=== PATIENT | female | born 1980 | race Caucasian/White ===

== ENCOUNTER 2017-05-22 16:52 | Emergency (ER) | payer MEDICARE, MEDICAID ==
[~2017-05-22] VITALS: Ht 157.5 cm; Wt 56.7 kg
[~2017-05-22 16:52] MED LIST: ATIVAN1 M1 PO; HYDROCHLOROTH12.5 M1 PO; KLONOPIN0.5 M1 PO; MOBIC7.5 MG PO; NORCO1 TAB PO; TRAZODONE50 MG PO; WELLBUTRIN100 MG PO; ZANAFLEX 2MG TAB2 MG PO; ZYRTEC10 M3 PO
--- NOTE | 2017-05-22 18:13 | Emergency Room Report ---
See Addendum History of Present Illness Time Seen by [id number] Presenting Problem in Triage Pt arrived:Walked Presenting Problem:FELL AND BACK OF HEAD HIT SINK, FRONT HIT BATHTUB. 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 N Clinical Suspician of Infection? N Mental Status: 1 - Regular (Normal Baseline) Sepsis Risk:Low Sepsis Risk Have you (or family members/close friends) recently traveled outside the [place]? N If Yes, where/when: Have you had exposure to infectious disease within the past month? TB? Other? Specify: Source patient, RN notes reviewed Exam Limitations no limitations Comment Pt fell on Thursday morning in her home and hit the back of her head on the sink and front of head on bathtub with ? LOC for about 1 hour. Did not see anybody until today and went to Dr. Weeks' office and saw CHAPTER RELATIONS ADMINISTRATOR who sent her here for evaluation. She has a history of tachycardia for which she takes atenolol and was not taking it at the time this happened and she feels she had a rapid heartbeat that caused her to black out. Cardiac Chest Pain Chest pain indicative of cardiac No ALLERGIES Coded Allergies: codeine (Mild, 05/22/17) morphine (Mild, 05/22/17) Home Medications Reported Medications Hydrochlorothiazide (Hydrochlorothiazide 12.5MG) 12.5 MG PO DAILY CETIRIZINE HCL (Zyrtec) 10 MG PO HYDROCODONE/ACETAMINOPHEN (Garita 7.5-325 Tablet) 1 TAB PO Q6HPN Meloxicam (Mobic 7.5MG) 7.5 MG PO BID Clonazepam (Klonopin) 0.5 MG PO PRN Bupropion Hcl (Wellbutrin) 100 MG PO DAILY Trazodone Hcl (Trazodone HCl) 50 MG PO DAILY Tizanidine Hydrochloride (Zanaflex 2MG Tab) 2 MG PO DAILY History Medical History General Angina: No MD: No Hypertension? Yes Hyperlipidemia? No COPD? No Asthma? No CVA? No Seizures? No Diabetes? No GB Disease: No MRSA? No TB? No Cancer? 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 Lung Sounds bilateral: normal breath sounds. 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 No Results/Orders Orders Procedure Date/time Status DIET-NOTHING BY MOUTH 05/[address] HEAD REQ 05/[address] SCAN REQ 05/22 1658 Complete XRAY/CT/US XRAY/CT/US CT head, C-spine CT interpretation by discussed w/radiologist Time results known: 1913 CT Results normal/NAD, no fracture seen Departure Departure Time of Disposition 1913 Disposition DC Home or Self Care(routine) Clinical Impression Primary Impression: Cervicalgia Secondary Impressions: Closed head injury with brief loss of consciousness Condition STABLE Referrals SACHIN BEATTY (PCP/Family): 3 Days-Call Office Patient Instructions DI for Neck Pain, Neck Pain (Alternative Therapy) Additional Instructions Alternate ice and heat and continue to use whichever helps the most. Use meds as directed and followup with PCP as needed if no improvement in 2 to 3 days Discharge Counseling Counseled pt/family regarding diagnosis, test results, medications/RX, home care, follow up needs Prescriptions Current Visit Scripts Methocarbamol (Robaxin) 500 MG PO BID #60 TAB DICLOFENAC SODIUM (Diclofenac 50MG) 50 MG PO BID #40 TAB ED Critical Care Critical Care No If Critical Care minutes are documented, the time involved in the performance of seperately reportable procedures was not counted toward critical care time documented. I directly delivered medical care to this critically ill and/or injured patient. Timely evaluation and treatment was necessary to address the significant organ system(s) dysfunction present in this patient. at 1914
--- NOTE | 2017-05-22 18:13 | Emergency Room Report ---
See Addendum History of Present Illness Time Seen by 900 Presenting Problem in Triage Pt arrived:Walked Presenting Problem:FELL AND BACK OF HEAD HIT SINK, FRONT HIT BATHTUB. 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 N Clinical Suspician of Infection? N Mental Status: 1 - Regular (Normal Baseline) Sepsis Risk:Low Sepsis Risk Have you (or family members/close friends) recently traveled outside the [place]? N If Yes, where/when: Have you had exposure to infectious disease within the past month? TB? Other? Specify: Source patient, RN notes reviewed Exam Limitations no limitations Comment Pt fell on Thursday morning in her home and hit the back of her head on the sink and front of head on bathtub with ? LOC for about 1 hour. Did not see anybody until today and went to Dr. Weeks' office and saw CONSULTING PSYCHIATRIST who sent her here for evaluation. She has a history of tachycardia for which she takes atenolol and was not taking it at the time this happened and she feels she had a rapid heartbeat that caused her to black out. Cardiac Chest Pain Chest pain indicative of cardiac No ALLERGIES Coded Allergies: codeine (Mild, 05/22/17) morphine (Mild, 05/22/17) Home Medications Reported Medications Hydrochlorothiazide (Hydrochlorothiazide 12.5MG) 12.5 MG PO DAILY CETIRIZINE HCL (Zyrtec) 10 MG PO HYDROCODONE/ACETAMINOPHEN (Porum 7.5-325 Tablet) 1 TAB PO Q6HPN Meloxicam (Mobic 7.5MG) 7.5 MG PO BID Clonazepam (Klonopin) 0.5 MG PO PRN Bupropion Hcl (Wellbutrin) 100 MG PO DAILY Trazodone Hcl (Trazodone HCl) 50 MG PO DAILY Tizanidine Hydrochloride (Zanaflex 2MG Tab) 2 MG PO DAILY History Medical History General Angina: No CT: No Hypertension? Yes Hyperlipidemia? No COPD? No Asthma? No CVA? No Seizures? No Diabetes? No GB Disease: No MRSA? No TB? No Cancer? 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 Lung Sounds bilateral: normal breath sounds. 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 No Results/Orders Orders Procedure Date/time Status DIET-NOTHING BY MOUTH 05/[address] HEAD REQ 05/[address] SCAN REQ 05/22 1658 Complete XRAY/CT/US XRAY/CT/US CT head, C-spine CT interpretation by discussed w/radiologist Time results known: 1913 CT Results normal/NAD, no fracture seen Departure Departure Time of Disposition 1913 Disposition DC Home or Self Care(routine) Clinical Impression Primary Impression: Cervicalgia Secondary Impressions: Closed head injury with brief loss of consciousness Condition STABLE Referrals SACHIN BEATTY (PCP/Family): 3 Days-Call Office Patient Instructions DI for Neck Pain, Neck Pain (Alternative Therapy) Additional Instructions Alternate ice and heat and continue to use whichever helps the most. Use meds as directed and followup with PCP as needed if no improvement in 2 to 3 days Discharge Counseling Counseled pt/family regarding diagnosis, test results, medications/RX, home care, follow up needs Prescriptions Current Visit Scripts Methocarbamol (Robaxin) 500 MG PO BID #60 TAB DICLOFENAC SODIUM (Diclofenac 50MG) 50 MG PO BID #40 TAB ED Critical Care Critical Care No If Critical Care minutes are documented, the time involved in the performance of seperately reportable procedures was not counted toward critical care time documented. I directly delivered medical care to this critically ill and/or injured patient. Timely evaluation and treatment was necessary to address the significant organ system(s) dysfunction present in this patient. at 1917
--- NOTE | 2017-05-22 18:15 | RADIOLOGY REPORT PS360 ---
CT CERVICAL SPINE W/O CONT INDICATION: Neck pain following injury FELL ORDERING PHYSICIAN: PATIENT AGE: 37 years COMPARISON: None TECHNIQUE: Axial images are obtained without contrast. Sagittal and coronal reformatted images are reviewed as well. FINDINGS: There is slight reversal the cervical lordosis which may be due to patient positioning or muscle spasm. No acute fracture or dislocation is evident. No lytic or blastic changes. Facet arthritic changes are present on the right at T2-T3 and T3-T4 with mild right-sided foraminal narrowing. Lung apices are clear. Scattered small nodes are present in the neck. Postsurgical changes are present of the mandible. There is some dystrophic calcification along the right body of the mandible and posterior to the mentum and could be related to prior trauma. Mild osteoarthritic changes involve the right TMJ IMPRESSION: 1. No acute fracture 2. Other nonacute findings as described above IMPRESSION:
--- NOTE | 2017-05-22 18:15 | RADIOLOGY REPORT PS360 ---
CT HEAD W/O CONTRAST HISTORY: Headache, contusion, swelling left side of head following injury FELL ORDERING PHYSICIAN: PATIENT AGE: 37 years COMPARISON: None TECHNIQUE: Axial images obtained without contrast. Brain and bone windows reviewed. FINDINGS: No midline shift, mass effect, intracranial hemorrhage, hydrocephalus, or extra-axial fluid collection is evident. The calvarium has an unremarkable appearance. No mastoid effusion. The visualized paranasal sinuses are unremarkable. IMPRESSION: Negative CT head without contrast. No acute finding.
[2017-05-22] MEDS ORDERED: DICLOFENAC 50MG50 MG PO (19:19)
[2017-05-22] MEDS ORDERED: ROBAXIN500 M1 PO (19:19)
--- OUTSIDE RECORDS SUMMARY | 2017-05-22 19:27 | External Medical Summary Rpt | CCD ---
Author Author , ROSE Organization ROSE Address Unknown Phone Care Team Providers Care Electrical Automation Engineer Name Role Phone ABLECARE, ABLECARE Unavailable Unavailable ADVANCED TISSUE Unavailable Unavailable MANAGEMENT, ADVANCED TISSUE MANAGEMENT AD[facility]ED TISSUE Unavailable Unavailable MANAGEMENT, ADVANCED TISSUE MANAGEMENT ALMES ALMLIZZ Unavailable Unavailable BAKAITLIN BAKAITLIN Unavailable Unavailable DENNISPABLO VALADEZARD Unavailable Unavailable DENNIS KAT, DENNIS Unavailable Unavailable JOSELIN ERVIN, Unavailable Unavailable ,PSC, SONNY ERVIN MD,PSC [facility] Unavailable Unavailable [facility], [facility] Unavailable Unavailable MEDICAL GROUP, [facility] Unavailable Unavailable WIPING RAG WASHER, [facility] WIPING RAG WASHER [facility] Unavailable Unavailable CTR, [facility] Unavailable Unavailable CTR, [facility] LAINE MIAH, LAINE Unavailable Unavailable MIAH LAINE MIAH, LAINE Unavailable Unavailable MIAH KEERTHI ANGULO Unavailable Unavailable ANNETTE [facility], Unavailable Unavailable INC, [facility], Unavailable Unavailable INC, [facility] PETTY KAMERON, PETTY KAMERON Unavailable Unavailable [facility] Unavailable Unavailable [facility] SHELLIE, Unavailable Unavailable SHELLIE ARMSTRONG, Unavailable Unavailable SEBASTIAN-LUIS ARMSTRONG [facility], Unavailable Unavailable [facility], Unavailable Unavailable [facility] Unavailable Unavailable [facility], [facility] Unavailable Unavailable [facility] Unavailable Unavailable ASSOC, [facility], Unavailable Unavailable [facility] Unavailable Unavailable [facility], [facility] Unavailable Unavailable PHYSICIAN PRA, [facility], Unavailable Unavailable [facility] TOÑO KRYS, Unavailable Unavailable TOÑO KRYS DANGARIA BLAKE, Unavailable Unavailable DANGARIA BLAKE LOOMIS, LOOMIS Unavailable Unavailable ENA BRA, ENA BRA Unavailable Unavailable DESKINS DIANA, DESKINS Unavailable Unavailable DIANA DO AN, DO AN Unavailable Unavailable [facility], [facility] Unavailable Unavailable CARTER JAM, CARTER JAM Unavailable Unavailable [facility], Unavailable Unavailable [facility], Unavailable Unavailable [facility] LÓPEZ, LÓPEZ Unavailable Unavailable [facility], Unavailable Unavailable [facility] GILBERT ANNETTE, GILBERT Unavailable Unavailable ANNETTE MARGARETTE RHO, MARGARETTE Unavailable Unavailable RHO HAGENSCHNEIDER KAMERON, Unavailable Unavailable HAGENSCHNEIDER KAMERON HAJIBRAHIM ZAFAR, Unavailable Unavailable HAJIBRAHIM ZAFAR GALVAN, GALVAN Unavailable Unavailable [facility] Unavailable Unavailable INC, [facility] LINCOLN ZEYNEP, LINCOLN Unavailable Unavailable ZEYNEP LINCOLN ZEYNEP, LINCOLN Unavailable Unavailable ZEY[facility]P YEH TRA, YEH TRA Unavailable Unavailable YEH TRA, YEH TRA Unavailable Unavailable BAUM LEL, BAUM LEL Unavailable Unavailable [facility] Unavailable Unavailable [facility], [facility] BELIA III NICHOLAS, Unavailable Unavailable BELIA III NICHOLAS [facility] Unavailable Unavailable [facility], [facility] & Unavailable Unavailable [facility] Fifi Aviles MD, Unavailable Unavailable Fifi CISNEROS, KING AMELIA Unavailable Unavailable [facility] & Unavailable Unavailable [facility], [facility] Unavailable Unavailable HOLDING, [facility] Unavailable Unavailable HOLDINGS, [facility] Unavailable Unavailable HOLDINGS, [facility] Unavailable Unavailable HOLDINGS, [facility] IRMA NAMITA, IRMA NAMITA Unavailable Unavailable CARDENAS, CARDENAS Unavailable Unavailable LAUSE FED, LAUSE FED Unavailable Unavailable LAUSE FED, [facility] FED Unavailable Unavailable GERRY FAYETTE URBAN Unavailable Unavailable COGOVT, GERRY FAYETTE URBAN COGOVT [facility] Unavailable Unavailable SERVICES, [facility] Unavailable Unavailable ASSOCIAT, [facility], LEGAL REFEREE [facility] Unavailable Unavailable CO [facility], [facility], [facility]GAL REFEREE [facility], Unavailable Unavailable LLC, [facility], [facility], Unavailable Unavailable LLC, [facility], [facility], Unavailable Unavailable [facility], Unavailable Unavailable [facility] STILES AMELIA, STILES AMELIA Unavailable Unavailable OZUMBA ANDREW, OZUMBA Unavailable Unavailable ANDREW [facility], [facility] Unavailable Unavailable [facility], LLC PICKLESIMER JR HERO, Unavailable Unavailable PICKLESIMER JR HERO HOUSTON IRWIN, HOUSTON IRWIN Unavailable Unavailable JACI HEN, JACI Unavailable Unavailable HEN CEDILLO MUH, CEDILLO Unavailable Unavailable MUH ELISABETH LUCIA, ELISABETH Unavailable Unavailable LUCIA NIETO GRE, Unavailable Unavailable NIETO GRE NIETO GRE, Unavailable Unavailable NIETO GRE BA GAV, BA GAV Unavailable Unavailable BA GAV, BA GAV Unavailable Unavailable WILKINS ANNETTE, WILKINS Unavailable Unavailable ANNETTE SARLIS DEM, SARLIS Unavailable Unavailable DEM COUNTS INCLUDE [facility] Unavailable Unavailable EMERGENCY PHYS, COUNTS INCLUDE 234 [facility] AT [facility] EMERGENCY PHYS COUNTS INCLUDE 234 [facility] Unavailable Unavailable EMERGENCY PHYSI, COUNTS INCLUDE 234 [facility] AT THE [facility] EMERGENCY PHY[facility] Unavailable Unavailable CENTER, [facility] Unavailable Unavailable CENTER, [facility] MUNCIE TANOUS, JR EDW, Unavailable Unavailable TANOUS, JR EDW TANNELLY, JR EDW, Unavailable Unavailable TANOUS, JR EDW TIKHTMAN AMY, Unavailable Unavailable TIKHTMAN AMY [facility] Unavailable Unavailable ASSOCIATES, [facility], Unavailable Unavailable [facility] WAFFORD SANTINO, WAFFORD Unavailable Unavailable SANTINO MALINDA QUINTANILLA, MALINDA QUINTANILLA Unavailable Unavailable STACIE, Unavailable Unavailable STACIE BRITNEY IRWIN, BRITNEY Unavailable Unavailable IRWIN Purpose Continuity of Care Document - 12-01-2012 through 2016 Problems Code Diagnosis DOS Provider Status K208 OTHER 03-09-2017 [facility] ESOPHAGITIS PHYS SURG CTR R1013 EPIGASTRIC 03-09-2017 [facility] [place] [facility] ANESTHESIA U3748QH SPRAIN 02-19-2017 [facility] UNSPECIFIED BRACING, SITE LT INC KNEE INITIAL ENCNTR M25.562 PAIN IN 02-11-2017 LEFT KNEE P16876 PAIN IN 02-10-2017 [facility] M2392 UNSPECIFIED 02-05-2017 [facility] INTERNAL BRAC[facility], DERANGEMENT INC OF LEFT KNEE R92.8 OTHER 01-20-2017 ABNORMAL AND INCONCLUSIV E FINDINGS ON DIAGNOSTIC IMAGING OF BREAST R928 OTH ABNORM 01-19-2017 [facility] E FIND ON DX IMAG BREAST F45.8 OTHER 01-07-2017 [facility] DISORDERS Z12.31 ENCOUNTER 01-07-2017 FOR SCREENING MAMMOGRAM FOR MALIGNANT NEOPLASM OF BREAST K219 GASTRO-ESOP 01-06-2017 [facility] [place] [facility] REFLUX RADIOLOGY DISEASE WITHOUT ESOPHAGITIS U00657 PAIN IN 01-06-2017 [facility] [place] LEFT HIP RADIOLOGY M545 LOW BACK 01-06-2017 [facility] [place] [facility] R55820 SPONDYLOSIS 2017 SONNY W/O ARCADIO, MYELOPATH/R ,PSC ADICULOPATH Y LUMB RGN Y43416 PHARMACY ANCILLARY 11-21-2016 SONNY CURRENT USE ARCADIO OF OPIATE ,PSC ANALGESIC J101 FLU D/T OTH 10-14-2016 [facility] ID FLU CLINIC VIRUS OTH RESP MANIFESTATI ONS K838 OTHER 09-29-2016 [facility] SPECIFIED HEALTH DISEASES OF [place] BILIARY TRACT R1010 UPPER 09-29-2016 [facility] UNSPECIFIED R1011 RIGHT UPPER 09-23-2016 [facility]OCIATES J020 STREPTOCOCC 09-18-2016 [facility] AL CLINIC PHARYNGITIS L089 LOCAL INF 09-18-2016 [facility] THE SKIN & CLINIC SUBCUTANEOU S TISSUE UNS I8985XL ADVERSE 09-18-2016 [facility] EFFECT UNS CLINIC SYSTEMIC ABX INITIAL ENCNTR I01696 UNSPECIFIED 08-14-2016 [facility] OVARIAN [facility] CYST LEFT FROST SIDE R109 UNSPECIFIED 08-14-2016 [facility]IN [facility] G8929 OTHER 08-08-2016 [facility] M461 SACROILIITI 01-17-[address] S NOT SURGERY ELSEWHERE CENTER CLASSIFIED H32632 UNS ACUTE 09-06-2015 [facility] NONINFECTIV CLINIC E OTITIS EXTERNA RIGHT EAR J0190 ACUTE 09-06-2015 [facility] SINUSITIS CLINIC UNSPECIFIED M5033 OTH CERV 08-06-2015 [place] DISC DEGEN PAIN CARE & CERVICOTHOR [facility] ACIC REGION M5136 OTH 08-06-2015 [place] INTERVERTEB PAIN CARE & RAL DISC [facility] DEGEN LUMBAR REGION M542 CERVICALGIA 08-06-2015 [place] [facility] V31859 PAIN IN 06-18-2015 [facility] [place] RIGHT RADIOLOGY SHOULDER O00182 PAIN IN 06-18-2015 [facility] [place] RIGHT WRIST RADIOLOGY S06723 PAIN IN 06-18-2015 [facility] [place] RIGHT KNEE RADIOLOGY A72086 PAIN IN 06-18-2015 [facility] [place] RIGHT ANKLE RADIOLOGY U33528 PAIN IN 06-18-2015 [facility] [place] RIGHT HAND RADI[facility] C87809 PAIN IN 06-18-2015 [facility] [place] RIGHT FOOT RADIOLOGY Z39451B CONTUSION 06-18-2015 [facility] RIGHT N EMERGENCY SHOULDER PHYS INITIAL ENCOUNTER G88597V CONTUSION 06-18-2015 [place] UNSPECIFIED [facility] SHOULDER HOSPITAL INITIAL ENCOUNTER S04116Q CONTUSION 06-18-2015 [place] OF [facility] UNSPECIFIED HOSPITAL WRIST INITIAL ENCOUNTER T75700F CONTUSION 06-18-2015 [facility] OF RIGHT N EMERGENCY HAND PHYS INITIAL ENCOUNTER P31100W CONTUSION 06-18-2015 [place] [facility] UNSPECIFIED HOSPITAL HAND INITIAL ENCOUNTER B6956XA CONTUSION 06-18-2015 [facility] [facility] UNSPECIFIED HOSPITAL KNEE INITIAL ENCOUNTER B9300LF CONTUSION 06-18-2015 [facility] RIGHT N EMERGENCY KNEE PHYS INITIAL ENCOUNTER Z6104NW CONTUSION 06-18-2015 [facility] [facility] UNSPECIFIED HOSPITAL ANKLE INITIAL ENCOUNTER K2096DC CONTUSION 06-18-2015 [facility] RIGHT N EMERGENCY ANKLE PHYS INITIAL ENCOUNTER M8433YQ CONTUSION 06-18-2015 [facility] [facility] UNSPECIFIED HOSPITAL FOOT INITIAL ENCOUNTER K49CBXH UNSPECIFIED 06-18-2015 [facility] [place] N EMERGENCY INITIAL PHYS ENCOUNTER G894 CHRONIC 06-11-2015 [place] PA[place] [facility]IN CARE & SYNDROME [facility] J189 PNEUMONIA 05-31-2015 [facility] EMERGENCY ORGANISM PHYS R05 COUGH 05-31-2015 [facility] N EMERGENCY PHYS Z09 ENC F/U 05-30-2015 [facility] EXAM AFTR CLINIC CMPL TX OTH THAN MALIG NEOPLSM R0602 SHORTNESS 05-28-2015 [facility] OF BREATH CLINIC R062 WHEEZING 05-28-2015 [facility] 10611 DISPLCMT 04-17-2015 [place] PA[place] LUMBAR CARE & INTERVERT [facility] DISC W/O HIG MYELOPATHY 67726 DEGEN 04-17-2015 [place] LUMBAR/LUMB CARE & OSACRAL [facility] INTERVERTEB HIG RAL DISC 7244 THORACIC/SUDHA 04-17-2015 [place] PA[place] MBOSACRAL CARE & NEURITIS/RA [facility] DICULITIS HIG UNSPEC 7248 OTHER 04-17-2015 [place] PA[place] SYMPTOMS CARE & REFERABLE [facility] TO BACK HIG 4619 ACUTE 04-13-2015 [facility] SINUSITIS, CLINIC UNSPECIFIED 57431 OTHER 04-13-2015 [facility] MALAISE AND CLINIC FATIGUE 60229 PALLOR 04-13-2015 [facility] 53492 PAINFUL 04-13-2015 [facility] RESPIRATION [facility]IN[facility] 92051 UNSPECIFIED 02-26-2015 [place] PA[place] CARE & ARTHROPATHY [facility] PELVIC HIG REGION AND THIGH 7202 SACROILIITI 02-26-2015 [place] PA[place] S NOT CARE & ELSEWHERE [facility] CLASSIFIED HIG 7242 LUMBAGO 02-26-2015 [place] [facility] [facility] & [facility] HIG 44667 OTHER 01-23-2015 [facility] PAIN V7109 OBSERVATION 01-23-2015 [facility] OTHER Claritics SUSPECTED MENTAL CONDITION V5869 LONG-TERM 11-28-2014 [facility] Kate (CURRENT) TORI USE OF HOLDINGS OTHER MEDICATIONS 6202 OTHER AND 11-24-2014 [facility] UNSPECIFIED CLINIC OVARIAN PLLC CYST 27523 DEGEN 11-24-2014 [facility] THORACIC/TH [facility] ORACOLUMBAR INC INTERVERTEB RAL DISC 7241 PAIN IN 11-24-2014 [facility]ORAC[facility] SPINE INC 52554 SPASM OF 11-24-2014 [facility]CLE [facility] INC 36368 ABDOMINAL 11-24-2014 [facility] PAIN, LEFT CLINIC LOWER PLLC QUADRANT V571 OTHER 11-24-2014 [facility] PHYSICAL [facility] THERAPY INC 6259 UNSPEC 11-22-2014 [facility] SYMPTOM CLINIC ASSOC PLLC W/FEMALE GENITAL ORGANS V7231 ROUTINE 11-21-2014 [facility], GYNECOLOGIC [facility] AL EXAMINATION 7213 LUMBOSACRAL 11-20-2014 [place] PA[place] [facility]ARE & SPONDYLOSIS [facility] WITHOUT HIG MYELOPATHY 3558 UNSPECIFIED 09-25-2014 [facility] FED MONONEURITI S OF LOWER LIMB 03650 ULCER OF 09-25-2014 [facility] HEEL AND MIDFOOT 7092 SCAR 09-25-2014 [facility] CONDITION AND FIBROSIS OF SKIN 51057 REFLEX 09-08-2014 [facility] DYSTROPHY OF THE LOWER LIMB 88943 UNSPEC 09-08-2014 [facility] INTRAPELV SERV PROTRUSION FOUNDATION ACETAB PELV RGN&THI 15816 EFFUSION OF 09-08-2014 [facility] JOINT 49056 PAIN IN 09-08-2014 [facility] LOWER LEG 7226 DEGENERATIO 09-08-2014 [facility] INTERVERTEB RAL DISC SITE UNSPEC 7291 UNSPECIFIED 09-08-2014 [facility] MYOSITIS 7295 PAIN IN 09-08-2014 [facility] TISSUES OF LIMB 89486 PRESSURE 09-04-2014 [facility] HEEL TISSUE MANAGEMENT 9172 FOOT&TOE 08-28-2014 [facility] BLISTER WITHOUT MENTION OF INFECTION 2768 HYPOPOTASSE 08-24-2014 [facility] MISSAEL N EMERGENCY PHYS 4580 ORTHOSTATIC 08-24-2014 [facility] N EMERGENCY HYPOTENSION PHYS 00514 UNSPECIFIED 08-24-2014 [facility] N EMERGENCY CONSTIPATIO PHYS N 7802 SYNCOPE AND 08-24-2014 [facility] [place] COLLAPSE RADIOLOGY 58465 NAUSEA WITH 08-24-2014 [facility] VOMITING CLINIC 7881 DYSURIA 08-24-2014 [facility] 7098 OTHER 08-02-2014 [facility] SPECIFIED CLINIC DISORDER OF SKIN V679 UNSPECIFIED 07-24-2014 [facility] FOLLOW-UP CLINIC EXAMINATION 57140 UNSPECIFIED 07-21-2014 [facility] REFLEX N EMERGENCY SYMPATHETIC PHYS DYSTROPHY 6827 CELLULITIS 07-21-2014 [facility] AND ABSCESS N EMERGENCY OF FOOT PHYS EXCEPT TOES 20476 ULCER OF 07-13-2014 [facility] OTHER PART N EMERGENCY OF FOOT PHYS 36578 OSTEOARTHRO 07-13-2014 [facility] UNSPEC RADIOLOGY GEN/LOC ASSOCIAT PELV REGION&THIG H 7243 SCIATICA 07-13-2014 [facility] 7245 UNSPECIFIED 07-13-2014 [facility] 7820 DISTURBANCE 05-02-2014 RELIG[facility] OF SKIN NEUROLOGY SENSATION WIPING RAG WASHER 27307 ESOPHAGEAL 03-07-2014 [facility]ETO REFLUX GRE 36449 REFLUX 02-09-2014 JR NEO ESOPHAGITIS EDW 21416 NAUSEA 02-09-2014 [facility] ALONE GRE 14709 VOMITING 02-09-2014 [facility] ALONE GRE 11586 ABDOMINAL 02-09-2014 BA GAV PAIN, UNSPECIFIED SITE 57159 DEHYDRATION 02-03-2014 [facility] N EMERGENCY PHYSI 49951 VOLUME 01-29-2014 [facility] DEPLETION RELIGION UNSPECIFIED HOSP 7804 DIZZINESS 01-29-2014 [facility] AND RELIGION GIDDINESS HOSP 65845 ABDOMINAL 01-29-2014 [facility] PAIN, RELIGION EPIGASTRIC HOSP 7934 NONSPECIFIC 01-10-2014 LAINE MIAH ABN FINDING RAD & OTH EXAM GI TRACT 65798 ABDOMINAL 01-02-2014 [facility] PAIN RIGHT REGIONAL UPPER MEDICAL QUADRANT CENTE 7933 NONSPECIFIC 01-02-2014 [facility] ABN FINDNG REGIONAL RAD&OTH MEDICAL EXAM BILARY ZAK TRCT 25051 FEVER 12-13-2013 [facility] UNSPECIFIED REGIONAL PHYSICIAN PRA 5758 OTHER 11-30-2013 [facility] SPECIFIED DISORDER OF GALLBLADDER 07299 SPONDYLOSIS 11-02-2013 [place] WITH PAIN CARE & MYELOPATHY [facility] LUMBAR REGION 3559 MONONEURITI 10-03-2013 [facility] [place] S OF ORTHOPAEDIC UNSPECIFIED S PLC SITE 56298 PAIN IN 10-03-2013 [facility] [place] JOINT, ORTHOPAEDIC ANKLE AND S PLC FOOT 7224 DEGENERATIO 09-05-2013 [place] N OF PAIN CARE & CERVICAL [facility] INTERVERTEB RAL DISC 6869 UNSPEC 08-15-2013 [facility] TRA LOCAL INFECTION SKIN&SUBCUT ANEOUS TISSUE 59263 SCOLIOSIS , 07-07-2013 [facility], IDIOPATHIC LEGAL REFEREE [facility] 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 56527 UNSPECIFIED 05-20-2013 [facility]KLE [facility] SPRAIN AND STRAIN E8889 UNSPECIFIED 05-20-2013 [place] [facility] E927.0 E927.0 05-20-2013 Jose OVEREXERTIO [facility] N FROM Hospital SUDDEN STRENUOUS MOVEMENT V14.8 V14.8 05-20-2013 Jose HX-DRUG [facility] ALLERGY [facility] V58.69 V58.69 OTH 05-20-2013 Jose GANDHI,LT,ESTEBAN [facility] ENT USE Hospital 3441 PARAPLEGIA 04-19-2013 [facility] 66927 OTH 01-04-2013 [facility] NEUROLOGY ETAL SX REFERABLE LIMBS OTH 76406 SWELLING OF 01-03-2013 [facility], LIMB LEGAL REFEREE [facility] 7292 UNSPECIFIED 12-16-2012 [facility] NEURITIS AND RADICULITIS 5959 UNSPECIFIED 12-10-2012 [facility] OF [facility]STIT[facility] Allergies, Adverse Reactions, Alerts Type Drug Allergy Adverse Reaction to Substance Substance Reaction Severity Morphine I-HIVES Severe Medications Na ND Rx Da Fi Fi Am Da Di Ph RX Ph St me C No te ll ll ou ys ag ar # ys at rm s nt no ma ic us Or Da si cy ia de te s n re d CE 45 09 10 60 30 00 SO Ac TI 80 -1 -2 .0 00 PE ti RI 20 9- 0- 00 00 RS ve ZI 72 20 20 57 NE 16 17 17 29 FA -P [address] LY ER UG 5- 12 0 MG TA B Vital Signs 05-20-2013 16:52 Name Value Interpretat Reference Comment ion Range Body 97.9 [degF] Temperature BP 70 mm[Hg] Diastolic BP Systolic 102 mm[Hg] Heart 64 /min Rate/Pulse O2% 98 % Respiratory 18 /min Rate Results Labs Lab Lab Date Result Refere Interp Status Commen Order Detail nces retati t Range on LPL SerPl-cCnc (09-29-2016 09:55) Lipase 21 U/L 6-51 complet SerPl-c 017 ed Cnc 09:55 GGT SerPl-cCnc (09-29-2016 09:55) GGT 47 U/L 0-37 complet SerPl-c 017 ed Cnc 09:55 Comp Metab 1998 Pnl SerPl (09-29-2016 09:55) Comment: National [employer] Guidelines Comment: Comment: Stage Description GFR Comment: 1 Normal or High 90+ Comment: 2 Mild decrease 60-89 Comment: 3 Moderate decrease 30-59 Comment: 4 Severe decrease 15-29 Comment: 5 Kidney failure <15 Anion 5.0 3.0-11. complet Gap3 017 mmol/L 0 ed SerPl-s 09:55 Cnc BUN/Cre 20.0 7.0-25. complet at 017 0 ed SerPl 09:55 Albumin 1.6 1.5-2.5 complet /Glob 017 g/dL ed SerPl 09:55 Globuli 2.5 complet n Ur 017 gm/dL ed Elph-mC 09:55 nc GFR/BSA 94 >60 complet .pred 017 mL/min/ ed SerPl 09:55 1.73 MDRD-Ar VRat Bilirub 09-29-2 0.2 0.3-1.2 complet 017 mg/dL ed SerPl-m 09:55 Cnc ALP 06-2 55 U/L 25-100 complet SerPl-c 017 ed Cnc 09:55 AST 06-2 32 U/L 0-33 complet SerPl-c 017 ed Cnc 09:55 ALT 06-2 26 U/L 7-40 complet SerPl w 017 ed 09:55 P-5'-P- cCnc Albumin 06-2 3.90 3.20-4. complet 017 g/dL 80 ed SerPl-m 09:55 Cnc Prot 06-2 6.4 5.7-8.2 complet SerPl-m 017 g/dL ed Cnc 09:55 Calcium 09-29-2 9.3 8.7-10. complet 017 mg/dL 4 ed XXX-sCn 09:55 c CO2 09-29-2 26.0 20.0-31 complet SerPl-s 017 mmol/L .0 ed Cnc 09:55 Chlorid 09-29-2 105 99-109 complet e 017 mmol/L ed SerPl-s 09:55 Cnc Potassi 09-29-2 3.2 3.5-5.5 complet um 017 mmol/L ed Bld-sCn 09:55 c Sodium 09-29-2 136 132-146 complet Bld-sCn 017 mmol/L ed c 09:55 Creat 09-29-2 0.70 0.60-1. complet Bld-mCn 017 mg/dL 30 ed c 09:55 BUN 06-2 14 9-23 complet Bld-mCn 017 mg/dL ed c 09:55 Glucose 06-2 80 70-100 complet 017 mg/dL ed Bld-mCn 09:55 c CBC W Diff pnl,unspecified Bld (09-29-2016 09:55) WBC -06-2 4.06 3.50-10 complet nRBC 017 10*3/mm .80 ed cor # 09:55 3 Bld Imm 0306-2 0.00 0.00-0. complet Granulo 017 10*3/mm 03 ed cytes # 09:55 3 Bld Basophi 03-06-2 0.02 0.00-0. complet ls # 017 10*3/mm 20 ed Bld 09:55 3 Auto Eosinop 03-06-2 0.06 0.10-0. complet hil # 017 10*3/mm 30 ed Bld 09:55 3 Auto Monocyt 03-06-2 0.26 0.00-1. complet es # 017 10*3/mm 00 ed Bld 09:55 3 Auto Lymphoc -06-2 1.76 0.60-4. complet ytes # 017 10*3/mm 80 ed Bld 09:55 3 Auto Neutrop 03-06-2 1.96 1.50-8. complet hils # 017 10*3/mm 30 ed Bld 09:55 3 Auto Imm 06-2 0.0 % 0.0-0.6 complet Granulo 017 ed cytes 09:55 NFr Bld Basophi 06-2 0.5 % 0.0-1.0 complet ls NFr 017 ed Bld 09:55 Auto Eosinop -06-2 1.5 % 0.0-3.0 complet hil NFr 017 ed Bld 09:55 Auto Monocyt 06-2 6.4 % 0.0-12. complet es NFr 017 0 ed Bld 09:55 Auto Lymphoc 06-2 43.3 % 24.0-44 complet ytes 017 .0 ed NFr Bld 09:55 Auto Neutrop 06-2 48.3 % 41.0-71 complet hils 017 .0 ed NFr Bld 09:55 Auto Platele 06-2 230 150-450 complet t # Bld 017 10*3/mm ed Auto 09:55 3 PMV Bld 06-2 9.7 fL 6.0-12. complet Auto 017 0 ed 09:55 RDW RBC -06-2 47.3 fl 37.0-54 complet Auto 017 .0 ed 09:55 RDW RBC -06-2 12.5 % 11.3-14 complet 017 .5 ed Auto-Rt 09:55 o MCHC 09-29-2 32.8 32.0-36 complet RBC 017 g/dL .0 ed Auto-mC 09:55 nc MCH RBC 03-06-2 34.4 pg 27.0-31 complet Qn 017 .0 ed Auto 09:55 MCV RBC 09-29-2 104.9 80.0-99 complet Auto 017 fL .0 ed 09:55 Hct VFr 09-29-2 40.3 % 34.5-44 complet Bld 017 .0 ed Auto 09:55 Hgb 09-29-2 13.2 11.5-15 complet Bld-mCn 017 g/dL .5 ed c 09:55 RBC # 06-2 3.84 3.89-5. complet Bld 017 10*6/mm 14 ed Auto 09:55 3 Procedures Procedure DOS Code Location Performer Comment EGD 27426 RELIGION RELIGION TRANSORAL 7 PHYS SURG PHYS SURG BIOPSY CTR CTR SINGLE/MU LTIPLE ANE 57107 [facility] UPPER GI 7 [place] ENDOSCOPY ANESTHESI PROXIMAL A TO DUODENUM KNEE L1812 [facility] 7 BRACING, BRACING, [employer]LAST[employer] INC WITH JOINTS PREFAB ADD LOW L2795 [facility] EXTREM 7 BRACING, BRACING, ORTHOTIC INC INC KNEE [facility] [place] [address] [facility] J[facility] LOWER [address] [facility] W/O CONTRAST MATRL KO ELAST L1820 [facility] W/CONDYLR 7 BRACING, BRACING, PADS&JNT INC INC PRFAB INCL FIT&ADJ DIAGNOSTI G0206 [address] HY INCL CAD WHEN PERF; UNI RADEX 87674 [facility] [place] [facility] ESOPHAGUS 7 RADIOLOGY RADEX 66462 [facility] [place] [facility] SPINE 7 RADIOLOGY LUMBOSACR AL MINIMUM 4 VIEWS RADIOLOGI 65423 [facility] [place] [facility] C 7 RADIOLOGY EXAMINATI ON KNEE 3 VIEWS RADEX HIP 24716 [facility] [place] [facility] 7 RADIOLOGY UNILATERA L WITH PELVIS 2-3 VIEWS COLLECTIO 49716 SONNY Cowan VENOUS 7 ARCADIO ERVIN BLOOD MD,PSC ,[place] [address] DENNIS DENNIS GLUTAMYLT 7 HECTOR ERVIN MD,PSC GAMMA DRUG TEST 94514 DENNIS DENNIS PRSMV 7 ROSA ISELA ERVIN MD,PSC CHEMISTRY ANALYZERS COMPREHEN 17366 DENNIS DENNIS SIVE 7 MELY ERVIN MD,PSC PANEL BLOOD 59749 DENNIS DENNIS COUNT 7 BRETT ERVIN MD,PSC AUTO&AUTO DIFRNTL WBC MOD SED 12095 DENNIS DENNIS SAME 7 ARCADIO ERVIN PHYS/QMURIEL SANTIAGO,PSC MD,PSC INITIAL 15 MINS 5/> YRS DSTR [address] [place] [facility] [address] [facility] SURGERY SURGERY [facility] CENTER FCT SNGL LMBR/SACR AL COMPREHEN 76921 RELIGION RELIGION SIVE 7 [facility] METABOLIC [facility] PANEL COLLECTIO 43221 RELIGION RELIGION N VENOUS 7 [facility] BLOOD [facility] [place] [address] RELIGION RELIGION ABDOMINAL 7 [facility] REAL [facility] TIME W/[place] [address] RELIGION RELIGION GLUTAMYLT 7 [facility] RASE [facility] GAMMA BLOOD 88452 RELIGION RELIGION COUNT 7 [facility] COMPLETE [facility] AUTO&[place] [address] RELIGION RELIGION LIPASE 7 [facility] [place]M Q9967 RELIGION RELIGION 300-399 7 [facility] MG/ML [facility] [place] [address] [facility] ABDOMEN & 7 RADIOLOGY PELVIS ASSOC W/CONTRAS T MATERIAL COLLECTIO 56114 DENNIS DENNIS N VENOUS 6 HOLLAND ERVIN MD,PSC VENIPUNCT URE COMPREHEN 98356 DENNIS DENNIS SIVE 6 MELY [place] [address] DENNIS DENNIS GLUTAMYLT 6 HECTOR ERVIN MD,PSC GAMMA BILIRUBIN 62725 DENNIS DENNIS DIRECT 6 MD ARCAIDO,PSC BLOOD 12576 DENNIS DENNIS COUNT 6 BRETT ERVIN MD,PSC AUTO&[place] [address] DENNIS DENNIS PHOSPHORU 6 Modesta ERVIN MD,[facility] INORGANIC DRUG TEST G0479 DENNIS DENNIS 6 ARCADIO, PRESUMP;Azael SANTIAGO,[facility] [place]STRUMENT [place] NJX 66312 STONE STONE DX/THER [address] AGT PVRT SURGERY SURGERY FACET JT CENTER CENTER LMBR/SAC 1 LEVEL COLLECTIO 19962 DENNIS DENNIS N VENOUS 6 JOSELIN ERVIN BLOOD ,[facility] VENIPUNCT URE COMPREHEN 93174 DENNIS DENNIS SIVE 6 JOSELIN ERVIN MD,[facility] [place] [address] DENNIS DENNIS GLUTAMYLT 6 JOSELIN REVIN MD,[facility] GAMMA BLOOD 78505 DENNIS DENNIS COUNT 6 JOSELIN ERVIN MD,[facility] AUTO&AUTO DIFRNTL WBC DRUG TEST G0479 DENNIS DENNIS 6 JOSELIN ERVIN PRESUMP;I ,[facility] NSTRUMENT ED CHEMISTRY ANLYZER BILIRUBIN 10382 DENNIS DENNIS DIRECT 6 [place]SEL[place] ERVIN MD,[place] [address] DENNIS DENNIS PHOSPHORU 6 JOSELIN ERVIN MD,[facility] INORGANIC MODERATE 49640 DENNIS [place] SEDATJ 6 RODY ERVIN SAME, MD,[facility] PHYS/QHP 5/>YRS INIT 30 MIN NJX 55977 STONE STONE DX/THER [address] AGT PVRT SURGERY SURGERY FACET JT CENTER CENTER LMBR/SAC 1 LEVEL NJX 97237 DENNIS [place]THR[place] DX/THER 6 RODY ERVIN PVRT ,PSC FACET JT LMBR/[place] 2ND [place] [address] DENNIS PAULRIP JOINT 6 RODY ERVIN MD,PSC Y&/ANES/S TEROID W/PEARL INJ PROC G0260 STONE STONE SI [address] JNT;ANES SURGERY SURGERY STEROID&/ CENTER CENTER TX AGT&ARTHR OGRPH NONCOVERE A9270 ELENA PARKER D ITEM OR 5 [facility] RADEX 94793 [facility] [place] WRIST 5 RADIOLOGY RHO COMPLETE MINIMUM 3 VIEWS THERAPEUT 30842 ELENA LUXON IC 5 [facility] TIC/DX INJECTION SUBQ/IM RADEX 60650 [facility] [place] SHOULDER 5 RADIOLOGY RHO COMPLETE MINIMUM 2 VIEWS RADIOLOGI 43379 [facility] [place] C 5 RADIOLOGY RHO EXAMINATI ON KNEE 3 VIEWS RADEX 74333 [facility] [place] HAND 5 RADIOLOGY RHO MINIMUM 3 VIEWS RADEX 14142 [facility] [place] ANKLE 5 RADIOLOGY RHO COMPLETE MINIMUM 3 VIEWS RADEX 79007 [facility] [place] SPINE 5 RADIOLOGY RHO LUMBOSACR AL 2/3 VIEWS RADEX 38206 [facility] [place] FOOT 5 RADIOLOGY RHO COMPLETE MINIMUM 3 VIEWS COLLECTIO 78996 ELENA PARKER N VENOUS 5 [facility] VENIPUNCT URE COMPREHEN 27205 ELENA PARKER SIVE 5 [facility] PANEL RADIOLOGI 60516 ELENA PARKER C EXAM [address] HOSPITAL VIEWS FRONTAL&L ATERAL BLOOD 37218 ELENA PARKER COUNT 5 [facility] AUTO&[place] G6031 [place] [facility] BENZODIAZ 5 PAIN CARE ANDREW EPINES & [facility] OPIATE G6056 [place] [facility] DRUG AND 5 PAIN CARE ANDREW METABOLIT & ES EACH [place] PROCEDURE ASSAY OF G6044 [facility] COCAINE 5 PAIN CARE PAIN CARE OR & & METABOLIT BLUE[place]RA BLUEGRA E INJECTION J0696 [facility] CORTES- [facility] CEFTRIAXO NE SODIUM PER 250 MG THERAPEUT 12633 [facility] CORTES- IC 5 [facility] PROPHYLAC TIC/DX INJECTION SUBQ/IM INJECTION J1100 [place] PAIN [place] PAIN 5 CARE & CARE & DEXAMETHO [facility] SONE HIG HIG SODIUM PHOSPHATE 1 MG DRUG 02728 ANGELA MADERAIU SCREEN 5 [facility], QUANTITAT LLC LLC K[place] PHENOBARB [place] MRI 41756 [place] PAIN [place] SPINAL 5 CARE & III NICHOLAS CANAL [facility] LUMBAR HIG W/O CONTRAST MATERIAL [place]AY OF G6044 [place] PAIN [place] PA[place] COCAINE 5 CARE & CARE & OR [facility] METABOLIT HIG HIG E ASSAY OF G6036 ANGELA MADERAIU IMIPRAMIN 5 [facility], E LLC LLC ALKALOIDS G6041 ANGELA MADERAIU URINE 5 [facility], [facility] KELSEY IMMUNOASS 37088 ANGELA MADERAIU AY 5 [facility], ANALYTE [facility] LLC QUAL/SEMI QUAL MULTIPLE STEP ASSAY OF G6030 ANGELA GARZAU AMITRIPTY 5 [facility], LINE LLC LLC ASSAY OF G6032 ANGELA GARZAU DESIPRAMI 5 [facility], NE LLC LLC ASSAY OF G6037 ANGELA MADERAIU NORTRIPTY 5 [facility] LINE LLC LLC THERAPEUT 35930 JOSE GARCIA IC PX 1/> 5 [facility] AREAS INC INC EACH 15 MIN EXERCISES APPL 83503 JOSE GARCIA MODALITY 5 [facility]OS[facility] 1/> AREAS INC INC ULTRASOUN D EA 15 MIN CREATININ 78711 [facility] E OTHER 5 [facility] SOURCE HOLDINGS HOLDINGS APPL 11094 JOSE GARCIA MODALITY 5 [facility]OS[facility] 1/> AREAS INC INC IONTOPHOR ESIS EA 15 MIN DRUG SCR G0434 [facility] NOT 5 TORI [facility] CHROMATOG HOLDINGS HOLDINGS RAPHIC; ANY NUMBER PT ENC OPIATE G6056 [facility] DRUG AND 5 [facility]ORI [facility]OR[facility] METABOLIT HOLDINGS HOLDINGS ES EACH PROCEDURE ASSAY OF G6053 LAB [facility] METHADONE 5 TORI TORI HOLDINGS [place] OF G6031 LAB [facility] JU[facility] BENZODIAZ 5 TORI TORI EPINES HOLDINGS HOLDINGS [place]AY OF G6040 [facility] ALCOHOL; 5 TORI TORI ANY HOLDINGS HOLDINGS SPECIMEN EXCEPT BREATH [place]AY OF G6042 [facility] AMPHETAMI 5 TORI TORI NE OR HOLDINGS HOLDINGS [place]ETHAMPHE [place]AY OF G6044 [facility] COCAINE 5 TORI TORI OR HOLDINGS HOLDINGS METABOLIT E THERAPEUT 07041 JOSE GARCIA IC PX 1/> 5 MEM H[facility]OSP AREAS INC INC EACH 15 MIN EXERCISES 53447 CHAMBERLA CHAMBERLA TRANSVAGI 5 [facility] NAL PLLC DUP-SCAN 44178 CHAMBERLA CHAMBERLA ARTL CARLI 5 IN [facility] ABDL/PEL/ PLLC SCROT&/RP R ORGN LMT CYTP C/V 95715 P&C LABS, PICKLESIM AUTO THIN 5 LLC ER JR HERO LYR PREPJ SCR MNL RESCR PHYS THERAPEUT 01599 JOSE GARCIA IC PX 1/> 5 [facility]OSP AREAS INC INC EACH 15 MIN EXERCISES APPL 17029 JOSE GARCIA MODALITY 5 [facility]OS[facility] 1/> AREAS INC INC ELEC STIMJ UNATTENDE D MANUAL 22376 JOSE GARCIA THERAPY 5 [facility]OSP TQS 1/> INC INC REGIONS EACH 15 MINUTES APPL 78723 JOSE GARCIA MODALITY 5 MEM H[facility] MEM HOSP 1/> AREAS INC INC ULTRASOUN D EA 15 MIN THERAPEUT 39029 JOSE GARCIA IC PX 1/> 5 MEM [facility]OS[facility] AREAS INC INC EACH 15 MIN EXERCISES PHYSICAL 96625 JOSE GARCIA THERAPY 5 [facility] HOSP EVALUATIO INC INC N ACUTE 04617 [facility] UNIVERS HEPATITIS 5 Y Y PANEL [facility] SEDIMENTA 00599 [facility] TION RATE 5 Y Y RBC [facility] AUTOMATED RHEUMATOI 68578 [facility] D FACTOR 5 Y Y QUANTITAT [facility] KELSEY RADEX 40960 [place] YOLA AMELIA HIPS 5 MEDICAL BILATERAL SERV 2 VIEWS FOUNDATIO ANTEROPOS N T PELVIS RADIOLOGI 67756 [place] KING AMELIA Rocha EXAM 5 MEDICAL [place] SERV C JOINTS FOUNDATIO 3/MORE N VIEWS C-REACTIV 10639 [facility] UNIVERS E PROTEIN 5 Y Y HOSPITAL HOSPITAL COLLECTIO 21087 UNIVERS UNIVERS N VENOUS 5 Y Y BLOOD [facility] VENIPUNCT URE GAUZE A6266 ADVANCED ADVANCED IMPREG 5 TISSUE TISSUE NOT H2O MANAGEMEN MANAGEMEN SALINE/ZI T T NC PASTE LINR YD HYDROGEL A6248 ADVANCED ADVANCED DRESSING 5 TISSUE TISSUE WOUND MANAGEMEN MANAGEMEN FILLER T T GEL PER FL OZ GAUZE A6402 ADVANCED ADVANCED NON-IMPRE 5 TISSUE TISSUE G STERL MANAGEMEN MANAGEMEN 16 SQ/< T T W/O ADHES BORDR TAPE A4450 ADVANCED ADVANCED NON-WATER 5 TISSUE TISSUE PROOF PER MANAGEMEN MANAGEMEN 18 T T SQUARE INCHES RADEX ABD 69272 [facility] [place] COMPL 5 RADIOLOGY RHO AQT ABD W/S/E/D [address] [place] [address] [facility] [place] HEAD/BRAI 5 RADIOLOGY RHO N W/O CONTRAST MATERIAL TAPE A4450 ADVANCED ADVANCED NON-WATER 5 TISSUE TISSUE PROOF PER MANAGEMEN MANAGEMEN 18 T T SQUARE INCHES GAUZE A6402 ADVANCED ADVANCED NON-IMPRE 5 TISSUE TISSUE G STERL MANAGEMEN MANAGEMEN 16 SQ/< T T W/O ADHES BORDR HYDROGEL A6248 ADVANCED ADVANCED DRESSING 5 TISSUE TISSUE WOUND MANAGEMEN MANAGEMEN FILLER T T GEL PER FL OZ GAUZE A6266 ADVANCED ADVANCED IMPREG 5 TISSUE TISSUE NOT H2O MANAGEMEN MANAGEMEN SALINE/ZI T T NC PASTE LINR YD THERAPEUT 50195 ELENA PARKER IC 4 [facility] TIC/DX INJECTION SUBQ/IM PUNCTURE 11732 [facility] ASPIRATIO ZOILA ANNETTE N ABSCESS EMERGENCY HEMATOMA PHYS BULLA/CYS T CUL BACT 14022 ELENA PARKER XCPT 4 [facility] BLOOD/STO OL AEROBIC ISOL INJECTION J1885 ELENA CATALAN [address] [place] [address] EQUIPMEN TROMETHAM INE PER 15 MG RADEX 21828 [facility] FOOT 4 [facility] MINIMUM 3 VIEWS DRUG 86513 ANGELA MILLER SCREEN 4 [facility], QUANTITAT [employer] KELSEY NORTRIPTY LINE RADIOLOGI 13511 [facility] C 4 EIDER KAMERON EXAMINATI RADIOLOGY ON PELVIS ASSOCIAT 1/2 VIEWS RHEUMATOI 50247 ARREDONDO ARREDONDO D FACTOR 4 CO [facility] KELSEY DRUG 79932 ANGELA MILLER SCREEN 4 [facility], [facility]ANT[facility]AT [employer] [facility] KELSEY IMIPRAMIN E SEDIMENTA 02136 MARIA ELENA ARREDONDO TION RATE 4 CO [facility] NON-AUTOM ATED BLOOD 73792 MARIA ELENA ARREDONDO COUNT 4 CO [facility] AUTO&AUTO DIFRNTL WBC IMMUNOASS 55099 [facility] AY 4 [facility], A[facility]LYTE [facility] LLC QUAL/SEMI QUAL MULTIPLE STEP TENS E0720 [place] PAIN [place] PAIN DEVICE 4 CARE & CARE & TWO LEAD BLUEJ[facility] [place] LOCALIZED HIG HIG STIMULATI ON MOLECULAR 93807 ANGELA MILLER 4 [facility], PATHOLOGY [facility] PROCEDURE LEVEL 2 NEEDLE 96153 SONYA DOVER EMG EA 4 PAIN CARE ANNETTE EXTREMTY & W/PARASPI BLUE[facility]RA NL AREA COMPLETE NERVE 14488 SONYA DOVER CONDUCTIO 4 PAIN CARE ANNETTE N STUDIES & 13/> [facility]UE[facility] STUDIES LUMB L0627 [place] PAIN ORTHOSIS 4 CARE & CARE & SAGIT [facility]ASS BLUEJAMES CNTRL HIG HIG RIGID A&P PANEL PREFAB THERAPEUT 26763 JENNY ALVARADO IC 4 [facility] PROPHYLAC MEDICAL MEDICAL TIC/DX CENTE CENTE INJECTION SUBQ/IM CORTISOL 94180 JENNY ALVARADO TOTAL 4 [facility] [place] [address] JENNY ALVARADO THYROID 4 [facility] STIMULATI MEDICAL MEDICAL NG CENTE CENTE HORMONE TSH SPECIAL 48609 TANOUS, TANOUS, STAIN 4 JR EDW JR EDW GROUP 1 MICROORGA NISMS I&R SPCL STN 43163 TANOUS, TANOUS, 2 I&R 4 JR EDW JR EDW EXCPT MICROORG/ ENZYME/IM CYT ANES 84860 BA GAV BA GAV UPPER GI 4 ENDOSCOPY PROXIMAL TO DUODENUM COLONOSCO 65591 EMILIA NIETO PY FLX DX 4 GRE GRE W/[place] [address] TANOUS, TANOUS, SURG 4 JR EDW JR EDW PATHOLOGY GROSS&DARRELL ROSCOPIC EXAM EGD 02260 EMILIA NIETO TRANSORAL 4 GRE GRE BIOPSY SINGLE/MU LTIPLE ECG 11072 BAUM LEL BAUM LEL ROUTINE 4 ECG W/LEAST 12 LDS I&R ONLY AMB A0427 GERRY GERRY SERVICE 4 FAYETTE FAYETTE ALS [facility] U[facility]AN EMERGENCY COGOVT COGOVT TRANSPORT LEVEL 1 ECG 39427 CENTRAL CENTRAL ROUTINE 4 RELIGION RELIGION ECG HOSP HOSP W/LEAST 12 LDS TRCG ONLY W/O I&R GROUND A0425 GERRY GERRY MILEAGE 4 FAYETTE FAYETTE PER URBAN URBAN STATUTE COGOVT COGOVT MILE TECHNETIU A9537 JENNY Dawkins TC-99M 4 [facility] MEDICAL N DX UP CENTE CENTE TO 15 MCI BLOOD 99699 JENNY ALVARADO COUNT 4 [facility] COMPLETE MEDICAL MEDICAL AUTO&AUTO [facility] DIFRNTL WBC HPYLORI 33440 JENNY ALVARADO BREATH 4 [facility] ANAL MEDICAL MEDICAL UREASE [facility] [place] [address] JENNY ALVARADO LIPASE 4 [facility] MEDICAL [facility] HEPATOBIL 51813 HAJIBRAHI HAJIBRAHI SYST 4 M ZAFAR M ZAFAR IMAG INC GB W/PHARMA INTERVENJ INJECTION J2805 JENNY ALVARADO 4 [facility] SINCALIDE MEDICAL MEDICAL 5 CENTE CENTE MICROGRAM S COMPREHEN 32679 JENNY ALVARADO SIVE 4 [facility] METABOLIC MEDICAL MEDICAL PANEL ZAK CRESPO COLLECTIO 12018 JENNY ALVARADO N VENOUS 4 REGIONAL REGIONAL BLOOD MEDICAL MEDICAL VENIPUNCT ZAK CRESPO URE FLUOR 29418 [facility] NEEDLE/CA 4 PAIN CARE PAIN CARE TH & & SPINE/PAR BLUE[facility]RA BL[facility]GRA ASPINAL DX/[place] 58845 [place] BR[place] DX/THER 4 PAIN CARE IRWIN SBST & EPIDURAL/ BLUEGRA SUBARACH LUMBAR/SA CRAL INJECTION J1100 [place] BRITNEY 4 PAIN CARE IRWIN DEXAMETHO & SONE [facility] SODIUM PHOSPHATE 1 MG RADEX 80451 JENNY ALVARADO UPPER GI 4 REGIONAL REGIONAL W/WO MEDICAL MEDICAL GLUCAGON/ ZAK CRESPO [place] [address] [facility] LINCOLN ABDOMINAL 4 ZEYNEP ZEYNEP REAL TIME W/IMAGE LIMITED PH BODY 08509 [place] FLUID NOT 4 PAIN CARE ANNETTE & ELSEWHERE [facility] SPECIFIED NDL EMG 2 37116 [facility] XTR W/WO 4 PAIN CARE PAIN CARE RELATED & & PARASPINA BLUEGRA BLUEGRA L AREAS PH BODY 53491 [place] FLUID NOT 4 PAIN CARE ANNETTE & ELSEWHERE [facility] SPECIFIED SPECTROPH 32093 [place] ENA BRA OTOMETRY 4 PAIN CARE ANALYT & NOT BLUEGRA ELSEWHERE SPECIFIED MRI LOWER 51952 [facility] YE[facility] TRA EXTREM 4 [place] OTH/THN ORTHOPAED JT W/O ICS PLC CONTR MATRL RADEX 33083 [facility] YE[facility] TRA FOOT 3 [place] COMPLETE ORTHOPAED MINIMUM 3 ICS PLC VIEWS SHORT-LAT 21414 [facility] ENCY 3 PAIN CARE PAIN CARE SOMATOSEN & & S EP STD BLUEGRA BLUEGRA LWR LIMBS RADEX 84960 [facility] SPINE 3 EIDER KAMERON THORACOLU RADIOLOGY MBAR ASSOCIAT JUNCTION MIN 2 VIEWS RADEX 35817 MHC INC, MHC INC, SPINE 3 LEGAL REFEREE LEGAL REFEREE CERVICAL JESUS JESUS 2 OR 3 CO HOS CO HOS VIEWS MRI 15558 SONYA DOVER SPINAL 3 PAIN CARE ANNETTE CANAL & LUMBAR BLUEGRA W/O CONTRAST MATERIAL PH BODY 42657 SONYA GILBERT FLUID NOT 3 PAIN CARE ANNETTE & ELSEWHERE BLUE[facility]RA SPECIFIED CREATININ 37103 SONYA GILBERT E OTHER 3 PAIN CARE ANNETTE SOURCE & BLUEGRA URNLS DIP 75233 SONYA GILBERT 3 PAIN CARE ANNETTE STICK/TAB & LET RGNT BLUEGRA AUTO W/O MICROSCOP Y SPECTROPH 46564 SONYA GILBERT OTOMETRY 3 PAIN CARE ANNETTE ANALYT & NOT BLUEGRA ELSEWHERE SPECIFIED CRTCHS E0114 [facility] UNDARM 3 OTH THAN WOOD PAIR PAD TIP&HNDGR IP RADEX 05493 SONYA TOÑO FOOT 3 MEDICAL KRYS COMPLETE IMAGING MINIMUM 3 ASS VIEWS URNLS DIP 94160 SONYA HATCHBERT 3 PAIN CARE ANNETTE STICK/TAB & LET RGNT BLUEGRA AUTO W/O MICROSCOP Y CREATININ 15654 SONYA GILBERT E OTHER 3 PAIN CARE ANNETTE SOURCE & BLUEGRA PH BODY 14449 SONYA GILBERT FLUID NOT 3 PAIN CARE ANNETTE & ELSEWHERE BLUEGRA SPECIFIED SPECTROPH 98394 SONYA DOVER OTOMETRY 3 PAIN CARE ANNETTE ANALYT & NOT BLUEGRA ELSEWHERE SPECIFIED CANE INCL E0100 [facility] CANES 3 ALL MATERIAL ADJUSTBLE /FIX W/TIP NEEDLE 67901 ARACELI STILES AMELIA EMG EA 3 N EXTREMTY NEUROLOGY W/PARASPI NL AREA COMPLETE THERAPEUT 00929 [email or web address], [email or web address], IC PX 1/> 3 LEGAL REFEREE LEGAL REFEREE AREAS JESUS JESUS EACH 15 CO HOS CO HOS MIN EXERCISES THERAPEUT 89665 [email or web address], [email or web address], IC PX 1/> 3 LEGAL REFEREE LEGAL REFEREE AREAS JESUS JESUS EACH 15 CO HOS CO HOS MIN EXERCISES WALKER E0143 [facility] FOLDING 3 WHEELED ADJUSTABL [place] [address] [email or web address], [email or web address], 1/> AREAS 3 LEGAL REFEREE LEGAL REFEREE EA 15 JESUS JESUS MIN GAIT CO HOS CO HOS TRAINJ W/STAIR MRI 64822 [facility] [place] [facility] SPINAL 3 NOSTICS CANAL INC THORACIC W/[place] [address] [facility], [employer], 1/> AREAS 3 LEGAL REFEREE LEGAL REFEREE EA 15 JESUS CORDOVAS MIN GAIT CO HOS CO HOS TRAINJ W/STAIR THERAPEUT 77630 [employer], [employer], IC PX 1/> 3 LEGAL REFEREE LEGAL REFEREE AREAS JESUS LEE EACH 15 CO HOS CO HOS MIN EXERCISES THERAPEUT 28218 [employer], [employer], IC PX 1/> 3 LEGAL REFEREE LEGAL REFEREE AREAS JESUS CORDOVAS EACH 15 CO HOS CO HOS MIN EXERCISES CUL BACT 34930 [facility] AEROBIC 3 OF AMERIC ADDL TORI HOLDING METHS HOLDINGS DEFINITIV E EA ISOL CULTURE 94825 [facility] BACTERIAL 3 OF AMERIC TORI HOLDING QUANTTATI HOLDINGS VE COLONY COUNT URINE CULTURE 29223 [facility] BCT 3 OF AMERIC ISOL&PRSM TORI HOLDING PTV ID HOLDINGS ISOLATE EA URINE SUSCEPTIB 70529 [facility] LTY STDY 3 OF AMERIC ANTIMICRB TORI HOLDING IAL HOLDINGS MICRO/AGA R DILUTJ THERAPEUT 30025 [employer], [employer], IC PX 1/> 3 LEGAL REFEREE LEGAL REFEREE AREAS JESUS LEE EACH 15 CO HOS CO HOS MIN EXERCISES THERAPEUT 09927 [employer], [employer], IC PX 1/> 3 LEGAL REFEREE LEGAL REFEREE AREAS JESUS LEE EACH 15 CO HOS CO HOS MIN EXERCISES PHYSICAL 15434 [employer], THERAPY 3 LEGAL REFEREE LEGAL REFEREE EVALUATIO JESUS LEE N CO HOS CO HOS APPLICATI 93.54 Fifi ON OF Malinda SANTIAGO SPLINT Encounters Encounter Start End Date Code Location Performer Type Date [facility] [address] [facility] - 7 7 [facility] [place] [facility] 10814 [facility]STA ERVIN T VISIT ,PSC 25 MINUTES OFFICE 28983 DENNIS DENNIS OUTPATIEN 7 7 Brianna ERVIN VISIT ,PSC 25 MINUTES OFFICE 15549 [facility] OUTPATIEN 7 7 CLINIC T VISIT 15 MINUTES HOSPITAL RELIGION - 7 7 HEALTH OUTPATIEN FROST T OFFICE 23721 [facility] RIANALER OUTPATIEN 7 7 SURGICAL T NEW 45 ASSOCIATE MINUTES S OFFICE 57675 [facility] CORTES- OUTPATIEN 7 7 CLINIC SE T VISIT 15 MINUTES OFFICE 57348 [facility] CORTES- OUTPATIEN 7 7 CLINIC SE T VISIT 15 MINUTES OFFICE 61752 SONNY CARDENAS OUTPATIEN 7 7 Brianna ERVIN VISIT ,PSC 25 MINUTES HOSPITAL RELIGION - 7 7 HEALTH OUTPATIEN [facility] OFFICE 29774 RELIGION LOOMIS OUTPATIEN 7 7 HEALTH T VISIT MEDICAL 40 GROUP MINUTES OFFICE 51296 DENNIS DENNIS OUTPATIEN 6 6 Brianna ERVIN MD,PSC 25 MINUTES OFFICE 14183 DENNIS DENNIS OUTPATIEN 6 6 JOSELIN ERVIN VISIT ,PSC 25 MINUTES OFFICE 65685 [facility] CORTES- OUTPATIEN 6 6 CLINIC SE NATHANIEL T VISIT 15 MINUTES OFFICE 96863 [place] FITZGERAL OUTPATIEN 6 6 PAIN CARE D DARRELL T VISIT & 15 BLUE[facility]RA MINUTES EMERGENCY 78748 ELENA 5 5 [facility] T VISIT MODERATE SEVERITY [facility] 43847 [facility] 5 5 ZOILA DIANA [facility] EMERGENCY T VISIT PHYS HIGH/URGE NT SEVERITY OFFICE 34745 [place] DO AN OUTPATIEN 5 5 PAIN CARE T VISIT & 15 BLUE[facility]RA MINUTES EMERGENCY 14733 [facility] 5 5 ZOILA MUH [facility] EMERGENCY T VISIT PHYS HIGH/URGE NT SEVERITY OFFICE 98629 [facility] MELO OUTPATIEN 5 5 CLINIC T VISIT 10 MINUTES [facility] T OFF[facility] 33288 [facility] MELO OUTPATIEN 5 5 CLINIC T VISIT 15 MINUTES OFFICE 64653 [place] PAIN OZUMBA OUTPATIEN 5 5 CARE & ANDREW T VISIT [facility] 15 HIG MINUTES OFFICE 75932 HASMUKH CORTES- OUTPATIEN 5 5 CLINIC SE NATHANIEL T VISIT 15 MINUTES OFFICE 86824 [place] PAIN OZUMBA OUTPATIEN 5 5 CARE & ANDREW T VISIT [facility] 15 HIG MINUTES OFFICE 73661 SONYA FIELDLIS OUTPATIEN 5 5 PAIN CARE DEM T VISIT & 15 BLUEGRA MINUTES OFFICE 16714 [place] PAIN DANGARIA OUTPATIEN 5 5 CARE & BLAKE T VISIT [facility] 15 HIG MINUTES OFFICE 83390 CHAMBERLA CHAMBERLA OUTPATIEN 5 5 IN [facility] T VISIT 5 PLLC MINUTES HOSPITAL JOSE - 5 5 MEM HOSP OUTPATIEN INC T PERIODIC 91090 CHAMBERLA CHAMBERLA PREVENTIV 5 5 IN [facility] E MED EST [facility] PATIENT 18-39 YRS OFFICE 88862 [place] PAIN DANGARIA OUTPATIEN 5 5 CARE & BLAKE T VISIT [facility] 15 HIG MINUTES HOSPITAL JOSE - 5 5 MEM [facility] OUTPATIEN INC T OFFICE 70122 [place] PAIN DANGARIA OUTPATIEN 5 5 CARE & BLAKE T VISIT [facility] 15 HIG MINUTES OFFICE 88982 [facility] OUTPATIEN 5 5 T VISIT 15 MINUTES HOSPITAL UNIVERSIT - 5 5 Y [facility] T OFFICE 24143 [facility] JAZZ CONSULTAT 5 5 NURSE SANTINO NAM NEW/ESTAB NER GR PATIENT 80 MIN OFFICE 47070 [facility] OUTPATIEN 5 5 T VISIT 15 MINUTES EMERGENCY 48040 [facility] DEPT 5 5 [facility]IL[facility] MUH VISIT EMERGENCY HIGH PHYS SEVERITY& THREAT FUNCJ OFFICE 67151 [facility] PETTY KAMERON OUTPATIEN 5 5 CLINIC T VISIT 15 MINUTES OFFICE 39630 [facility] OUTPATIEN 5 5 T VISIT 15 MINUTES OFFICE 17122 [facility] OUTPATIEN 5 5 T NEW 30 MINUTES OFFICE 14832 [facility] PETTY KAMERON OUTPATIEN 5 5 CLINIC T VISIT 15 MINUTES OFFICE 84553 [facility] PETTY KAMERON OUTPATIEN 4 4 CLINIC T VISIT 15 MINUTES EMERGENCY 85096 [facility] T VISIT HIGH/URGE NT SEVERITY HOSPITAL BOIGGYON - 4 4 [facility] [place] [facility] 03249 [facility] CARTER JAM 4 4 [facility] EM[facility]GENC[facility] T VISIT PHYS HIGH/URGE NT SEVERITY [facility]OSPITAL [facility] - OTHER [facility] 4 [facility] 84697 [facility] 4 4 [facility] T VISIT MODERATE SEVERITY OFFICE 68607 [place] EL[place] OUTPATIEN 4 4 CARE & LUCIA T VISIT [facility] 15 HIG MINUTES OFFICE 70685 RELIGION TIKHT[facility] OUTPATIEN 4 4 NEUROLOGY AMY T VISIT 25 CONSULTAN MINUTES T OFFICE 63997 [place] OUTPATIEN 4 4 CARE & [facility]IA T [facility]ISIT [facility] 15 HIG MINUTES OFFICE 26889 JC GREENE CONSULTAT 4 4 AMY AMY ION NEW/ESTAB PATIENT 80 MIN OFFICE 97195 SONYA LOPEZR OUTPATIEN 4 4 PAIN CARE IRWIN T VISIT & 25 [facility] MIN[facility] HOSPITAL JENNY - 4 4 REGIONAL OUTPATIEN MEDICAL T CENTE OFFICE 79991 EMILIA NIETO OUTPATIEN 4 4 GRE GRE T VISIT 25 MINUTES OFFICE 57895 SONYA DOVER OUTPATIEN 4 4 PAIN CARE ANNETTE T VISIT & 15 [facility] MINUTES EMERGENCY 77374 [facility] 4 4 [facility] DEPARTMEN EMERGENCY T VISIT PHYSI HIGH/URGE NT SEVERITY EMERGENCY 17393 [facility] 4 4 RELIGION DEPARTMEN HOSP T VISIT HIGH/URGE NT SEVERITY HOSPITAL [facility] - 4 4 RELIGION OUTPATIEN HOSP T OFFICE 68213 SONYA GIFFORDLIFF OUTPATIEN 4 4 PAIN CARE LUCIA T VISIT & 15 [facility] MINUTES OFFICE 66982 LAINE JANG OUTPATIEN 4 4 MIAH MIAH T VISIT 25 MINUTES HOSPITAL JENNY - 4 4 REGIONAL OUTPATIEN MEDICAL T CENTE OFFICE 05470 SONYA GIFFORDLIFF OUTPATIEN 4 4 PAIN CARE LUCIA T VISIT & 25 [facility] MINUTES HOSPITAL JENNY - 4 4 REGIONAL OUTPATIEN MEDICAL T CENTE OFFICE 17206 JENNY JANG CONSULTAT 4 4 REGIONAL MIAH ION PHYSICIAN NEW/ESTAB PRA PATIENT 60 MIN HOSPITAL [facility], - 4 4 LEGAL REFEREE OUTPATIEN [facility] OFFICE 98013 SONYA DOVER OUTPATIEN 4 4 PAIN CARE ANNETTE T VISIT & 25 [facility] MINUTES OFFICE 01866 SONYA BREAUX OUTPATIEN 4 4 PAIN CARE T VISIT & 25 [facility] MINUTES OFFICE 58038 SONYA DOVER OUTPATIEN 4 4 PAIN CARE ANNETTE T VISIT & 25 [facility] MINUTES OFFICE 78879 [facility] OUTPATIEN 4 4 [place] T VISIT ORTHOPAED 15 I[facility] PLC MINUTES OFFICE 16625 SONYA DOVER OUTPATIEN 4 4 PAIN CARE ANNETTE T VISIT & 25 [facility] MINUTES OFFICE 53156 [facility] OUTPATIEN 4 4 [place] T VISIT ORTHOPAED 15 [facility] MINUTES OFFICE 84419 YEH TRA YEH TRA OUTPATIEN 4 4 T VISIT 15 MINUTES OFFICE 47777 SOYNA DOVER OUTPATIEN 4 4 PAIN CARE ANNETTE T VISIT & 15 [facility] MINUTES OFFICE 36517 [facility] TRA CONSULTAT 3 3 [place] ION ORTHOPAED NEW/ESTAB ICS PLC PATIENT 60 MIN [facility], - 3 3 LEGAL REFEREE OUTPATIEN [facility] OFFICE 30747 SONYA DOVER OUTPATIEN 3 3 PAIN CARE ANNETTE T VISIT & 15 [facility] MINUTES Emergency EVA Aviles MD (ER) 3 15:53 3 16:53 [facility] EMERGENCY 07737 BRUNO QUINTANILLA 3 3 EMERGENCY DEPARTMEN SERVICES T VISIT HIGH/URGE NT SEVERITY OFFICE 84137 SONYA DOVER OUTPATIEN 3 3 PAIN CARE ANNETTE T NEW 30 & MINUTES [facility] OFFICE 65052 [facility] BEATTY OUTPATIMINA 3 3 CLINIC HEN T VISIT 15 MINUTES HOSPITAL [facility] - 3 3 LEGAL REFEREE OUTPATIEN [facility] - 3 3 LEGAL REFEREE OUTPATIEN [facility] - 3 3 LEGAL REFEREE OUTPATIEN [facility] OFFICE 87256 ARACELI CISNEROS OUTPATIEN 3 3 N T VISIT NEUROLOGY 25 MINUTES [facility] - 3 3 LEGAL REFEREE OUTPATIEN [facility] - 3 3 LEGAL REFEREE [facility]PATIEN [facility], - 3 3 LEGAL REFEREE OUTPATIEN [facility] OFFICE 26822 ARACELI CISNEROS OUTPATIEN 3 3 N T NEW 45 NEUROLOGY MINUTES [facility]OSPITAL [facility] - 3 3 LEGAL REFEREE OUTPATIEN [facility] - 3 3 LEGAL REFEREE OUTPATIEN [facility]
--- OUTSIDE RECORDS SUMMARY | 2017-05-22 19:27 | External Medical Summary Rpt | CCD ---
Author Author , ROSE Organization ROSE Address Unknown Phone Care Team Providers Care Health Administrator Name Role Phone [facility], [facility] Unavailable Unavailable [facility] Unavailable Unavailable MANAGEMENT, [facility] MANAG[facility] Unavailable Unavailable MANAGEMENT, [facility] MANAGEMENT ALMES ALMLIZZ Unavailable Unavailable BAKAITLIN BAKAITLIN Unavailable Unavailable DENNISPABLO VALADEZARD Unavailable Unavailable DENNIS KAT, DENNIS Unavailable Unavailable JOSELIN ERVIN, Unavailable Unavailable ,PSC, SONNY ERVIN MD,PSC [facility] Unavailable Unavailable [facility], [facility] Unavailable Unavailable MEDICAL GROUP, [facility] Unavailable Unavailable INTERNATIONAL MARKETING EXECUTIVE, [facility] INTERNATIONAL MARKETING EXECUTIVE [facility] Unavailable Unavailable CTR, [facility] Unavailable Unavailable CTR, [facility] LAINE MIAH, LAINE Unavailable Unavailable MIAH LAINE MIAH, LAINE Unavailable Unavailable MIAH KEERTHI ANGULO Unavailable Unavailable ANNETTE [facility], Unavailable Unavailable INC, [facility], Unavailable Unavailable INC, [facility] PETTY KAMERON, PETTY KAMERON Unavailable Unavailable [facility] Unavailable Unavailable [facility] SHELLIE, Unavailable Unavailable SHELLIE ARMSTRONG, Unavailable Unavailable [facility], Unavailable Unavailable [facility], Unavailable Unavailable [facility] Unavailable Unavailable [facility], [facility] Unavailable Unavailable [facility] Unavailable Unavailable ASSOC, [facility], Unavailable Unavailable [facility] Un[facility], [facility] Unavailable Unavailable [facility], JENNY [facility] Unavailable Unavailable PHYSICIAN PRA, JENNY [facility] PHYSICIAN PRA [facility], Unavailable Unavailable [facility] TOÑO KRYS, Unavailable Unavailable TOÑO KRYS DANGARIA BLAKE, Unavailable Unavailable DANGARIA BLAKE LOOMIS, LOOMIS Unavailable Unavailable ENA BRA, ENA BRA Unavailable Unavailable DESKINS DIANA, DESKINS Unavailable Unavailable DIANA DO AN, DO AN Unavailable Unavailable [facility], [facility] Unavailable Unavailable CARTER JAM, CARTER JAM Unavailable Unavailable [facility], Unavailable Unavailable [facility], Unavailable Unavailable [facility] LÓPEZ, LÓPEZ Unavailable Unavailable [facility], Unavailable Unavailable [facility] GILBERT ANNETTE, GILBERT Unavailable Unavailable ANNETTE [...] MEDICAL [facility]QUIPMEN BELIA III NICHOLAS, Unavailable Unavailable BLEIA III NICHOLAS [facility] Un[facility] Unavailable [facility], [facility] & Unavailable Unavailable [facility], [facility] Fifi Aviles MD, Unavailable Unavailable Fifi CISNEROS, KING AMELIA Unavailable Unavailable [facility] Un[facility] Unavailable Unavailable [facility], [facility] Unavailable Unavailable [...] Unavailable Unavailable COGOVT, GERRY FAYETTE URBAN COGOVT [facility] Unavailable Unavailable SERVICES, [facility] Unavailable Unavailable ASSOCIAT, [facility], SCREENING TECHNICIAN [facility] Unavailable Unavailable [facility], [facility], SCREENING TECHNICIAN [facility], Unavailable Unavailable LLC, [employer], [facility], Unavailable Unavailable LLC, [employer], [facility], Unavailable Unavailable [facility] [place] [...] ANNETTE SARLIS DEM, SARLIS Unavailable Unavailable DEM [facility] Unavailable Unavailable EMERGENCY PHYS, [facility] Unavailable Unavailable EMERGENCY PHYSI, [facility]available Unavailable CENTER, [facility] Unavailable Unavailable CENTER, [facility] AUGUSTA TANOUS, JR EDW, Unavailable Unavailable TANOUS, JR EDW TANNELLY, JR EDW, Unavailable Unavailable TANOUS, JR EDW TIKHTMAN AMY, Unavailable Unavailable TIKHTMAN AMY [facility] Unavailable Unavailable ASSOCIATES, [facility], Unavailable Unavailable [facility] WAFFORD SANTINO, WAFFORD Unavailable Unavailable SANTINO MALINDA QUINTANILLA, MALINDA QUINTANILLA Unavailable Unavailable STACIE, Unavailable Unavailable STACIE BRITNEY IRWIN, BRITNEY Unavailable Unavailable IRWIN Purpose Continuity of Care Document - 12-01-2012 through 2016 Problems Code Diagnosis DOS Provider Status K208 OTHER 03-09-2017 [facility] ESOPH[facility] PHYS SURG CTR R1013 EPIGASTRIC 03-09-2017 [facility] [place] PAIN ANESTHESIA U0783HV SPRAIN 02-19-2017 [facility] UNSPECIFIED [facility]ACING, SITE LT INC KNEE INITIAL ENCNTR M25.562 PAIN IN 02-11-2017 LEFT KNEE H93173 PAIN IN 02-10-2017 [facility] M2392 UNSPECIFIED 02-05-2017 [facility] INTERNAL BRACING, DERANGEMENT INC OF LEFT KNEE R92.8 OTHER 01-20-2017 ABNORMAL AND INCONCLUSIV E FINDINGS ON DIAGNOSTIC IMAGING OF BREAST R928 OTH ABNORM 01-19-2017 [facility] E FIND ON DX IMAG BREAST F45.8 OTHER 01-07-2017 [facility] DISORDERS Z12.31 ENCOUNTER 01-07-2017 FOR SCREENING MAMMOGRAM FOR MALIGNANT NEOPLASM OF BREAST K219 GASTRO-ESOP 01-06-2017 [facility] [place] [facility] RE[facility]UX RADIOLOGY DISEASE WITHOUT ESOPHAGITIS B75182 PAIN IN 01-06-2017 [facility] [place] LEFT HIP RADIOLOGY M545 LOW BACK 01-06-2017 [facility] [place] PAIN RADIOLOG[facility] U41054 SPONDYLOSIS 2017 SONNY W/O ARCADIO, MYELOPATH/R ,PSC ADICULOPATH Y LUMB RGN 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 USE ARCADIO OF OPIATE ,PSC ANALGESIC J101 FLU D/T OTH 10-14-2016 [facility] ID FLU CLINIC VIRUS OTH RESP MANIFESTATI ONS K838 OTHER 09-29-2016 [facility] SPECIFIED HEALTH DISEASES OF [place] BILIARY TRACT R1010 UPPER 09-29-2016 [facility] PAIN ASSOC UNSPECIFIED R1011 RIGHT UPPER 09-23-2016 [facility] J020 STREPTOCOCC 09-18-2016 [facility] AL CLINIC PHARYNGITIS L089 LOCAL INF 09-18-2016 [facility] THE SKIN & CLINIC SUBCUTANEOU S TISSUE UNS X5567SJ ADVERSE 09-18-2016 [facility] EFFECT UNS CLINIC SYSTEMIC ABX INITIAL ENCNTR I23373 UNSPECIFIED 08-14-2016 [facility] OVARIAN HEALTH CYST LEFT MANNING SIDE R109 UNSPECIFIED 08-14-2016 [facility] PAIN ASSOC G8929 OTHER 08-08-2016 [facility] M461 SACROILIITI 01-17-[address] S NOT SURGERY ELSEWHERE CENTER CLASSIFIED M29052 UNS ACUTE 09-06-2015 [facility] NONINFECTIV CLINIC E OTITIS EXTERNA RIGHT EAR J0190 ACUTE 09-06-2015 [facility] SINUSITIS CLINIC UNSPECIFIED M5033 OTH CERV 08-06-2015 [place] DISC DEGEN PAIN CARE & CERVICOTHOR [facility] ACIC REGION M5136 OTH 08-06-2015 [place] INTERVERTEB PAIN CARE & RAL DISC [facility] DEGEN LUMBAR REGION M542 CERVICALGIA 08-06-2015 [place] [facility] & [facility] N96846 PAIN IN 06-18-2015 [facility] [place] RIGHT RADIOLOGY SHOULDER S66066 PAIN IN 06-18-2015 [facility] [place] RIGHT WRIST RADIOLOGY O25447 PAIN IN 06-18-2015 [facility] [place] RIGHT KNEE RADIOLOGY R74348 PAIN IN 06-18-2015 [facility] [place] RIGHT ANKLE RADIOLOGY N86494 PAIN IN 06-18-2015 [facility] [place] RIGHT HAND RAD[facility] C75194 PAIN IN 06-18-2015 [facility] [place] RIGHT FOOT RADIOLOGY V00313J CONTUSION 06-18-2015 [facility] RIGHT N EMERGENCY SHOULDER PHYS INITIAL ENCOUNTER J69870C CONTUSION 06-18-2015 [place] UNSPECIFIED [facility] SHOULDER HOSPITAL INITIAL ENCOUNTER A95249A CONTUSION 06-18-2015 [place] [facility] UNSPECIFIED HOSPITAL WRIST INITIAL ENCOUNTER W09977A CONTUSION 06-18-2015 [facility] RIGHT N EMERGENCY HAND PHYS INITIAL ENCOUNTER G63410K CONTUSION 06-18-2015 [place] [facility] UNSPECIFIED HOSPITAL HAND INITIAL ENCOUNTER R8807NZ CONTUSION 06-18-2015 [facility] [facility] UNSPECIFIED HOSPITAL KNEE INITIAL ENCOUNTER O8465DI CONTUSION 06-18-2015 [facility] RIGHT N EMERGENCY KNEE PHYS INITIAL ENCOUNTER O0232TL CONTUSION 06-18-2015 [facility] [facility] UNSPECIFIED HOSPITAL ANKLE INITIAL ENCOUNTER T5469NC CONTUSION 06-18-2015 [facility] OF RIGHT N EMERGENCY ANKLE PHYS INITIAL ENCOUNTER Q1680WP CONTUSION 06-18-2015 [facility] [facility] UNSPECIFIED HOSPITAL FOOT INITIAL ENCOUNTER U71VVIT UNSPECIFIED 06-18-2015 [facility] [place] N EMERGENCY INITIAL PHYS ENCOUNTER G894 CHRONIC 06-11-2015 [place] PAIN PAIN CARE & SYNDROME [facility] J189 PNEUMONIA 05-31-2015 [facility] UNSPECIFIED N EMERGENCY ORGANISM PHYS R05 COUGH 05-31-2015 [facility] N EMERGENCY PHYS Z09 ENC F/U 05-30-2015 [facility] EXAM AFTR CLINIC CMPL TX OTH THAN MALIG NEOPLSM R0602 SHORTNESS 05-28-2015 [facility] OF BREATH CLINIC R062 WHEEZING 05-28-2015 [facility] 90997 DISPLCMT 04-17-2015 [place] PA[place] LUMBAR CARE & INTERVERT [facility] DISC W/O HIG MYELOPATHY 25421 DEGEN 04-17-2015 [place] PA[place] LUMBAR/LUMB CARE & OSACRAL [facility] INTERVERTEB HIG RAL DISC 7244 THORACIC/SUDHA 04-17-2015 [place] PAIN MBOSACRAL CARE & NEURITIS/RA [facility] DICULITIS HIG UNSPEC 7248 OTHER 04-17-2015 [place] PAIN SYMPTOMS CARE & REFERABLE [facility] TO BACK HIG 4619 ACUTE 04-13-2015 [facility] SINUSITIS, CLINIC UNSPECIFIED 53268 OTHER 04-13-2015 [facility] MALAISE AND CLINIC FATIGUE 17600 PALLOR 04-13-2015 [facility] 69002 PAINFUL 04-13-2015 [facility] RESPIRATION [facility]IN[facility] 34011 UNSPECIFIED 02-26-2015 [place] PAIN CARE & ARTHROPATHY [facility] PELVIC HIG REGION AND THIGH 7202 SACROILIITI 02-26-2015 [place] PAIN S NOT CARE & ELSEWHERE [facility] CLASSIFIED HIG 7242 LUMBAGO 02-26-2015 [place] PAIN [facility]ARE & [facility] HIG 11378 OTHER 01-23-2015 [facility] PAIN V7109 OBSERVATION 01-23-2015 [facility] OTHER Health Integrated SUSPECTED MENTAL CONDITION V5869 LONG-TERM 11-28-2014 [facility] (CURRENT) TORI USE OF HOLDINGS OTHER MEDICATIONS 6202 OTHER AND 11-24-2014 [facility] UNSPECIFIED CLINIC OVARIAN PLLC CYST 48231 DEGEN 11-24-2014 [facility] THORACIC/TH [facility] ORACOLUMBAR INC INTERVERTEB RAL DISC 7241 PAIN IN 11-24-2014 [facility]ORAC[facility] SPINE INC 27571 SPASM OF 11-24-2014 [facility]CLE [facility] INC 48153 ABDOMINAL 11-24-2014 [facility] PAIN, LEFT CLINIC LOWER PLLC QUADRANT V571 OTHER 11-24-2014 [facility] PHYSICAL [facility] THERAPY INC 6259 UNSPEC 11-22-2014 [facility] SYMPTOM CLINIC ASSOC PLLC W/FEMALE GENITAL ORGANS V7231 ROUTINE 11-21-2014 [facility], GYNECOLOGIC [facility] AL EXAMINATION 7213 LUMBOSACRAL 11-20-2014 [place] PAIN CARE & SPONDYLOSIS [facility] WITHOUT HIG MYELOPATHY 3558 UNSPECIFIED 09-25-2014 [facility] MONONEURITI S OF LOWER LIMB 89522 ULCER OF 09-25-2014 [facility] HEEL AND MIDFOOT 7092 SCAR 09-25-2014 [facility] CONDITION AND FIBROSIS OF SKIN 22756 REFLEX 09-08-[address] [facility] DYSTROPHY OF THE LOWER LIMB 27641 UNSPEC 09-08-2014 [facility]TR[facility] SERV PROTRUSION [facility]ATION ACETAB PELV RGN&THI 53398 EFFUSION OF 09-08-2014 [facility] JOINT 55989 PAIN IN 09-08-2014 [facility] LOWER LEG 7226 DEGENERATIO 09-08-2014 [facility] INTERVERTEB RAL DISC SITE UNSPEC 7291 UNSPECIFIED 09-08-2014 [facility] AND MYOSITIS 7295 PAIN IN 09-08-2014 [facility] TISSUES OF LIMB 89232 PRESSURE 09-04-2014 [facility] HEEL TISSUE MANAGEMENT 9172 FOOT&TOE 08-28-2014 [facility] BLISTER WITHOUT MENTION OF INFECTION 2768 HYPOPOTASSE 08-24-2014 [facility] MISSAEL N EMERGENCY PHYS 4580 ORTHOSTATIC 08-24-2014 [facility] N EMERGENCY HYPOTENSION PHYS 19085 UNSPECIFIED 08-24-2014 [facility] N EMERGENCY CONSTIPATIO PHYS N 7802 SYNCOPE AND 08-24-2014 [facility] [place] COLLAPSE RADIOLOGY 17588 NAUSEA WITH 08-24-2014 [facility] VOMITING [facility]INIC 7881 DYSURIA 08-24-2014 [facility] 7098 OTHER 08-02-2014 [facility] SPECIFIED CLINIC DISORDER OF SKIN V679 UNSPECIFIED 07-24-2014 [facility] FOLLOW-UP CLINIC EXAMINATION 41191 UNSPECIFIED 07-21-2014 [facility] REFLEX N EMERGENCY SYMPATHETIC PHYS DYSTROPHY 6827 CELLULITIS 07-21-2014 [facility] AND ABSCESS N EMERGENCY OF FOOT PHYS EXCEPT TOES 09555 ULCER OF 07-13-2014 [facility] OTHER PART N EMERGENCY OF FOOT PHYS 54088 OSTEOARTHRO 07-13-2014 [facility] UNSPEC RADIOLOGY GEN/LOC ASSOCIAT PELV REGION&THIG H 7243 SCIATICA 07-13-2014 [facility] 7245 UNSPECIFIED 07-13-2014 [facility] 7820 DISTURBANCE 05-02-2014 [facility] OF SKIN NEUROLOGY SENSATION INTERNATIONAL MARKETING EXECUTIVE 14883 ESOPHAGEAL 03-07-2014 [facility] REFLUX GRE 51458 REFLUX 02-09-2014 JR NEO ESOPHAGITIS EDW 34119 NAUSEA 02-09-2014 [facility] ALONE GRE 33311 VOMITING 02-09-2014 [facility] ALONE GRE 24949 ABDOMINAL 02-09-2014 [facility] GAV PAIN, UNSPECIFIED SITE 83202 DEHYDRATION 02-03-2014 [facility] N EMERGENCY PHYSI 36023 VOLUME 01-29-2014 [facility] DEPLETION [facility] UNSPECIFIED HOSP 7804 DIZZINESS 01-29-2014 [facility] GIDDINESS HOSP 11218 ABDOMINAL 01-29-2014 [facility] PAIN, [facility] EPIGASTRIC HOSP 7934 NONSPECIFIC 01-10-2014 [facility] MIAH ABN FINDING RAD & OTH EXAM GI TRACT 58688 ABDOMINAL 01-02-2014 JENNY PAIN RIGHT REGIONAL UPPER MEDICAL QUADRANT CENTE 7933 NONSPECIFIC 01-02-2014 [facility] ABN FINDNG REGIONAL RAD&OTH MEDICAL EXAM BILARY ZAK TRCT 68114 FEVER 12-13-2013 [facility] UNSPECIFIED REGIONAL PHYSICIAN PRA 5758 OTHER 11-30-2013 [facility] SPECIFIED DISORDER OF GALLBLADDER 75409 SPONDYLOSIS 11-02-2013 [place] WITH PAIN CARE & MYELOPATHY [facility] LUMBAR REGION 3559 MONONEURITI 10-03-2013 [facility] [place] S OF ORTHOPAEDIC UNSPECIFIED S PLC SITE 35619 PAIN IN 10-03-2013 [facility] [place] JOINT, ORTHOPAEDIC ANKLE AND S PLC FOOT 7224 DEGENERATIO 09-05-2013 [place] N OF PAIN CARE & CERVICAL [facility] INTERVERTEB RAL DISC 6869 UNSPEC 08-15-2013 [facility] TRA LOCAL INFECTION SKIN&SUBCUT ANEOUS TISSUE 92817 SCOLIOSIS , 07-07-2013 [facility], IDIOPATHIC SCREENING TECHNIC[place] [facility] [place] [facility] 03518 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 [facility] INC, FUSION OF SCREENING TECHNICIAN SPINE [facility] [place] [facility] 79803 SPINAL STEN 06-13-2013 [place] LUMB REG PAIN CARE & W/O [facility] NEUROGENIC CLAUDICATIO N 401.9 401.9 05-20-2013 [place] HYPERTENSIO [facility] N NOS Hospital 845.00 845.00 05-20-2013 Jose SPRAIN OF [facility] ANKLE [facility] 97572 UNSPECIFIED 05-20-2013 [place] [facility] EMERGENCY ANKLE SERVICES SPRAIN AND STRAIN E8889 UNSPECIFIED 05-20-2013 [place] [facility] E927.0 E927.0 05-20-2013 Jose OVEREXERTIO [facility] N FROM Hospital SUDDEN STRENUOUS MOVEMENT V14.8 V14.8 05-20-2013 Jose HX-DRUG [facility] ALLERGY [facility] V58.69 V58.69 OTH 05-20-2013 Jose GANDHI,LT,ESTEBAN [facility] ENT USE Hospital 3441 PARAPLEGIA 04-19-2013 [facility] 56053 OTH 01-04-2013 [facility] ETAL SX REFERABLE LIMBS OTH 11112 SWELLING OF 01-03-2013 [facility], LIMB SCREENING TECHNICIAN [facility] 7292 UNSPECIFIED 12-16-2012 NEURODIAGNO [...] 17 17 29 FA -P 2 98 VA SE LY ER UG 5- 12 0 [...] Procedure DOS Code Location Performer Comment EGD 41870 [facility] TRANSORAL 7 PHYS SURG PHYS SURG BIOPSY CTR CTR SINGLE/MU LTIPLE ANE 73391 [facility] UPPER GI 7 [place] ENDOSCOPY ANESTHESI PROXIMAL A TO DUODENUM KNEE L1812 [facility] ORTHOSIS 7 BRACING, BRACING, ELASTIC INC INC WITH JOINTS PREFAB ADD LOW L2795 [facility] EXTREM 7 BRACING, BRACING, ORTHOTIC INC INC KNEE [facility] FULL KNEECAP MRI ANY 09527 [facility] JT LOWER 7 [facility] W/O CONTRAST MATRL KO ELAST L1820 [facility] W/CONDYLR 7 BRACING, BRACING, PADS&JNT INC INC PRFAB INCL FIT&ADJ DIAGNOSTI G0206 [address] HY INCL CAD WHEN PERF; UNI RADEX 24195 [facility] [place] [facility] ESOPHAGUS 7 RADIOLOGY RADEX 53774 [facility] [place] [facility] SPINE 7 RADIOLOGY LUMBOSACR AL MINIMUM 4 VIEWS RADIOLOGI 53276 [facility] [place] [facility] C 7 RADIOLOGY EXAMINATI ON KNEE 3 VIEWS RADEX HIP 80365 [facility] [place] GALVAN 7 RADIOLOGY UNILATERA L WITH PELVIS 2-3 VIEWS COLLECTIO 30178 SONNY Cowan VENOUS 7 ARCAIDO ERVIN BLOOD MD,PSC ,[place] [address] DENNIS DENNIS GLUTAMYLT 7 HECTOR ERVIN MD,PSC GAMMA DRUG TEST 91479 DENNIS DENNIS PRSMV 7 ROSA ISELA ERVIN MD,PSC CHEMISTRY ANALYZERS COMPREHEN 42537 DENNIS DENNIS SIVE 7 MELY ERVIN MD,PSC PANEL BLOOD 33375 DENNIS DENNIS COUNT 7 BRETT ERVIN MD,PSC AUTO&AUTO DIFRNTL WBC MOD SED 60556 DENNIS DENNIS SAME 7 ARCADIO ERVIN PHYS/QMURIEL SANTIAGO,PSC MD,PSC INITIAL 15 MINS 5/> YRS DSTR [address] NROLYTC [address] [facility] CENTER FCT SNGL LMBR/SACR AL COMPREHEN 68877 [facility] SIVE 7 [facility] METABOLIC [facility] PANEL COLLECTIO 15535 [facility] N VENOUS 7 [facility] BLOOD [facility] [place] [address] [facility] ABDOMINAL [facility] REAL [facility] TIME W/[place] [address] [facility] GLUTAMYLT 7 [facility] RASE [facility] GAMMA BLOOD 44948 [facility] COUNT 7 [facility] COMPLETE [facility] AUTO&[place] [address] [facility] LIPASE 7 [facility] LOCM Q9967 [facility] [phone] [facility] MG/ML [facility] [place] [address] [facility] ABDOMEN & 7 RADIOLOGY PELVIS ASSOC W/CONTRAS T MATERIAL COLLECTIO 69902 DENNIS DENNIS N VENOUS 6 HOLLAND ERVIN MD,PSC VENIPUNCT URE COMPREHEN 15476 DENNIS DENNIS SIVE 6 MELY [place] [address] DENNIS DENNIS GLUTAMYLT 6 HECTOR ERVIN MD,PSC GAMMA BILIRUBIN 41234 DENNIS DENNIS DIRECT 6 MD ARCADIO,PSC BLOOD 65066 DENNIS DENNIS COUNT 6 BRETT ERVIN MD,PSC AUTO&[place] [address] DENNIS DENNIS PHOSPHORU 6 Modesta ERVIN MD,[facility] INORGANIC DRUG TEST G0479 DENNIS DENNIS 6 ARCADIO, PRESUMP;Azael SANTIAGO,[facility] NSTRUMENT [place]X [address] [facility] [place] DX/THER [address] AGT PVRT SURGERY SURGERY FACET JT CENTER CENTER LMBR/SAC 1 LEVEL COLLECTIO 43976 DENNIS DENNIS N VENOUS 6 JOSELIN ERVIN BLOOD ,[facility] VENIPUNCT URE COMPREHEN 73659 DENNIS DENNIS SIVE 6 JOSELIN ERVIN MD,[place] [address] DENNIS DENNIS GLUTAMYLT 6 JOSELIN ERVIN MD,[facility] GAMMA BLOOD 62022 DENNIS DENNIS COUNT 6 JOSELIN ERVIN MD,[facility] AUTO&AUTO DIFRNTL WBC DRUG TEST G0479 DENNIS DENNIS 6 JOSELIN ERVIN PRESUMP;I ,[facility] NSTRUMENT ED CHEMISTRY ANLYZER BILIRUBIN 64042 DENNIS DENNIS DIRECT 6 JOSELIN [place] MD,[place] [address] DENNIS DENNIS PHOSPHORU 6 JOSELIN ERVIN MD,[facility] INORGANIC MODERATE 48204 DENNIS [place] SEDATJ 6 RODY ERVIN SAME, MD,[facility] PHYS/QHP 5/>YRS INIT 30 MIN NJX 39393 [facility]ONE DX/THER [address] AGT PVRT SURGERY SURGERY FACET JT CENTER CENTER LMBR/SAC 1 LEVEL NJX 43422 DENNIS [place] DX/THER 6 RODY ERVIN PVRT ,PSC FACET JT LMBR/[place] 2[place] [address] DENNIS [place] JOINT 6 RODY ERVIN MD,PSC Y&/ANES/S TEROID W/PEARL INJ PROC G0260 [facility] SI [address] JNT;ANES SURGERY SURGERY STEROID&/ CENTER CENTER TX AGT&ARTHR OGRPH NONCOVERE A9270 ELENA PARKER D ITEM OR 5 [facility] RADEX 72681 [facility] [place] MARGAR[place] WRIST 5 RADIOLOGY RHO COMPLETE MINIMUM 3 VIEWS THERAPEUT 81819 ELENA LUXON IC 5 [facility] TIC/DX INJECTION SUBQ/IM RADEX 04042 [facility] [place] SHOULDER 5 RADIOLOGY RHO COMPLETE MINIMUM 2 VIEWS RADIOLOGI 11952 [facility] [place] MARG[place] C 5 RADIOLOGY RHO EXAMINATI ON KNEE 3 VIEWS RADEX 34101 [facility] [place] HAND 5 RADIOLOGY RHO MINIMUM 3 VIEWS RADEX 07732 [facility] [place] ANKLE 5 RADIOLOGY RHO COMPLETE MINIMUM 3 VIEWS RADEX 95760 [facility] [place] SPINE 5 RADIOLOGY RHO LUMBOSACR AL 2/3 VIEWS RADEX 60524 [facility] [place] FOOT 5 RADIOLOGY RHO COMPLETE MINIMUM 3 VIEWS COLLECTIO 72236 ELENA PARKER N VENOUS [address] [facility] VENIPUNCT URE COMPREHEN 88974 ELENA PARKER SIVE 5 [facility] PANEL RADIOLOGI 63188 ELENA PARKER C EXAM [address] HOSPITAL VIEWS FRONTAL&L ATERAL BLOOD 12954 ELENA PARKER COUNT 5 [facility] AUTO&AUT[place]RNTL [place] G6031 [facility] BENZODIAZ 5 [facility]IN [facility]ARE ANDREW EPINES & BLUE[facility]RA OPIATE G6056 [place] [facility] DRUG AND 5 PAIN CARE ANDREW METABOLIT & ES EACH [place]UE[place]RA PROCEDURE ASSAY OF G6044 [facility] COCAINE 5 PAIN CARE PAIN CARE OR & & METABOLIT BLUEGRA BLUEGRA E INJECTION J0696 [facility]ORT[facility]- [facility] CEFTRIAXO NE SODIUM PER 250 MG THERAPEUT 72254 [facility] CORTES- IC 5 [facility] PROPHYLAC TIC/DX INJECTION SUBQ/IM INJECTION J1100 [place] 5 CARE & CARE & DEXAMETHO [facility] SONE HIG HIG SODIUM PHOSPHATE 1 MG DRUG 63787 ANGELA MADERAIU SCREEN 5 [facility] KELSEY PHENOBARB ITAL MRI 71580 [place] SPINAL 5 CARE & III NICHOLAS CANAL [facility] LUMBAR HIG W/O CONTRAST MATERIAL ASSAY OF G6044 [place] COCAINE 5 CARE & CARE & OR [facility] BL[facility] METABOLIT HIG HIG E ASSAY OF G6036 ANGELA MADERAIU IMIPRAMIN 5 [facility] ALKALOIDS G6041 ANGELA MADERAIU URINE 5 [facility] KELSEY IMMUNOASS 14613 ANGELA MADERAIU AY 5 [facility], ANALYTE [facility] LLC QUAL/SEMI QUAL MULTIPLE STEP ASSAY OF G6030 ANGELA GARZAU AMITRIPTY 5 [facility] ASSAY OF G6032 ANGELA GARZAU DESIPRAMI 5 [facility] NE [facility] ASSAY OF G6037 ANGELA MADERAIU NORTRIPTY 5 [facility] LLC THERAPEUT 93020 JOSE GARCIA IC PX 1/> 5 [facility] EACH 15 MIN EXERCISES APPL 69204 JOSE GARCIA MODALITY 5 [facility] 1/> AREAS INC INC ULTRASOUN D EA 15 MIN CREATININ 62503 LAB JUAN LAB JUAN E OTHER 5 [facility] [employer] APPL 91894 JOSE GARCIA MODALITY 5 [facility] MEM [...] [facility] [employer] METABOLIT E THERAPEUT 50022 JOSE GARCIA IC PX 1/> 5 [facility] INC INC EACH 15 MIN EXERCISES 90557 CHAMBERLA CHAMBERLA TRANSVAGI 5 IN [facility] IN [facility] NAL PLLC DUP-SCAN 30495 CHAMBERLA CHAMBERLA ARTL CARLI 5 IN [facility] IN [facility] ABDL/PEL/ PLLC SCROT&/RP R ORGN LMT CYTP C/V 17443 P&[facility]S, PICKLESIM AUTO THIN 5 LLC ER JR HERO LYR PREPJ SCR MNL RESCR PHYS THERAPEUT 75727 JOSE GARCIA IC PX 1/> 5 [facility] ARE[facility] INC INC EACH 15 MIN EXERCISES APPL 40047 JOSE GARCIA MODALITY 5 [facility] 1/> AREAS INC INC ELEC STIMJ UNATTENDE D MANUAL 24498 JOSE GARCIA THERAPY 5 [facility] TQS 1/> INC INC REGIONS EACH 15 MINUTES APPL 28662 JOSE GARCIA MODALITY 5 [facility] 1/> AREAS INC INC ULTRASOUN D EA 15 MIN THERAPEUT 94648 JOSE GARCIA IC PX 1/> 5 [facility] AREAS INC INC EACH 15 MIN EXERCISES PHYSICAL 17865 JOSE GARCIA THERAPY 5 [facility] EVALUATIO INC INC N ACUTE 25448 [facility] UNIVERS HEPATITIS 5 Y Y PANEL [facility] SEDIMENTA 74946 [facility] TION RATE 5 Y Y RBC [facility] AUTOMATED RHEUMATOI 14992 [facility] D FACTOR 5 Y Y QUANTITAT [facility] KELSEY RADEX [address]229 [place] Y[place] AMELIA HIPS 5 MEDICAL BILATERAL SERV 2 VIEWS FOUNDATIO ANTEROPOS N T PELVIS RADIOLOGI [address]55 [place] AMELIA Rocha EXAM 5 MEDICAL SACRO[place] SERV C JOINTS FOUNDATIO 3/MORE N VIEWS C-REACTIV 81517 [facility] UNIVERS E PROTEIN 5 Y Y HOSPITAL HOSPITAL COLLECTIO 98740 UNIVERS UNIVERS N VENOUS 5 Y Y BLOOD [facility] VENIPUNCT URE GAUZE A6266 ADVANCED ADVANCED IMPREG [...] 18 T T SQUARE INCHES RADEX ABD 27182 [facility] [place] MARGARETTE COMPL 5 RADIOLOGY RHO AQT ABD W/S/E/D V[address] [place] [address] [facility] [place] HEAD/BRAI 5 RADIOLOGY RHO [...] T T NC PASTE LINR YD THERAPEUT 40782 ELENA PARKER IC 4 [facility] TIC/DX INJECTION SUBQ/IM PUNCTURE 05208 [facility] ASPIRATIO ZOILA ANNETTE N ABSCESS EMERGENCY HEMATOMA PHYS BULLA/CYS T CUL BACT 94857 ELENA PARKER XCPT 4 [facility] BLOOD/STO OL AEROBIC ISOL INJECTION J1885 ELENA CATALAN [address] [place] [address] EQUIPMEN TROMETHAM INE PER 15 MG RADEX 07413 [facility] FOOT 4 [facility] MINIMUM 3 VIEWS DRUG 42822 ANGELA MILLER SCREEN 4 [facility], QUANTITAT [employer] KELSEY NORTRIPTY LINE RADIOLOGI 32742 [facility] 4 EIDER KAMERON EXAMINATI RADIOLOGY ON PELVIS ASSOCIAT 1/2 VIEWS RHEUMATOI 77496 ARREDONDO ARREDONDO D FACTOR 4 CO [facility] KELSEY DRUG 31988 ANGELA MILLER SCREEN 4 [facility], QUANTITAT [employer] K[place]Y IMIPRAMIN E SEDIMENTA 97248 MARIA ELENA ARREDONDO TION RATE 4 CO [facility] NON-AUTOM ATED BLOOD 85988 MARIA ELENA ARREDONDO COUNT 4 CO [facility] AUTO&AUTO DIFRNTL WBC IMMUNOASS 47323 [facility] AY 4 [facility], ANALYTE LLC LLC QUAL/SEMI QUAL MULTIPLE STEP TENS E0720 [place] PAIN [place] PA[place] DEVICE 4 CARE & CARE & TWO LEAD BLUEJAMES [place] LOCALIZED HIG HIG STIMULATI ON MOLECULAR 65948 ANGELA MILLER 4 [facility], PATHOLOGY LLC LLC PROCEDURE LEVEL 2 NEEDLE 45281 SONYA DOVER EMG EA 4 PAIN CARE ANNETTE EXTREMTY & W/PARASPI BLUE[facility]RA NL AREA COMPLETE NERVE 68184 SONYA DOVER CONDUCTIO 4 PAIN CARE ANNETTE N STUDIES & 13/> [facility]UE[facility] STUDIES LUMB L0627 [place] PAIN [place] PAIN ORTHOSIS 4 CARE & CARE & SAGIT [facility] BLUEJAMES [facility] HIG HIG RIGID A&P PANEL PREFAB THERAPEUT 31272 JENNY ALVARADO IC 4 REGIONAL REGIONAL PROPHYLAC MEDICAL MEDICAL TIC/DX CENTE CENTE INJECTION SUBQ/IM CORTISOL 96683 JENNY ALVARADO TOTAL 4 [facility] [place] [address] JENNY ALVARADO THYROID 4 REGIONAL REGIONAL STIMULATI MEDICAL MEDICAL NG CENTE CENTE HORMONE TSH SPECIAL 38482 TANOUS, TANOUS, STAIN 4 JR EDW JR EDW GROUP 1 MICROORGA NISMS I&R SPCL STN 12304 TANOUS, TANOUS, 2 I&R 4 JR EDW JR EDW EXCPT MICROORG/ ENZYME/IM CYT ANES 67616 BA GAV BA GAV UPPER GI 4 ENDOSCOPY PROXIMAL TO DUODENUM COLONOSCO 21365 EMILIA NIETO PY FLX DX 4 GRE GRE W/[place] [address] TANOUS, TANOUS, SURG 4 JR EDW JR EDW PATHOLOGY GROSS&DARRELL ROSCOPIC EXAM EGD 01923 EMILIA NIETO TRANSORAL 4 GRE GRE BIOPSY SINGLE/MU LTIPLE ECG 29135 BAUM LEL BAUM LEL ROUTINE 4 ECG W/LEAST 12 LDS I&R ONLY AMB A0427 GERRY GERRY SERVICE 4 FAYETTE FAYETTE ALS [facility]AN EMERGENCY COGOVT COGOVT TRANSPORT LEVEL 1 ECG 86877 CENTRAL CENTRAL ROUTINE 4 [facility] ECG HOSP HOSP W/LEAST 12 LDS TRCG ONLY W/O I&R GROUND A0425 GERRY GERRY MILEAGE 4 FAYETTE FAYETTE PER URBAN URBAN STATUTE COGOVT COGOVT MILE TECHNETIU A9537 JENNY Dawkins TC-99M 4 [facility] N DX UP CENTE CENTE TO 15 MCI BLOOD 62355 JENNY ALVARADO COUNT [facility] COMPLETE MEDICAL MEDICAL AUTO&AUTO [facility] DIFRNTL WBC HPYLORI 08737 JENNY ALVARADO BREATH [facility] ANAL [facility]ICAL MEDICAL UREASE [facility] [place] [address] JEN[address] ALVARAD[address] LIP[address] [facility] HEPATOBIL 00654 HAJIBRAHI HAJIBRAHI SYST 4 M ZAFAR M ZAFAR IMAG INC GB W/PHARMA INTERVENJ INJECTION J2805 JENNY ALVARADO [facility] SINC[facility]ICAL 5 CENTE CENTE MICROGRAM S COMPREHEN 51982 JENNY ALVARADO SIVE 4 REGIONAL REGIONAL METABOLIC MEDICAL MEDICAL PANEL ZAK CRESPO COLLECTIO 20043 JENNY ALVARADO N VENOUS 4 REGIONAL REGIONAL BLOOD MEDICAL MEDICAL VENIPUNCT ZAK CRESPO URE FLUOR 77705 [facility] NEEDLE/CA 4 PAIN CARE PAIN CARE TH & & SPINE/PAR [facility]UE[facility] BLUEGRA ASPINAL DX/[place] NJX 63746 [place] BRITNEY DX/THER 4 PAIN CARE IRWIN SBST & EPIDURAL/ [facility] SUBARACH LUMBAR/SA CRAL INJECTION J1100 [place] BRITNEY 4 PAIN CARE IRWIN DEXAMETHO & SONE [facility] SODIUM PHOSPHATE 1 MG RADEX 08868 JENNY ALVARADO UPPER GI 4 REGIONAL REGIONAL W/WO MEDICAL MEDICAL GLUCAGON/ ZAK [place]ES[place] [address] LINCOLN LINCOLN ABDOMINAL 4 ZEYNEP ZEYNEP REAL TIME W/IMAGE LIMITED PH BODY 94840 [place] GILBERT FLUID NOT 4 PAIN CARE ANNETTE & ELSEWHERE [facility] SPECIFIED NDL EMG 2 05026 [facility] XTR W/WO 4 PAIN CARE PAIN CARE RELATED & & PARASPINA BLUEGRA BLUEGRA L AREAS PH BODY 07276 [place] GILBERT FLUID NOT 4 PAIN CARE ANNETTE & ELSEWHERE [facility] SPECIFIED SPECTROPH 01334 [place] ENA BRA OTOMETRY 4 PAIN CARE ANALYT & NOT [facility]RA ELSEWHERE SPECIFIED MRI LOWER 72808 [facility] YEH TRA EXTREM 4 [place] OTH/THN ORTHOPAED JT W/O ICS PLC CONTR MATRL RADEX 49970 [facility] YEH TRA FOOT 3 [place] COMPLETE ORTHOPAED MINIMUM 3 ICS PLC VIEWS SHORT-LAT 04979 [facility] ENCY 3 PAIN CARE PAIN CARE SOMATOSEN & & S EP STD BLUE[facility]RA BLUEGRA LWR LIMBS RADEX 20492 [facility] SPINE 3 EIDER KAMERON THORACOLU RADIOLOGY MBAR ASSOCIAT JUNCTION MIN 2 VIEWS RADEX 19090 [facility], [facility], SPINE 3 SCREENING TECHNICIAN SCREENING TECHNICIAN CERVICAL JESUS JESUS 2 OR 3 [place] [address]04 SONYA DOVER SPINAL 3 PAIN CARE ANNETTE CANAL & LUMBAR BLUE[facility]RA W/O CONTRAST MATERIAL PH BODY 49061 SONYA GILBERT FLUID NOT 3 PAIN CARE ANNETTE & ELSEWHERE [facility] SPECIFIED CREATININ 46388 SONYA GILBERT E OTHER 3 PAIN CARE ANNETTE SOURCE & BLUEGRA URNLS DIP 48756 SONYA GILBERT 3 PAIN CARE ANNETTE STICK/TAB & LET RGNT BLUEGRA AUTO W/O MICROSCOP Y SPECTROPH 17335 SONYA GILBERT OTOMETRY 3 PAIN CARE ANNETTE ANALYT & NOT BLUEGRA ELSEWHERE SPECIFIED CRTCHS E0114 [employer] [employer] [facility] UNDARM 3 OTH THAN WOOD PAIR PAD TIP&HNDGR IP RADEX 43827 SONYA TOÑO FOOT 3 MEDICAL KRYS COMPLETE IMAGING MINIMUM 3 ASS VIEWS URNLS DIP 02352 SONYA HATCHBERT 3 PAIN CARE ANNETTE STICK/TAB & LET RGNT BLUEGRA AUTO W/O MICROSCOP Y CREATININ 73918 SONYA GILBERT E OTHER 3 PAIN CARE ANNETTE SOURCE & BLUEGRA PH BODY 46541 SONYA GILBERT FLUID NOT 3 PAIN CARE ANNETTE & ELSEWHERE BLUEGRA SPECIFIED SPECTROPH 65061 SONYA DOVER OTOMETRY 3 PAIN CARE ANNETTE ANALYT & NOT BLUEGRA ELSEWHERE SPECIFIED CANE INCL E0100 [facility] CANES 3 ALL MATERIAL ADJUSTBLE /FIX W/TIP NEEDLE 58906 ARACELI STILES AMELIA EMG EA 3 N EXTREMTY NEUROLOGY W/PARASPI NL AREA COMPLETE THERAPEUT 04264 [employer], IC PX 1/> 3 SCREENING TECHNICIAN SCREENING TECHNICIAN AREAS JESUS JESUS EACH 15 CO HOS CO HOS MIN EXERCISES THERAPEUT 25439 [employer], IC PX 1/> 3 SCREENING TECHNICIAN SCREENING TECHNICIAN AREAS JESUS JESUS EACH 15 CO HOS CO HOS MIN EXERCISES WALKER E0143 [facility] FOLDING 3 WHEELED ADJUSTABL [place] [address] [employer], 1/> AREAS 3 SCREENING TECHNICIAN SCREENING TECHNICIAN EA 15 JESUS JESUS MIN GAIT CO HOS CO HOS TRAINJ W/STAIR MRI 70955 [facility]IAG [place] [facility] SPINAL 3 NOSTICS CANAL INC THORACIC W/[place] [address] [facility], [facility] INC, 1/> AREAS 3 SCREENING TECHNICIAN SCREENING TECHNICIAN EA 15 JESUS CORDOVAS MIN GAIT CO HOS CO HOS TRAINJ W/STAIR THERAPEUT 16739 [facility] INC, [facility] INC, IC PX 1/> 3 SCREENING TECHNICIAN SCREENING TECHNICIAN AREAS JESUS LEE EACH 15 CO HOS CO HOS MIN EXERCISES THERAPEUT 12690 [facility] INC, [facility] INC, IC PX 1/> 3 SCREENING TECHNICIAN SCREENING TECHNICIAN AREAS JESUS CORDOVAS EACH 15 CO HOS CO HOS MIN EXERCISES CUL BACT 77329 [facility] AEROBIC 3 OF AMERIC ADDL TORI HOLDING METHS HOLDINGS DEFINITIV E EA ISOL CULTURE 08964 [facility] BACTERIAL 3 OF AMERIC TORI HOLDING QUANTTATI HOLDINGS VE COLONY COUNT URINE CULTURE 51209 [facility] BCT 3 OF AMERIC ISOL&PRSM TORI HOLDING PTV ID HOLDINGS ISOLATE EA URINE SUSCEPTIB 70889 [facility] LTY STDY 3 OF AMERIC ANTIMICRB TORI HOLDING IAL HOLDINGS MICRO/AGA R DILUTJ THERAPEUT 85147 [facility] [employer], [facility] INC, IC PX 1/> 3 SCREENING TECHNICIAN SCREENING TECHNICIAN AREAS JESUS LEE EACH 15 CO HOS CO HOS MIN EXERCISES THERAPEUT 05188 [facility] [employer], [facility] INC, IC PX 1/> 3 SCREENING TECHNICIAN SCREENING TECHNICIAN AREAS JESUS LEE EACH 15 CO HOS CO HOS MIN EXERCISES PHYSICAL 12203 [facility] [employer], [facility] INC, THERAPY 3 SCREENING TECHNICIAN SCREENING TECHNICIAN EVALUATIO JESUS LEE N CO HOS CO HOS APPLICATI 93.54 Fifi ON OF Malinda SANTIAGO SPLINT Encounters Encounter Start End Date Code Location Performer Type Date [facility] [place] [facility] 7 [facility] [place] [facility] 7 7 [facility] T OFFICE 34547 [facility] [place] [facility] 7 VESTA ERVIN T VISIT ,PSC 25 MINUTES OFFICE 73220 DENNIS DENNIS OUTPATIEN 7 7 Brianna ERVIN VISIT ,PSC 25 MINUTES OFFICE 64383 [facility] OUTPATIEN 7 7 CLINIC T VISIT 15 MINUTES [facility] - 7 7 HEALTH OUTPATIEN MANNING T OFFICE 69668 [facility] RIANALER OUTPATIEN 7 7 SURGICAL T NEW 45 ASSOCIATE MINUTES S OFFICE 90097 [facility] CORTES- OUTPATIEN 7 7 CLINIC SE T VISIT 15 MINUTES OFFICE 78029 [facility] CORTES- OUTPATIEN 7 7 CLINIC SE T VISIT 15 MINUTES OFFICE 53136 SONNY CARDENAS OUTPATIEN 7 7 Brianna ERVIN VISIT ,PSC 25 MINUTES HOSP[facility] 7 7 [facility] OFFICE 89537 [facility] LOOMIS OUTPATIEN 7 7 HEALTH T VISIT MEDICAL 40 GROUP MINUTES OFFICE 28791 DENNIS DENNIS OUTPATIEN 6 6 Brianna ERVIN MD,PSC 25 MINUTES OFFICE 68339 DENNIS DENNIS OUTPATIEN 6 6 JOSELIN ERVIN VISIT ,PSC 25 MINUTES OFFICE 54464 HASMU[facility] CORTES- OUTPATIEN 6 6 CLINIC SE NATHANIEL T VISIT 15 MINUTES OFFICE 10196 [place] FITZGERAL OUTPATIEN 6 6 PAIN CARE D DARRELL T VISIT & 15 BLUEGRA MINUTES EMERGENCY 15250 ELENA 5 5 [facility] H[facility]PITAL T VISIT MODERATE SEVERITY [facility] 00633 [facility] 5 5 ZOILA DIANA [facility] EMERGENCY T VISIT PHYS HIGH/URGE NT SEVERITY OFFICE 92601 [place] DO AN OUTPATIEN 5 5 PAIN CARE T VISIT & 15 BLUEGRA MINUTES EMERGENCY 24520 [facility] 5 5 ZOILA MUH [facility] EMERGENCY T VISIT PHYS HIGH/URGE NT SEVERITY OFFICE 38367 [facility] MELO OUTPATIEN 5 5 CLINIC T VISIT 10 MINUTES [facility] [place] - 5 5 [facility] T OFFICE 24649 HAS[facility] MELO OUTPATIEN 5 5 CLINIC T VISIT 15 MINUTES OFFICE 86781 [place] PAIN OZUMBA OUTPATIEN 5 5 CARE & ANDREW T VISIT [facility] 15 HIG MINUTES OFFICE 55449 HASMUKH CORTES- OUTPATIEN 5 5 CLINIC SE NATHANIEL T VISIT 15 MINUTES OFFICE 72878 [place] PAIN OZUMBA OUTPATIEN 5 5 CARE & ANDREW T VISIT [facility] 15 HIG MINUTES OFFICE 66825 SONYA FIELDLIS OUTPATIEN 5 5 PAIN CARE DEM T VISIT & 15 BLUEGRA MINUTES OFFICE 24012 [place] PAIN DANGARIA OUTPATIEN 5 5 CARE & BLAKE T VISIT [facility] 15 HIG MINUTES OFFICE 92634 CHAMBERLA CHAMBERLA OUTPATIEN 5 5 IN CLINIC IN [facility] T VISIT 5 PLLC MINUTES HOSPITAL JOSE - 5 5 MEM HOSP OUTPATIEN INC T PERIODIC 87635 CHAMBERLA CHAMBERLA PREVENTIV 5 5 IN CLINIC IN [facility] E MED EST [facility] PATIENT 18-39 YRS OFFICE 43061 [place] PAIN DANGARIA OUTPATIEN 5 5 CARE & BLAKE T VISIT [facility] 15 HIG MINUTES HOSPITAL JOSE - 5 5 MEM [facility]P OUTPATIEN INC T OFFICE 77414 [place] PAIN DANGARIA OUTPATIEN 5 5 CARE & BLAKE T VISIT [facility] 15 HIG MINUTES OFFICE 51586 [facility] LAUSE FED OUTPATIEN 5 5 T VISIT 15 MINUTES HOSPITAL UNIVERSIT - 5 5 Y [facility] T OFFICE 07664 [facility] JAZZ CONSULTAT 5 5 NURSE SANTINO NAM NEW/ESTAB NER GR PATIENT 80 MIN OFFICE 49336 [facility] FED LAUSE FED OUTPATIEN 5 5 T VISIT 15 MINUTES EMERGENCY 35218 [facility] DEPT 5 5 ZOILA MUH VISIT EMERGENCY HIGH PHYS SEVERITY& THREAT FUNCJ OFFICE 12964 [facility] PETTY KAMERON OUTPATIEN 5 5 CLINIC T VISIT 15 MINUTES OFFICE 70994 [facility] LAUSE FED OUTPATIEN 5 5 T VISIT 15 MINUTES OFFICE 25616 LAUSE FED LAUSE FED OUTPATIEN 5 5 T NEW 30 MINUTES OFFICE 58915 [facility] PETTY KAMERON OUTPATIEN 5 5 CLINIC T VISIT 15 MINUTES OFFICE 33434 [facility] PETTY KAMERON OUTPATIEN 4 4 CLINIC T VISIT 15 MINUTES EMERGENCY 76977 [place] 4 4 [facility] T VISIT HIGH/URGE NT SEVERITY HOSPITAL BOIGGYON - 4 4 [facility] T EMERGENCY 52932 [facility] 4 4 ZOILA [facility] EMERGENCY T VISIT PHYS HIGH/URGE NT SEVERITY HOSPITAL ARREDONDO - OTHER 4 4 NM HOSPITAL EMERGENCY 92197 ARREDONDO 4 4 [facility] T VISIT MODERATE SEVERITY OFFICE 03334 [place] PAIN ELISABETH OUTPATIEN 4 4 CARE & LUCIA T VISIT [facility] 15 HIG MINUTES OFFICE 82876 [facility] TIKHTMAN OUTPATIEN 4 4 NEUROLOGY AMY T VISIT 25 CONSULTAN MINUTES T OFFICE 11646 [place] PAIN ELISABETH OUTPATIEN 4 4 CARE & LUCIA T [facility]IT [facility] 15 HIG MINUTES OFFICE 87640 JC GREENE CONSULTAT 4 4 AMY AMY ION NEW/ESTAB PATIENT 80 MIN OFFICE 82361 SONYA LOPEZR OUTPATIEN 4 4 PAIN CARE IRWIN T VISIT & 25 BLUEGRA MINUTES HOSPITAL JENNY - 4 4 REGIONAL OUTPATIEN MEDICAL T CENTE OFFICE 52001 EMILIA NIETO OUTPATIEN 4 4 GRE GRE T VISIT 25 MINUTES OFFICE 20932 SONYA DOVER OUTPATIEN 4 4 PAIN CARE ANNETTE T VISIT & 15 BLUEGRA MINUTES EMERGENCY 98009 [facility] [address] [facility] DEPARTMEN EMERGENCY T VISIT PHYSI HIGH/URGE NT SEVERITY EMERGENCY 35054 [facility] 4 4 [facility] DEPARTMEN HOSP T VISIT HIGH/URGE NT SEVERITY HOSPITAL [facility] - 4 4 [facility] OUTPATIEN HOSP T OFFICE 69016 SONYA GIFFORDLIFF OUTPATIEN 4 4 PAIN CARE LUCIA T VISIT & 15 BLUEGRA MINUTES OFFICE 45934 LAINE JANG OUTPATIEN 4 4 MIAH MIAH T VISIT 25 MINUTES HOSPITAL JENNY - 4 4 REGIONAL OUTPATIEN MEDICAL T CENTE OFFICE 23844 SONYA GIFFORDLIFF OUTPATIEN 4 4 PAIN CARE LUCIA T VISIT & 25 BLUEGRA MINUTES HOSPITAL JENNY - 4 4 REGIONAL OUTPATIEN MEDICAL T CENTE OFFICE 44523 JENNY JANG CONSULTAT 4 4 REGIONAL MIAH ION PHYSICIAN NEW/ESTAB PRA PATIENT 60 MIN HOSPITAL [facility], - 4 4 SCREENING TECHNICIAN OUTPATIEN JESUS T CO HOS OFFICE 07333 SONYA DOVER OUTPATIEN 4 4 PAIN CARE ANNETTE T VISIT & 25 BLUEGRA MINUTES OFFICE 58357 SONYA BREAUX OUTPATIEN 4 4 PAIN CARE T VISIT & 25 BLUEGRA MINUTES OFFICE 71009 SONYA DOVER OUTPATIEN 4 4 PAIN CARE ANNETTE T VISIT & 25 BLUEGRA MINUTES OFFICE 98565 [facility] YEH TRA OUTPATIEN 4 4 [place] T VISIT ORTHOPAED 15 ICS PLC MINUTES OFFICE 41534 SONYA DOVER OUTPATIEN 4 4 PAIN CARE ANNETTE T VISIT & 25 BLUEGRA MINUTES OFFICE 23108 [facility] YEH TRA OUTPATIEN 4 4 [place] T VISIT ORTHOPAED 15 ICS PLC MINUTES OFFICE 53174 YEH TRA YEH TRA OUTPATIEN 4 4 T VISIT 15 MINUTES OFFICE 99224 SONYA DOVER OUTPATIEN 4 4 PAIN CARE ANNETTE T VISIT & 15 BLUEGRA MINUTES OFFICE 14209 [facility] YEH TRA CONSULTAT 3 3 [place] ION ORTHOPAED NEW/ESTAB ICS PLC PATIENT 60 MIN HOSPITAL [facility], - 3 3 SCREENING TECHNICIAN OUTPATIEN JESUS T CO HOS OFFICE 41653 SONYA DOVER OUTPATIEN 3 3 PAIN CARE ANNETTE T VISIT & 15 BLUEGRA MINUTES Emergency EVA Aviles MD (ER) 3 15:53 3 16:53 [facility] EMERGENCY 98688 BRUNO QUINTANILLA 3 3 EMERGENCY DEPARTMEN SERVICES T VISIT HIGH/URGE NT SEVERITY OFFICE 83912 SONYA DOVER OUTPATIEN 3 3 PAIN CARE ANNETTE T NEW 30 & MINUTES [facility] OFFICE 79402 [facility] BEATTY OUTPATIMINA 3 3 CLINIC HEN T VISIT 15 MINUTES HOSPITAL [facility], - 3 3 SCREENING TECHNICIAN OUTPATIEN JESUS T CO HOS [facility] - 3 3 SCREENING TECHNICIAN OUTPATIEN JES[facility], - 3 3 SCREENING TECHNICIAN OUTPATIEN JESUS T CO HOS OFFICE 43836 ARACELI CISNEROS OUTPATIEN 3 3 N T VISIT NEUROLOGY 25 MINUTES HOSPITAL [facility] - 3 3 SCREENING TECHNICIAN OUTPATIEN JESUS T [facility], - 3 3 SCREENING TECHNICIAN OUTPATIEN JESUS [facility], - 3 3 SCREENING TECHNICIAN OUTPATIEN JESUS T CO HOS OFFICE 97657 ARACELI CISNEROS OUTPATIEN 3 3 N T NEW 45 NEUROLOGY MINUTES HOSPITAL [facility] - 3 3 SCREENING TECHNICIAN OUTPATIEN JESUS T CO [facility], - 3 3 SCREENING TECHNICIAN OUTPATIEN JESUS T CO HOS
--- OUTSIDE RECORDS SUMMARY | 2017-05-22 19:31 | External Medical Summary Rpt | CCD ---
Author Author , ROSE Organization [facility] Address Unknown Phone [email or web address] Care Team Providers Care Reporter Name Role Phone ABLECARE, ABLECARE Unavailable Unavailable [facility] Unavailable Unavailable MANAGEMENT, AD[facility]ED TISSUE MANAGEMENT [facility] Unavailable Unavailable MANAGEMENT, ADVANCED TISSUE MANAGEMENT ALMES, ALMES Unavailable Unavailable BAEHLER, BAEHLER Unavailable Unavailable DENNIS, DENNIS Unavailable Unavailable DENNIS JOSELIN, DENNIS Unavailable Unavailable JOSELIN ERVIN, Unavailable Unavailable ,PSC, SONNY ERVIN MD,PSC [facility] Unavailable Unavailable [place], [place] Unavailable Unavailable MEDICAL GROUP, [facility] Unavailable Unavailable 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 REPAIR SUPERVISOR, [facility] 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 REPAIR SUPERVISOR [facility] Unavailable Unavailable CTR, [facility] Unavailable Unavailable CTR, [facility] LAINE MIAH, LAINE Unavailable Unavailable MIAH LAINE MIAH, LAINE Unavailable Unavailable MIAH PENDLETON ANNETTE, PENDLETON Unavailable Unavailable ANNETTE [facility], Unavailable Unavailable INC, [facility], Unavailable Unavailable INC, [facility] PETTY KAMERON, PETTY KAMERON Unavailable Unavailable [facility] Unavailable Unavailable [facility] CORDOVA JAM, CORDOVA JAM Unavailable Unavailable [facility], Unavailable Unavailable [facility] SEBASTIAN-LUIS ARMSTRONG, Unavailable Unavailable CORTES-VISSuni ARMSTRONG [facility], Unavailable Unavailable [facility], Unavailable Unavailable [facility] [place] Unavailable Unavailable [facility], [facility] [place] [facility] [place] Unavailable Unavailable [facility] Unavailable Unavailable ASSOC, [facility], Unavailable Unavailable [facility] Un[facility] Unavailable [facility], [facility] Unavailable Unavailable MEDICAL ZAK, JENNY [facility] ALVARADO [facility] Unavailable Unavailable PHYSICIAN PRA, [facility], Unavailable Unavailable [facility] TOÑO KRYS, Unavailable Unavailable TOÑO KRYS CINDA LOZANO, Unavailable Unavailable EBONIE RICE Unavailable Unavailable NEA BRA, ENA BRA Unavailable Unavailable DESKINS DIANA, DESKINS Unavailable Unavailable DIANA DO AN, DO AN Unavailable Unavailable [facility], [facility] Unavailable Unavailable CARTER JAM, CARTER JAM Unavailable Unavailable [facility], Unavailable Unavailable [facility], Unavailable Unavailable [facility] LÓPEZ, LÓPEZ Unavailable Unavailable [facility], Unavailable Unavailable [facility] GILBERT ANNETTE, GILBERT Unavailable Unavailable ANNETTE MARGARETTE RHO, MARGARETTE Unavailable Unavailable RHO HAGENSCHNEIDER KAMERON, Unavailable Unavailable HAGENSCHNEIDER KAMERON GALVAN, GALVAN Unavailable Unavailable [facility] Unavailable Unavailable INC, [facility]N ZEYNEP, LINCOLN Unavailable Unavailable ZEYNEP YEH TRA, YEH TRA Unavailable Unavailable YEH TRA, YEH TRA Unavailable Unavailable BAUM LEL, BAUM LEL Unavailable Unavailable [facility] Unavailable Unavailable [facility], [facility] BRITTNY MART Unavailable Unavailable BELIA III NICHOLAS, Unavailable Unavailable BELIA III NICHOLAS [facility] Unavailable Unavailable IMAGING ASS, [facility] Unavailable Unavailable [facility] Unavailable Un[facility], [facility] Unavailable Unavailable [facility] Unavailable Unavailable HOLDING, [...] Unavailable Unavailable COGOVT, GERRY FAYETTE URBAN COGOVT [facility] Unavailable Unavailable SERVICES, [facility] Unavailable Unavailable ASSOCIAT, [facility], [employer] MEMBER [facility] Unavailable Unavailable [facility], [facility], [employer] MEM[facility], Unavailable Unavailable LLC, [facility], [facility], Unavailable Unavailable LLC, [facility] LLC [facility], Unavailable Unavailable [facility], [facility] Unavailable Unavailable [facility], Unavailable Unavailable [facility] STILES [...] ANNETTE SARLIS DEM, SARLIS Unavailable Unavailable DEM [facility] Unavailable Unavailable EMERGENCY PHYS, [facility] Unavailable Unavailable EMERGENCY PHYSI, [facility]available Unavailable CENTER, [facility] Unavailable Unavailable [facility]ENTER, [facility], Unavailable Unavailable [facility], Unavailable Unavailable [facility] TIKHTMAN AMY, Unavailable Unavailable TIKHTMPOORNIMA AMY [facility] Unavailable Unavailable ASSOCIATES, [facility], Unavailable Unavailable [facility] WAFFDAIN SANTINO, WAFFDAIN Unavailable Unavailable SANTINO MALINDA QUINTANILLA, MALINDA QUINTANILLA Unavailable Unavailable STACIE, Unavailable Unavailable STACIE BRITNEY IRWIN, BRITNEY Unavailable Unavailable IRWIN Purpose Continuity of Care Document - 12-01-2012 through 2016 Problems Code Diagnosis DOS Provider Status K208 OTHER 03-09-2017 [facility] ESOPHAGITIS PHYS SURG CTR R1013 EPIGASTRIC 03-09-2017 [facility] [place] PAIN ANESTHESIA [id number] SPRAIN 02-19-2017 [facility] UNSPECIFIED BRACING, SITE LT INC KNEE INITIAL ENCNTR O18840 PAIN IN 02-10-2017 [facility] KNEE [facility] M2392 UNSPECIFIED 02-05-2017 [facility], DERANGEMENT INC OF LEFT KNEE R928 OTH ABNORM 01-19-2017 [facility] E FIND ON DX IMAG BREAST K219 GASTRO-ESOP 01-06-2017 [facility] [place] H REFLUX RADIOLOGY DISEASE WITHOUT ESOPHAGITIS D29550 PAIN IN 01-06-2017 [facility] [place] LEFT HIP RADIOLOGY M545 LOW BACK 01-06-2017 [facility] [place] [facility] [facility] P64693 SPONDYLOSIS 2017 SONNY W/O ARCADIO, MYELOPATH/R ,PSC ADICULOPATH Y LUMB RGN A86485 EXPRESSIVE THERAPIST 11-21-2016 SONNY CURRENT USE ARCADIO OF OPIATE ,PSC ANALGESIC J101 FLU D/T OTH 10-14-2016 [facility] ID FLU CLINIC VIRUS OTH RESP MANIFESTATI ONS K838 OTHER 09-29-2016 [facility] SPECIFIED HEALTH DISEASES OF [place] BILIARY TRACT R1010 UPPER 09-29-2016 [facility] PAIN ASSOC UNSPECIFIED R1011 RIGHT UPPER 09-23-2016 [facility] J020 STREPTOCOCC 09-18-2016 [facility] AL CLINIC PHARYNGITIS L089 LOCAL INF 09-18-2016 [facility] THE SKIN & CLINIC SUBCUTANEOU S TISSUE UNS P4778OT ADVERSE 09-18-2016 [facility] EFFECT UNS CLINIC SYSTEMIC ABX INITIAL ENCNTR T79273 UNSPECIFIED 08-14-2016 [facility] CYST LEFT [place] SIDE R109 UNSPECIFIED 08-14-2016 [facility]OM[facility] PAIN ASSOC G8929 OTHER 08-08-2016 [facility] MEDICAL GROUP M461 SACROILIITI 01-17-[address] S NOT SURGERY ELSEWHERE CENTER CLASSIFIED R39510 UNS ACUTE 09-06-2015 [facility] NONINFECTIV CLINIC E OTITIS EXTERNA RIGHT EAR J0190 ACUTE 09-06-2015 [facility] SINUSITIS CLINIC UNSPECIFIED M5033 OTH CERV 08-06-2015 [place] DIS[facility] DEGEN PAIN CARE & CERVICOTHOR [facility] ACIC REGION M5136 OTH 08-06-2015 [place] INTERVERTEB PAIN CARE & RAL DISC [facility] DEGEN LUMBAR REGION M542 CERVICALGIA 08-06-2015 [place] [facility] Z49251 PAIN IN 06-18-2015 [facility] [place] RIGHT RADIOLOG[facility] SHOULDER V04993 PAIN IN 06-18-2015 [facility] [place] RIGHT WRIST RADIOLOGY J69636 PAIN IN 06-18-2015 [facility] [place] RIGHT KNEE RADIOLOGY L18632 PAIN IN 06-18-2015 [facility] [place] RIGHT ANKLE RADIOLOGY Y72693 PAIN IN 06-18-2015 [facility] [place] RIGHT HAND RADI[facility] Z61975 PAIN IN 06-18-2015 [facility] [place] RIGHT FOOT RADIOLOGY N88585F CONTUSION 06-18-2015 [facility] RIGHT N EMERGENCY SHOULDER PHYS INITIAL ENCOUNTER T94720U CONTUSION 06-18-2015 [place] UNSPECIFIED [facility] INITIAL ENCOUNTER P96779C CONTUSION 06-18-2015 [place] [facility] UNSPECIFIED HOSPITAL WRIST INITIAL ENCOUNTER U28761R CONTUSION 06-18-2015 [facility] HAND PHYS INITIAL ENCOUNTER F59465K CONTUSION 06-18-2015 [facility] UNSPECIFIED HOSPITAL HAND INITIAL ENCOUNTER L2384UK CONTUSION 06-18-2015 [facility] UNSPECIFIED HOSPITAL KNEE INITIAL ENCOUNTER R1629VO CONTUSION 06-18-2015 [facility] EMERGENCY KNEE PHYS INITIAL ENCOUNTER Y3626GO CONTUSION 06-18-2015 [facility] UNSPECIFIED HOSPITAL ANKLE INITIAL ENCOUNTER T5573NR CONTUSION 06-18-2015 [facility] EMERGENCY ANKLE PHYS INITIAL ENCOUNTER A8273KK CONTUSION 06-18-2015 [facility] UNSPECIFIED HOSPITAL FOOT INITIAL ENCOUNTER H65HAXY UNSPECIFIED 06-18-2015 [facility] N EMER[facility]ENCY INITIAL PHYS ENCOUNTER G894 CHRONIC 06-11-2015 [place] [facility] [facility]ARE & SYNDROME [facility] J189 PNEUMONIA 05-31-2015 [facility] UNSPECIFIED N EMERGENCY ORGANISM PHYS R05 COUGH 05-31-2015 [facility] N EMERGENCY PHYS Z09 ENC F/U 05-30-2015 [facility] EXAM AFTR CLINIC CMPL TX OTH THAN MALIG NEOPLSM R0602 SHORTNESS 05-28-2015 [facility] OF BREATH CLINIC R062 WHEEZING 05-28-2015 [facility] 17290 DISPLCMT 04-17-2015 [place] [facility] LUMBAR CARE & INTERVERT [facility] DISC W/O HIG MYELOPATHY 85894 DEGEN 04-17-2015 [place] LUMBAR/LUMB CARE & OSACRAL [facility] INTERVERTEB HIG RAL DISC 7244 THORACIC/SUDHA 04-17-2015 [place] PA[place] MBOSACRAL CARE & NEURITIS/RA [facility] DICULITIS HIG UNSPEC 7248 OTHER 04-17-2015 [place] PA[place] SYMPTOMS CARE & REFERABLE [facility] TO BACK HIG 4619 ACUTE 04-13-2015 [facility] SINUSITIS, CLINIC UNSPECIFIED 80361 OTHER 04-13-2015 [facility]IN[facility] FATIGUE 90193 PALLOR 04-13-2015 [facility] 64274 PAINFUL 04-13-2015 [facility] 55634 UNSPECIFIED 02-26-2015 [place] [facility] [facility] & ARTHROPATHY [facility] PELVIC HIG REGION AND THIGH 7202 SACROILIITI 02-26-2015 [place] PA[place] S NOT CARE & ELSEWHERE [facility] CLASSIFIED HIG 7242 LUMBAGO 02-26-2015 [place] [facility] & [facility] 20047 OTHER 01-23-2015 [facility] CHRONIC HEALTH, [facility] PAIN V7109 OBSERVATION 01-23-2015 [facility] OF OTHER HEALTH, [facility] SUSPECTED MENTAL CONDITION V5869 LONG-TERM 11-28-2014 80/20 Solutions (CURRENT) TORI USE OF HOLDINGS OTHER MEDICATIONS 6202 OTHER AND 11-24-2014 [facility] UNSPECIFIED CLINIC OVARIAN PLLC CYST 98450 DEGEN 11-24-2014 [facility] ORACOLUMBAR INC INTERVERTEB RAL DISC 7241 PAIN IN 11-24-2014 [facility] SPINE INC 65091 SPASM OF 11-24-2014 [facility] INC 24431 ABDOMINAL 11-24-2014 [facility] PAIN, LEFT CLINIC LOWER PLLC QUADRANT V571 OTHER 11-24-2014 [facility] THERAPY INC 6259 UNSPEC 11-22-2014 [facility] SYMPTOM CLINIC ASSOC PLLC W/FEMALE GENITAL ORGANS V7231 ROUTINE 11-21-2014 [facility], GYNECOLOGIC [facility] AL EXAMINATION 7213 LUMBOSACRAL 11-20-2014 [place] [facility] & SPONDYLOSIS [facility] WITHOUT HIG MYELOPATHY 3558 UNSPECIFIED 09-25-2014 [facility] MONONEURITI S OF LOWER LIMB 04557 ULCER OF 09-25-2014 [facility] HEEL AND MIDFOOT 7092 SCAR 09-25-2014 [facility] CONDITION AND FIBROSIS OF SKIN 26456 REFLEX 09-08-2014 [facility] DYSTROPHY OF THE LOWER LIMB 57275 UNSPEC 09-08-2014 [facility] PROTRUSION FOUNDATION ACETAB PELV RGN&THI 90656 EFFUSION OF 09-08-2014 [facility] LEG [facility] JOINT 47487 PAIN IN 09-08-2014 [place] [facility]INT, [facility] LOWER LEG 7226 DEGENERATIO 09-08-2014 [facility] INTERVERTEB RAL DISC SITE UNSPEC 7291 UNSPECIFIED 09-08-2014 [facility] MYOSITIS 7295 PAIN IN 09-08-2014 [facility] TISSUES OF LIMB 32634 PRESSURE 09-04-2014 [facility] HEEL TISSUE MANAGEMENT 9172 FOOT&TOE 08-28-2014 [facility] BLISTER WITHOUT MENTION OF INFECTION 2768 HYPOPOTASSE 08-24-2014 [facility] MISSAEL N EMERGENCY PHYS 4580 ORTHOSTATIC 08-24-2014 [facility] EMERGENCY HYPOTENSION PHYS 79245 UNSPECIFIED 08-24-2014 [facility] N EMERGENCY CONSTIPATIO PHYS N 7802 SYNCOPE AND 08-24-2014 [facility] [place] COLLAPSE RADIOLOGY 37425 NAUSEA WITH 08-24-2014 [facility] VOMITING [facility]INIC 7881 DYSURIA 08-24-2014 [facility] 7098 OTHER 08-02-2014 [facility] SPECIFIED CLINIC DISORDER OF SKIN V679 UNSPECIFIED 07-24-2014 [facility] FOLLOW-UP CLINIC EXAMINATION 73823 UNSPECIFIED 07-21-2014 [facility] REFLEX N EMERGENCY SYMPATHETIC PHYS DYSTROPHY 6827 CELLULITIS 07-21-2014 [facility] N EMERGENCY OF FOOT PHYS EXCEPT TOES 76021 ULCER OF 07-13-2014 [facility] OTHER PART N EMERGENCY OF FOOT PHYS 86820 OSTEOARTHRO 07-13-2014 [facility] S UNSPEC RADIOLOGY GEN/LOC ASSOCIAT PELV REGION&THIG H 7243 SCIATICA 07-13-2014 [facility] 7245 UNSPECIFIED 07-13-2014 [facility] 7820 DISTURBANCE 05-02-2014 [facility] OF SKIN NEUROLOGY SENSATION 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 REPAIR SUPERVISOR 07675 ESOPHAGEAL 03-07-2014 [facility] REFLUX GRE 76108 REFLUX 02-09-2014 JR NEO ESOPHAGITIS EDW 70839 NAUSEA 02-09-2014 [facility] ALONE GRE 27999 VOMITING 02-09-2014 [facility] ALONE GRE 11808 ABDOMINAL 02-09-2014 [facility] G[facility] PAIN, UNSPECIFIED SITE 42319 DEHYDRATION 02-03-2014 [facility] N EMERGENCY PHYSI 72500 VOLUME 01-29-2014 [facility] DEPLETION [facility] UNSPECIFIED HOSP 7804 DIZZINESS 01-29-2014 [facility] AND [facility] GIDDINESS HOSP 03915 ABDOMINAL 01-29-2014 [facility] PAIN, [facility] EPIGASTRIC HOSP 7934 NONSPECIFIC 01-10-2014 [facility] MIAH ABN FINDING RAD & OTH EXAM GI TRACT 15918 ABDOMINAL 01-02-2014 [facility] PAIN RIGHT REGIONAL UPPER MEDICAL QU[facility]ANT CENTE 7933 NONSPECIFIC 01-02-2014 [facility] ABN FINDNG REGIONAL RAD&OTH MEDICAL EXAM BILARY CENTE TRCT 80853 FEVER 12-13-2013 [facility] UNSPECIFIED REGIONAL PHYSICIAN PRA 5758 OTHER 11-30-2013 SALAZAR ADHIKARI SPECIFIED DISORDER OF GALLBLADDER 77281 SPONDYLOSIS 11-02-2013 [place] WITH PAIN CARE & MYELOPATHY [facility] LUMBAR REGION 3559 MONONEURITI 10-03-2013 [facility] [place] S OF ORTHOPAEDIC UNSPECIFIED S PLC SITE 17200 PAIN IN 10-03-2013 [facility] [place] JOINT, ORTHOPAEDIC ANKLE AND S PLC FOOT 7224 DEGENERATIO 09-05-2013 [place] N OF PAIN CARE & CERVICAL [facility] INTERVERTEB RAL DISC 6869 UNSPEC 08-15-2013 [facility] TRA LOCAL INFECTION SKIN&SUBCUT ANEOUS TISSUE 29430 SCOLIOSIS , 07-07-2013 [facility], IDIOPATHIC EZPAWN SALES AND LENDING TEAM [place] 20156 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 [facility], FUSION OF EZPAWN SALES AND LENDING TEAM MEMBER SPINE [facility] HOS 83874 SPINAL STEN 06-13-2013 [place] LUMB REG PAIN CARE & W/O [facility] NEUROGENIC CLAUDICATIO N 73385 UNSPECIFIED 05-20-2013 [place] [facility]ITE OF EMERGENCY ANKLE SERVICES SPRAIN AND STRAIN E8889 UNSPECIFIED 05-20-2013 [place] [facility] 3441 PARAPLEGIA 04-19-2013 [facility] 70986 OTH 01-04-2013 [facility] NE[facility] ETAL SX REFERABLE LIMBS OTH 90299 SWELLING OF 01-03-2013 [facility], LIMB EZPAWN SALES AND LENDING TEAM MEMBER [facility]OS 7292 UNSPECIFIED 12-16-2012 [facility] INC NEURITIS AND RADICULITIS 5959 UNSPECIFIED 12-10-2012 [facility] OF CYSTITIS [facility] Medications Na ND Rx Da Fi Fi [...] 17 17 29 FA -P 2 98 ND SE LY ER UG 5- 12 0 MG TA B Procedures Procedure DOS Code Location Performer Comment ANES 16143 [facility] UPPER GI 7 [place] ENDOSCOPY ANESTHESI [place]OX[place] DUODENUM EGD 67003 [facility] YARSANI TRANSORAL 7 PHYS SURG PHYS SURG BIOPSY CTR CTR SINGLE/MU LTIPLE KNEE L1812 [facility]THOSIS 7 BRACING, BRACING, ELASTIC INC INC WITH JOINTS PREFAB ADD LOW L2795 [facility] EXTREM 7 BRACING, BRACING, ORTHOTIC INC INC KNEE [facility] FULL KNEECAP MRI ANY 88879 ELENA YoungT LOWER 7 [facility] W/O CONTRAST MATRL KO ELAST L1820 [facility] W/CONDYLR 7 BRACING, BRACING, PADS&JNT INC INC PRFAB INCL FIT&ADJ DIAGNOSTI G0206 [address] HY INCL CAD WHEN PERF; UNI RADEX 17349 [facility] [place] SPINE 7 RADIOLOGY LUMBOSACR AL MINIMUM 4 VIEWS RADEX 26999 [facility] [place] [facility] ESOPHAGUS 7 RADIOLOGY RADEX HIP 39532 [facility] [place] GALVAN 7 RADIOLOGY UNILATERA L WITH PELVIS 2-3 VIEWS RADIOLOGI 11891 [facility] [place] C 7 RADIOLOGY EXAMINATI ON KNEE 3 VIEWS BLOOD 46252 SONNY DENNIS COUNT 7 BRETT ERVIN MD,PSC AUTO&[place] [address] SONNY DENNIS GLUTAMYLT 7 HECTOR ERVIN MD,PSC GAMMA COLLECTIO 26059 SONNY DENNIS N VENOUS 7 ARCADIO ERVIN BLOOD ,PSC ,PSC VENIPUNCT URE COMPREHEN 72726 SONNY DENNIS SIVE 7 MELY ERVIN MD,PSC PANEL DRUG TEST 93938 SONNY DENNIS PRSMV 7 ROSA ISELA ERVIN MD,PSC CHEMISTRY [place] 34366 SONNY DENNIS SAME 7 ARCADIO ERVIN, PHYS/QHP ,PSC ,PSC INITIAL 15 MINS 5/> YRS DSTR 37735 SONNY ROSS NROLYTC 7 MARANDA ERVIN MD,PSC PARVERTEB FCT SNGL LMBR/SACR AL COLLECTIO 82277 [facility] YARSANI N VENOUS 7 [facility] BLOOD [facility] VENIPUNCT URE COMPREHEN 94127 YARSANI YARSANI SIVE 7 [facility] METABOLIC [facility] [place] [address] YARSANI YARSANI GLUTAMYLT 7 [facility] RASE [facility] [place] [address] [facility] ABDOMINAL 7 RADIOLOGY REAL ASSOC TIME W/IMAGE LIMITED BLOOD 12234 [facility] YARSANI COUNT 7 [facility] COMPLETE [facility] AUTO&[place] [address] Y[facility]ANI YARSANI LIPASE 7 [facility] [place] [address] [facility] LÓPEZ ABDOMEN & 7 RADIOLOGY PELVIS ASSOC W/CONTRAS T MATERIAL LOCM Q9967 Y[facility]ANI YARSANI [phone] [facility] MG/ML [facility] IODINE CONCENTRA TION PER ML COLLECTIO 50977 DENNIS DENNIS N VENOUS 6 HOLLAND ERVIN MD,PSC VENIPUNCT URE COMPREHEN 52060 DENNIS DENNIS SIVE 6 MELY ERVIN MD,PSC PANEL DRUG TEST G0479 DENNIS DENNIS 6 ARCADIO, PRESUMP;Azael SANTIAGO,[facility] [place] [address] DENNIS DENNIS GLUTAMYLT 6 HECTOR ERVIN MD,[place] [address] DENNIS DENNIS PHOSPHORU Modesta HERNANDEZ MD,PSC INORGANIC BILIRUBIN 71256 DENNIS DENNIS DIRECT Donita ERVIN MD,PSC BLOOD 48777 DENNIS DENNIS COUNT 6 BRETT ERVIN MD,PSC AUTO[place] [address] [place] DX/THER [address] AGT PVRT SURGERY SURGERY FACET JT CENTER CENTER LMBR/SAC 1 LEVEL DRUG TEST G0479 DENNIS DENNIS 6 JOSELIN ERVIN PRESUMP;Azael SANTIAGO,PSC [place] [address] DENNIS DENNIS GLUTAMYLT 6 JOSELIN ERVIN MD,PSC GAMMA COMPREHEN 24019 DENNIS DENNIS SIVE 6 JOSELIN ERVIN MD,PSC PANEL COLLECTIO 65004 DENNIS DENNIS N VENOUS 6 JOSELIN ERVIN MD,PSC VENIPUNCT URE BLOOD 16409 DENNIS DENNIS COUNT 6 JOSELIN ERVIN MD,PSC AUTO&AUTO DIFRNTL WBC BILIRUBIN 67571 DENNIS DENNIS DIRECT 6 JOSELIN ERVIN MD,[place] [address] DENNIS DENNIS PHOSPHORU 6 JOSELIN ERVIN MD,PSC INORGANIC MODERATE 40856 SONNY ROSS SEDATJ 6 RODY ERVIN SAME, MD,PSC PHYS/QHP 5/>YRS INIT 30 MIN NJX 30195 SONNY ROSS DX/THER 6 RODY ERVIN PVRT ,PSC FACET JT LMBR/SAC 2ND LEVEL NJX 17991 STONE STONE DX/THER [address] AGT PVRT SURGERY SURGERY FACET JT CENTER CENTER LMBR/SAC 1 LEVEL INJ PROC G0260 STONE STONE SI [address] JNT;ANES SURGERY SURGERY STEROID&/ CENTER CENTER [place] A[place] [address] SONNY ROSS JOINT 6 RODY ERVIN MD,PSC Y&/ANES/S TEROID W/PEARL RADEX 50685 [facility] [place] [facility] SPINE 5 RADIOLOGY RHO LUMBOSACR AL 2/3 VIEWS NONCOVERE A9270 VILAS MACI D ITEM OR 5 [facility] RADEX 14762 [facility] [place] HAND 5 RADIOLOGY RHO MINIMUM 3 VIEWS RADEX 55556 [facility] [place] ANKLE 5 RADIOLOGY RHO COMPLETE MINIMUM 3 VIEWS RADEX 87491 [facility] [place] SHOULDER 5 RADIOLOGY RHO COMPLETE MINIMUM 2 VIEWS RADEX 95447 [facility] [place] FOOT 5 RADIOLOGY RHO COMPLETE MINIMUM 3 VIEWS RADEX 94604 [facility] [place] WRIST 5 RADIOLOGY RHO COMPLETE MINIMUM 3 VIEWS THERAPEUT 69748 [facility] IC 5 [facility] TIC/DX INJECTION SUBQ/IM RADIOLOGI 50178 [facility] [place] MARG[place] C 5 RADIOLOGY RHO EXAMINATI ON KNEE 3 VIEWS BLOOD 34541 VILAS MACI COUNT [address] [place] [address] AUTO&AUTO DIFRNTL WBC RADIOLOGI 52253 [facility] ODELLROBERT WOOD [facility] C EXAM [address] VIEWS FRONTAL&L ATERAL COLLECTIO 18257 VILAS ODELLROBERT WOOD [facility] N VENOUS 5 [facility] VENIPUNCT URE COMPREHEN 86554 [facility] SIVE 5 [facility] [place] G[address]44 [place] [facility]IN CARE PAIN CARE OR & & METABOLIT [place] OF G6031 [place] [facility] BENZODIAZ 5 PAIN CARE ANDREW EPINES & BLUEGRA OPIATE G6056 [place] [facility] DRUG AND 5 PAIN CARE ANDREW METABOLIT & ES EACH BLUEGRA PROCEDURE INJECTION J0696 [facility]ORT[facility]- [facility] CEFTRIAXO NE SODIUM PER 250 MG THERAPEUT 68009 [facility] CORTES- IC [facility] PROPHYLAC TIC/DX INJECTION SUBQ/IM INJECTION J1100 [place] PAIN 5 CARE & CARE & DEXAMETHO [facility] SONE HIG HIG SODIUM PHOSPHATE 1 MG IMMUNOASS 03941 MILLENNIU MILLENNIU AY 5 [facility] QUAL/SEMI QUAL MULTIPLE STEP MRI 94115 [place] PAIN [place] SPINAL 5 CARE & III NICHOLAS CANAL [facility] LUMBAR HIG W/O CONTRAST MATERIAL ASSAY OF G6032 MILLENNIU MILLENNIU DESIPRAMI 5 [facility] LLC ASSAY OF G6037 MILLENNIU MILLENNIU NORTRIPTY 5 [facility] ASSAY OF G6044 [place] COCAINE 5 CARE & CARE & OR [facility] BL[facility] METABOLIT HIG HIG E ASSAY OF G6036 MILLENNIU MILLENNIU IMIPRAMIN 5 [facility] DRUG 48597 MILLENNIU MILLENNIU SCREEN 5 [facility] KELSEY PHENOBARB ITAL ALKALOIDS G6041 MILLENNIU MILLENNIU URINE 5 [facility] KELSEY ASSAY OF G6030 MILLENNIU MILLENNIU AMITRIPTY 5 [facility] APPL 69890 JOSE GARCIA MODALITY 5 [facility]/> [facility] INC INC ULTRASOUN D EA 15 MIN THERAPEUT 77597 JOSE GARCIA IC PX 1/> 5 [facility] EACH 15 MIN EXERCISES APPL 11726 JOSE GARCIA MODALITY 5 [facility]/> [facility] IONTOPHOR ESIS EA 15 MIN OPIATE G6056 [facility] DRUG AND 5 TORI TORI METABOLIT HOLDINGS HOLDINGS ES EACH PROCEDURE DRUG SCR G0434 [facility] NOT 5 TORI TORI CHROMATOG HOLDINGS HOLDINGS RAPHIC; ANY NUMBER PT ENC ASSAY OF G6040 [facility] ALCOHOL; 5 TORI TORI ANY HOLDINGS HOLDINGS SPECIMEN EXCEPT BREATH ASSAY OF G6042 [facility] AMPHETAMI 5 TORI TORI NE OR HOLDINGS HOLDINGS [place] OF G6044 [facility] COCAINE 5 TORI TORI OR HOLDINGS HOLDINGS METABOLIT E ASSAY OF G6053 [facility] METHADONE 5 [facility] G6031 [facility] BENZODIAZ 5 TORI TORI EPINES HOLDINGS HOLDINGS CREATININ 72219 [facility] E OTHER 5 TORI TORI SOURCE HOLDINGS HOLDINGS 77216 CHAMBERLA CHAMBERLA TRANSVAGI 5 IN [facility] IN [facility] N[facility] THERAPEUT 53912 JOSE GARCIA IC PX 1/> 5 [facility] AREAS INC INC EACH 15 MIN EXERCISES DUP-SCAN 70795 CHAMBERLA CHAMBERLA ARTL CARLI 5 IN [facility]IN[facility] IN [facility] ABDL/PEL/ PLLC SCROT&/RP R ORGN LMT CYTP C/V 89352 P&C LABS, PICKLESIM AUTO THIN 5 LLC ER JR HERO LYR PREPJ SCR MNL RESCR PHYS THERAPEUT 91469 JOSE GARCIA IC PX 1/> 5 [facility] AREAS INC INC EACH 15 MIN EXERCISES APPL 85514 JOSE GARCIA MODALITY 5 [facility] 1/> AREAS INC INC ELEC STIMJ UNATTENDE D APPL 37830 JOSE GARCIA MODALITY 5 [facility] 1/> AREAS INC INC ULTRASOUN D EA 15 MIN MANUAL 46203 JOSE GARCIA THERAPY 5 [facility] TQS 1/> INC INC REGIONS EACH 15 MINUTES THERAPEUT 01812 JOSE GARCIA IC PX 1/> 5 [facility] AREAS INC INC EACH 15 MIN EXERCISES PHYSICAL 81003 JOSE GARCIA THERAPY 5 [facility] EVALUATIO INC INC N ACUTE 91582 [facility] HEPATITIS 5 Y Y PANEL [facility] SEDIMENTA 73464 [facility] TION RATE 5 Y Y RBC [facility] AUTOMATED C-REACTIV 25102 [facility] E PROTEIN 5 Y Y [facility] COLLECTIO 98215 [facility] N VENOUS 5 Y Y BLOOD [facility] VENIPUNCT URE RADIOLOGI 24926 [facility] C EXAM 5 Y Y SACRLIA [facility] C JOINTS 3/MORE VIEWS RHEUMATOI 99110 [facility] D FACTOR 5 Y Y QUANTITAT [facility] KELSEY RADEX 49678 [facility] HIPS 5 Y Y BILATERAL [facility] 2 VIEWS ANTEROPOS T PELVIS GAUZE A6402 [facility]ED ADVANCED NON-IMPRE 5 TISSUE TISSUE G STERL MANAGEMEN MANAGEMEN 16 SQ/< T T W/O ADHES BORDR TAPE A4450 ADVANCED ADVANCED NON-WATER 5 TISSUE TISSUE PROOF PER MANAGEMEN MANAGEMEN 18 T T SQUARE INCHES HYDROGEL A6248 ADVANCED ADVANCED DRESSING 5 TISSUE TISSUE WOUND MANAGEMEN MANAGEMEN FILLER T T GEL PER FL OZ GAUZE A6266 ADVANCED ADVANCED IMPREG 5 TISSUE TISSUE NOT H2O MANAGEMEN MANAGEMEN SALINE/[place] [address] [facility] [place] MARG[place] HEAD/BRAI 5 RADIOLOGY RHO N W/O CONTRAST MATERIAL RADEX ABD 35109 [facility] [place] COMPL 5 RADIOLOGY RHO AQT ABD W/S/E/D VIEWS 1 VIEW CH GAUZE A6402 ADVANCED ADVANCED NON-IMPRE 5 TISSUE TISSUE G STERL MANAGEMEN MANAGEMEN 16 SQ/< T T W/O ADHES BORDR GAUZE A6266 ADVANCED ADVANCED IMPREG 5 TISSUE TISSUE NOT H2O MANAGEMEN MANAGEMEN SALINE/ZI T T NC PASTE LINR YD HYDROGEL A6248 ADVANCED ADVANCED DRESSING 5 TISSUE TISSUE WOUND MANAGEMEN MANAGEMEN FILLER T T GEL PER FL OZ TAPE A4450 ADVANCED ADVANCED NON-WATER 5 TISSUE TISSUE PROOF PER MANAGEMEN MANAGEMEN 18 T T SQUARE INCHES CUL BACT 33543 ELENA PARKER XCPT 4 [facility] URINE [facility] BLOOD/STO OL AEROBIC ISOL THERAPEUT 81077 [facility] IC 4 [facility] TIC/DX INJECTION SUBQ/IM RADEX 66113 [facility] [place] CORDOVA JAM FOOT 4 RADIOLOGY COMPLETE MINIMUM 3 VIEWS INJECTION J1885 [facility] [address] [place] [address] [facility] EQUIPMEN TROMETHAM INE PER 15 MG PUNCTURE 02086 [facility] ASPIRATIO 4 ZOILA ANNETTE N ABSCESS EMERGENCY HEMATOMA PHYS BULLA/CYS T IMMUNOASS 39478 i3 membraneIU AY 4 [facility] ANALYTE Erecruit QUAL/SEMI QUAL MULTIPLE STEP BLOOD 52200 ARREDONDO ARREDONDO COUNT 4 CO [facility] AUTO&AUTO DIFRNTL WBC RHEUMATOI 36539 MARIA ELENA ARREDONDO D FACTOR 4 CO [facility] KELSEY DRUG 81710 [facility] S[facility] 4 [facility] [place] NORTRIPTY LINE RADIOLOGI 21147 [facility] C 4 EIDER KAMERON EXAMINATI RADIOLOGY ON PELVIS ASSOCIAT 1/2 VIEWS SEDIMENTA 16259 ARREDONDO ARREDONDO TION RATE 4 CO [facility] NON-AUTOM ATED DRUG 76423 [facility] BuzzoolaENNIU SCREEN 4 [facility] [place] IMIPRAMIN E TENS E0720 [place] PAIN [place] PAIN DEVICE 4 CARE & CARE & TWO LEAD [facility] LOCALIZED HIG HIG STIMULATI ON MOLECULAR 90647 [facility] 4 [facility], PATHOLOGY LLC LLC PROCEDURE LEVEL 2 NEEDLE 98612 SONYA DOVER EMG EA 4 PAIN CARE ANNETTE EXTREMTY & W/PARASPI [facility]UE[facility]RA NL AREA COMPLETE NERVE 85360 SONYA DOVER CONDUCTIO 4 PAIN CARE ANNETTE N STUDIES & 13/> [facility] STUDIES LUMB L0627 [place] PAIN [place] PAIN ORTHOSIS 4 CARE & CARE & SAGIT [facility] HIG HIG RIGID A&P PANEL PREFAB THERAPEUT 10797 JENNY ALVARADO IC 4 REGIONAL REGIONAL PROPHYLAC MEDICAL MEDICAL TIC/DX CENTE CENTE INJECTION SUBQ/[place] [address] JENNY ALVARADO THYROID 4 REGIONAL REGIONAL STIMULATI MEDICAL MEDICAL NG CENTE CENTE HORMONE TSH CORTISOL 90278 JENNY ALVARADO TOTAL 4 [facility] MEDICAL MEDICAL CENTE CENTE EGD 30665 EMILAI NIETO TRANSORAL 4 GRE GRE BIOPSY SINGLE/MU LTIPLE SPECIAL 52739 TANOUS, TANOUS, STAIN 4 JR EDW JR EDW GROUP 1 MICROORGA NISMS I&R SPCL STN 66629 TANOUS, TANOUS, 2 I&R 4 JR EDW JR EDW EXCPT MICROORG/ ENZYME/IM CYT ANES 05793 BA GAV BA GAV UPPER GI 4 ENDOS[place] [address] TANOUS, TANOUS, SURG 4 JR EDW JR EDW PATHOLOGY GROSS&DARRELL ROSCOPIC EXAM COLONOSCO 57821 EMILIA NIETO PY FLX DX 4 GRE GRE W/COLLJ SPEC WHEN PFRMD AMB A0427 GERRY GERRY SERVICE 4 JALEESA LAZCANO [facility] COGOVT COGOVT TRANSPORT LEVEL 1 ECG 44993 [facility] CENTRAL ROUTINE 4 YARSANI YARSANI ECG HOSP HOSP W/LEAST 12 LDS TRCG ONLY W/O I&R ECG 75228 BAUM LEL BAUM LEL ROUTINE 4 ECG W/LEAST 12 LDS I&R ONLY GROUND A0425 GERRY GERRY MILEAGE 4 FAYETTE FAYETTE PER URBAN URBAN STATUTE COGOVT COGOVT MILE TECHNETIU A9537 JENNY ALVARADO M TC-99M 4 REGIONAL REGIONAL MEBROFENI MEDICAL MEDICAL N DX UP CENTE CENTE TO 15 MCI COLLECTIO 91095 JENNY ALVARADO N VENOUS 4 REGIONAL REGIONAL BLOOD MEDICAL MEDICAL VENIPUNCT CENTE CENTE URE HEPATOBIL 00131 JENNY ALVARADO SYST 4 REGIONAL REGIONAL IMAG INC MEDICAL MEDICAL GB CENTE CENTE W/PHARMA INTERVENJ COMPREHEN 01430 JENNY ALVARADO SIVE 4 REGIONAL REGIONAL METABOLIC MEDICAL [place] [address] JENNY ALVARADO LIPASE 4 REGIONAL REGIONAL MEDICAL MEDICAL CENTE CENTE INJECTION J2805 JENNY ALVARADO 4 REGIONAL REGIONAL SINCALIDE MEDICAL MEDICAL 5 CENTE CENTE MICROGRAM S BLOOD 89518 JENNY ALVARADO COUNT 4 REGIONAL REGIONAL COMPLETE MEDICAL MEDICAL AUTO&AUTO CENTE CENTE DIFRNTL WBC HPYLORI 45869 JENNY ALVARADO BREATH 4 REGIONAL REGIONAL ANAL MEDICAL MEDICAL UREASE CENTE CENTE ACT NON-RADAC T ISTOPE INJECTION J1100 [place] BRITNEY 4 PAIN CARE IRWIN DEXAMETHO & SONE [facility] SODIUM PHOSPHATE 1 MG FLUOR 68770 [facility] NEEDLE/CA 4 PAIN CARE PAIN CARE TH & & SPINE/PAR [facility] BL[facility] ASPINAL DX/[place] NJX 51975 [place] BRITNEY DX/THER 4 PAIN CARE IRWIN SBST & EPIDURAL/ [facility] SUBARACH LUMBAR/SA CRAL RADEX 07009 [facility] [place] BELIA UPPER GI 4 RADIOLOGY III NICHOLAS W/WO GLUCAGON/ [place] [address] [facility], [facility], ABDOMINAL 4 [employer] TEAM MEMBER [employer] SALES [employer]ENDING TEAM MEMBER REAL JESUS LEE TIME CO HOS CO HOS W/IMAGE LIMITED PH BODY 04773 [place] GILBERT FLUID NOT 4 PAIN CARE ANNETTE & ELSEWHERE [facility] SPECIFIED NDL EMG 2 96596 [facility] XTR W/WO 4 PAIN CARE PAIN CARE RELATED & & PARASPINA BLUEGRA BLUEGRA L AREAS PH BODY 74399 SONYA DOVER FLUID NOT 4 PAIN CARE ANNETTE & ELSEWHERE [facility] SPECIFIED SPECTROPH 60866 SONYA BARGER OTOMETRY 4 PAIN CARE ANALYT & NOT [facility] ELSEWHERE SPECIFIED MRI LOWER 87897 [facility] YEH TRA EXTREM 4 [place] OTH/THN ORTHOPAED JT W/O ICS PLC CONTR MATRL RADEX 89401 [facility] YEH TRA FOOT 3 [place] COMPLETE ORTHOPAED MINIMUM 3 ICS PLC VIEWS SHORT-LAT 49764 [facility] [place] HASS[place] ENCY 3 PAIN CARE PAIN CARE SOMATOSEN & & S EP STD BLUEGRA BLUEGRA LWR LIMBS RADEX 61558 [facility] SPINE 3 EIDER KAMERON THORACOLU RADIOLOGY MBAR ASSOCIAT JUNCTION MIN 2 VIEWS RADEX 22197 [facility], SPINE 3 [employer] TEAM MEMBER [employer] SAL[employer]END[employer] TEAM MEMBER CERVICAL JESUS JESUS 2 OR 3 CO HOS CO HOS VIEWS MRI 94406 SONYA DOVER SPINAL 3 PAIN CARE ANNETTE CANAL & LUMBAR [facility]RA W/O CONTRAST MATERIAL SPECTROPH 07136 SONYA DOVER OTOMETRY 3 PAIN CARE ANNETTE ANALYT & NOT [facility]RA ELSEWHERE SPECIFIED URNLS DIP 20812 SONYA HATCHBERT 3 PAIN CARE ANNETTE STICK/TAB & LET RGNT BLUEGRA AUTO W/O MICROSCOP Y PH BODY 36228 SONYA HATCHBERT FLUID NOT 3 PAIN CARE ANNETTE & ELSEWHERE [facility] SPECIFIED CREATININ 48810 [facility] [place] GILBERT E OTHER 3 PAIN CARE ANNETTE SOURCE & BLUEGRA RADEX 45176 [facility] [place] TOÑO FOOT 3 MEDICAL KRYS COMPLETE IMAGING MINIMUM 3 ASS VIEWS CRTCHS E0114 [facility] UNDARM 3 OTH THAN WOOD PAIR PAD TIP&HNDGR IP PH BODY 11310 SONYA HATCHBERT FLUID NOT 3 PAIN CARE ANNETTE & ELSEWHERE [facility]RA SPECIFIED CREATININ 65753 SONYA GILBERT E OTHER 3 PAIN CARE ANNETTE SOURCE & BLUEGRA URNLS DIP 70734 SONYA HATCHBERT 3 PAIN CARE ANNETTE STICK/TAB & LET RGNT BLUE[facility]RA AUTO W/O MICROSCOP Y SPECTROPH 26206 SONYA DOVER OTOMETRY 3 PAIN CARE ANNETTE ANALYT & NOT BLUEGRA ELSEWHERE SPECIFIED CANE INCL E0100 [facility] CANES 3 ALL MATERIAL ADJUSTBLE /FIX W/TIP NEEDLE 52015 ARACELI STILES AMELIA EMG EA 3 N EXTREMTY NEUROLOGY W/PARASPI NL AREA COMPLETE THERAPEUT 41355 [employer], IC PX 1/> 3 [employer]BER [employer] MEMBER AREAS JESUS JESUS EACH 15 CO HOS CO HOS MIN EXERCISES THERAPEUT 36501 [employer], IC PX 1/> 3 [employer] TEAM MEMBER [employer] TEAM MEMBER AREAS JESUS JESUS EACH 15 CO HOS CO HOS MIN EXERCISES WALKER E0143 [facility] AB[facility] FOLDING 3 WHEELED ADJUSTABL [place] [address] [employer], 1/> AREAS 3 [employer] TE[employer] MEMBER [employer] L[employer] TEAM MEMBER EA 15 JESUS JESUS MIN GAIT CO HOS CO HOS TRAINJ W/STAIR MRI 39488 [facility] [place] SPINAL 3 NOSTICS CANAL INC THORACIC W/[place] [address] [employer], 1/> AREAS 3 [employer] TEAM MEMBER [employer] TEAM MEMBER EA 15 JESUS JESUS MIN GAIT CO HOS CO HOS TRAINJ W/STAIR THERAPEUT 78615 [employer], IC PX 1/> 3 [employer]ES [employer] L[employer] TEAM MEMBER [employer] SALES [employer] LENDING TEAM MEMBER AREAS JESUS JESUS EACH 15 CO HOS CO HOS MIN EXERCISES THERAPEUT 49449 [employer], IC PX 1/> 3 [employer] TEAM MEMBER [employer] SALES [employer] LENDING TEAM MEMBER AREAS JESUS JESUS EACH 15 CO HOS CO HOS MIN EXERCISES CUL BACT 03177 [facility] AEROBIC 3 OF AMERIC ADDL TORI HOLDING METHS HOLDINGS DEFINITIV E EA ISOL CULTURE 39857 [facility] BACTERIAL 3 OF AMERIC TORI HOLDING QUANTTATI HOLDINGS VE COLONY COUNT URINE CULTURE 14117 [facility] BCT 3 OF AMERIC ISOL&PRSM TORI HOLDING PTV ID HOLDINGS ISOLATE EA URINE SUSCEPTIB 16448 [facility] LTY STDY 3 OF AMERIC ANTIMICRB TORI HOLDING IAL HOLDINGS MICRO/AGA R DILUTJ THERAPEUT 94782 [facility] [employer] [facility] INC, IC PX 1/> 3 [employer] L[employer] TEAM MEMBER [employer] SALES [employer] LENDING TEAM MEMBER AREAS JESUS LEE EACH 15 CO HOS CO HOS MIN EXERCISES THERAPEUT 20156 [facility] INC, [facility] INC, IC PX 1/> 3 [employer]ES [employer] L[employer] TEAM MEMBER [employer] SALES AND LENDING TEAM MEMBER AREAS JESUS LEE EACH 15 CO HOS CO HOS MIN EXERCISES PHYSICAL 33564 [facility] [employer] [facility], THERAPY 3 EZPAWN SALES AND LENDING TEAM MEMBER [employer] SALES AND LENDING TEAM MEMBER EVALUATIO JESUS LEE N CO HOS CO HOS Encounters Encounter Start End Date Code Location Performer Type Date [facility] 7 7 [facility] T OFFICE 01662 SONNY CORNELIUSE OUTPATIEN 7 7 VESTA ERVIN VISIT ,PSC 25 MINUTES OFFICE 62103 SONNY DENNIS OUTPATIEN 7 7 Brianna ERVIN MD,PSC 25 MINUTES OFFICE 66645 [facility] OUTPATIEN 7 7 CLINIC T VISIT 15 MINUTES [facility] YARSANI - 7 7 [facility] 50308 [facility] OUT[facility] 7 7 SURGICAL T NEW 45 ASSOCIATE MINUTES S OFFICE 05185 [facility] CORTES- OUTPATIEN 7 7 CLINIC SE T VISIT 15 MINUTES OFFICE 56689 [facility] CORTES- OUTPATIEN 7 7 CLINIC SE T VISIT 15 MINUTES OFFICE 04833 SONNY CARDENAS OUTPATIEN 7 7 Brianna ERVIN MD,PSC 25 MINUTES HOSPITAL YARSANI - 7 7 HEALTH OUTPATIEN BEREA T OFFICE 69643 YARSANI EBONIE OUTPATIEN 7 7 HEALTH T VISIT MEDICAL 40 GROUP MINUTES OFFICE 42065 SONNY DENNIS OUTPATIEN 6 6 Brianna ERVIN MD,PSC 25 MINUTES OFFICE 02845 SONNY DENNIS OUTPATIEN 6 6 JOSELIN ERVIN T VISIT ,PSC 25 MINUTES OFFICE 25481 [facility] CORTES- OUTPATIEN 6 6 CLINIC SE NATHANIEL T VISIT 15 MINUTES OFFICE 85447 SONYA FITZGERAL OUTPATIEN 6 6 PAIN CARE D DARRELL T VISIT & 15 BLUEGRA MINUTES EMERGENCY 94784 [facility] 5 5 [facility] EMERGENCY T VISIT PHYS HIGH/URGE NT SEVERITY [facility]OSP[facility] [place] - 5 5 [facility] T EMERGENCY 68626 [place] 5 5 [facility] T VISIT MODERATE SEVERITY OFFICE 69747 SONYA DO AN OUTPATIEN 5 5 PAIN CARE T VISIT & 15 BLUEGRA MINUTES EMERGENCY 82015 [facility] T VISIT PHYS HIGH/URGE NT SEVERITY OFFICE 64750 [facility] PETTY KAMERON OUTPATIEN 5 5 CLINIC T VISIT 10 MINUTES OFFICE 16954 [facility] PETTY KAMERON OUTPATIEN 5 5 CLINIC T VISIT 15 MINUTES [facility] - 5 5 [facility] T OFFICE 87842 [place] PAIN OZUMBA OUTPATIEN 5 5 CARE & ANDREW T VISIT [facility] 15 HIG MINUTES OFFICE 01074 HASMUKH CORTES- OUTPATIEN 5 5 CLINIC SE NATHANIEL T VISIT 15 MINUTES OFFICE 40005 [place] PAIN OZUMBA OUTPATIEN 5 5 CARE & ANDREW T VISIT [facility] 15 HIG MINUTES OFFICE 15278 SONYA FIELDLIS OUTPATIEN 5 5 PAIN CARE DEM T VISIT & 15 BLUEGRA MINUTES OFFICE 55552 [place] PAIN DANGARIA OUTPATIEN 5 5 CARE & BLAKE T VISIT [facility] 15 HIG MINUTES OFFICE 55105 CHAMBERLA CHAMBERLA OUTPATIEN 5 5 IN [facility]INIC IN [facility] T VISIT 5 PLLC MINUTES HOSPITAL JOSE - 5 5 MEM HOSP OUTPATIEN INC T PERIODIC 35012 CAPO CHAMBERLA PREVENTIV 5 5 IN CLINIC IN [facility] E MED EST PLLC PATIENT 18-39 YRS OFFICE 66703 [place] PAIN DANGARIA OUTPATIEN 5 5 CARE & BLAKE T VISIT [facility] 15 HIG MINUTES HOSPITAL JOSE - 5 5 [facility] 83872 [place] PAIN DANGARIA OUTPATIEN 5 5 CARE & BLAKE T VISIT [facility] 15 HIG MINUTES OFFICE 26354 [facility] LA[facility] FED OUTPATIEN 5 5 T VISIT 15 MINUTES HOSPITAL UNIVERS[facility] - 5 5 Y [facility] T OFFICE 26274 [facility] CONS[facility] 5 5 NURSE SANTINO BARRON/SAY WATSON GR PATIENT 80 MIN OFFICE 64170 [facility] FED OUTPATIEN 5 5 T VISIT 15 MINUTES OFFICE 72635 [facility] MELO OUTPATIEN 5 5 CLINIC T VISIT 15 MINUTES EMERGENCY 29874 [facility] DEPT 5 5 ZOILA MU VISIT EMERGENCY HIGH PHYS SEVERITY& THREAT FUN OFFICE 91116 [facility] OUTPATIEN 5 5 T VISIT 15 MINUTES OFFICE 62066 [facility] OUTPATIEN 5 5 T NEW 30 MINUTES OFFICE 65068 [facility] MELO OUTPATIEN 5 5 CLINIC T VISIT 15 MINUTES OFFICE 56504 [facility] MELO OUTPATIEN 4 4 CLINIC T VISIT 15 MINUTES [facility] [facility] 4 4 [facility] 38486 [facility] 4 4 [facility] EMERGENCY T VISIT PHYS HIGH/URGE NT SEVERITY HOSPITAL ARREDONDO - OTHER 4 4 [facility] EM[facility]GENCY 41948 ARREDONDO 4 4 [facility] T VISIT MODERATE SEVERITY EMERGENCY 41130 [facility] 4 4 [facility] EMERGENCY T VISIT PHYS HIGH/URGE NT SEVERITY OFFICE 71722 [place] PAIN ELISABETH OUTPATIEN 4 4 CARE & LUCIA T VISIT [facility] 15 HIG MINUTES OFFICE 21009 YARSANI TIKHTMAN OUTPATIEN 4 4 NEUROLOGY AMY T VISIT 25 CONSULTAN MINUTES T OFFICE 21426 [place] PAIN ELISABETH OUTPATIEN 4 4 CARE & LUCIA T VISIT [facility] 15 HIG MINUTES OFFICE 13349 TIKHTMAN TIKHTMAN CONSULTAT 4 4 AMY AMY ION NEW/ESTAB PATIENT 80 MIN OFFICE 61588 KENTLADONNAY BRITNEY OUTPATIEN 4 4 PAIN CARE IRWIN T VISIT & 25 BLUEGRA [facility] JENNY - 4 4 [facility] OFF[facility] 84380 EMILIA NIETO OUTPATIEN 4 4 GRE GRE T VISIT 25 MINUTES OFFICE 26898 SONYA DOVER OUTPATIEN 4 4 PAIN CARE ANNETTE T VISIT & 15 BLUEGRA MINUTES EMERGENCY 07498 [facility] 4 4 [facility] EMER[facility]ENC[facility] T VISIT PHYSI HIGH/URGE NT SEVERITY HOSPITAL CENTRAL - 4 4 YARSANI OUTPATIEN HOSP T EMERGENCY 44073 BAUTISTA MCPHERSON 4 4 [facility] T VIS[facility] HIGH/URGE NT SEVERITY OFFICE 04348 KENTLADONNAY ELISABETH OUTPATIEN 4 4 PAIN CARE LUCIA T VISIT & 15 BLUEGRA MINUTES OFFICE 24882 LAINE LAINE OUTPATIEN 4 4 MIAH MIAH T VISIT 25 MINUTES HOSPITAL JENNY - 4 4 REGIONAL OUTPATIEN MEDICAL T CENTE OFFICE 96329 SONYA BARBER OUTPATIEN 4 4 PAIN CARE LUCIA T VISIT & 25 BLUEGRA MINUTES HOSPITAL JENNY - 4 4 REGIONAL OUTPATIEN MEDICAL T CENTE OFFICE 82241 JENNY LAINE CONSULTAT 4 4 REGIONAL MIAH ION PHYSICIAN NEW/ESTAB PRA PATIENT 60 MIN HOSPITAL [facility], - 4 4 [employer] TEAM MEMBER OUTPATIEN JESUS T CO HOS OFFICE 43547 SONYA DOVER OUTPATIEN 4 4 PAIN CARE ANNETTE T VISIT & 25 BLUEGRA MINUTES OFFICE 36457 SONYA BREAUX OUTPATIEN 4 4 PAIN CARE T VISIT & 25 BLUEGRA MINUTES OFFICE 73337 SONYA DOVER OUTPATIEN 4 4 PAIN CARE ANNETTE T VISIT & 25 BLUEGRA MINUTES OFFICE 93623 [facility] YEH TRA OUTPATIEN 4 4 [place] T VISIT ORTHOPAED 15 ICS PLC MINUTES OFFICE 61366 SONYA DOVER OUTPATIEN 4 4 PAIN CARE ANNETTE T VISIT & 25 BLUEGRA MINUTES OFFICE 96017 [facility] YEH TRA OUTPATIEN 4 4 [place] T VISIT ORTHOPAED 15 ICS PLC MINUTES OFFICE 00169 YEH TRA YEH TRA OUTPATIEN 4 4 T VISIT 15 MINUTES OFFICE 10124 SONYA DOVER OUTPATIEN 4 4 PAIN CARE ANNETTE T VISIT & 15 BLUEGRA MINUTES OFFICE 95049 [facility] YEH TRA CONSULTAT 3 3 [place] ION ORTHOPAED NEW/ESTAB ICS PLC PATIENT 60 MIN HOSPITAL [facility], - 3 3 [employer] MEMBER OUTPATIEN JESUS T CO HOS OFFICE 66566 SONYA DOVER OUTPATIEN 3 3 PAIN CARE ANNETTE T VISIT & 15 BLUEGRA MINUTES EMERGENCY 17459 BRUNO QUINTANILLA 3 3 EMERGENCY DEPARTMEN SERVICES T VISIT HIGH/URGE NT SEVERITY OFFICE 99090 SONYA DOVER OUTPATIEN 3 3 PAIN CARE ANNETTE T NEW 30 & MINUTES [facility] OFFICE 48438 [facility] BEATTY OUTPATIEN 3 3 CLINIC HEN T VISIT 15 MINUTES HOSPITAL [facility], - 3 3 [employer] TEAM MEMBER OUTPATIEN JESUS [facility], - 3 3 [employer] TEAM MEMBER OUTPATIEN [facility], - 3 3 [employer] TEAM MEMBER OUTPATIEN JESUS T CO HOS OFFICE 44793 ARACELI CISNEROS OUTPATIEN 3 3 N T VISIT NEUROLOGY 25 MINUTES [facility]OSPITAL [facility], - 3 3 [employer] TEAM MEMBER OUTPATIEN [facility], - 3 3 [employer] TEAM MEMBER OUTPATIEN [facility], - 3 3 [employer] TEAM MEMBER OUTPATIEN JESUS T CO HOS OFFICE 28678 ARACELI WALDROPS OUTPATIEN 3 3 N T NEW 45 NEUROLOGY MINUTES HOSPITAL [facility], - 3 3 [employer] TEAM MEMBER OUTPATIEN [facility], - 3 3 [employer] SALES AND LEND[employer] TEAM MEMBER OUTPATIEN JESUS T CO HOS
--- OUTSIDE RECORDS SUMMARY | 2017-05-22 19:31 | External Medical Summary Rpt | CCD ---
Author Author , ROSE Organization [facility] Address Unknown Phone [email or web address] [facility] Care Team Providers Care Insight Director Name Role Phone ABLECARE, ABLECARE Unavailable Unavailable [facility] Unavailable Unavailable MANAGEMENT, [facility] MANAGEMENT [facility] Unavailable Unavailable MANAGEMENT, [facility] T[facility] MANAGEMENT ALMES, ALMES Unavailable Unavailable BAEHLER, BAEHLER Unavailable Unavailable DENNIS, DENNIS Unavailable Unavailable DENNIS JOSELIN, DENNIS Unavailable Unavailable JOSELIN ERVIN, Unavailable Unavailable ,PSC, SONNY ERVIN MD,PSC [facility] Unavailable Unavailable ORIENT, [facility] Unavailable Unavailable MEDICAL GROUP, [facility] SCIENTOLOGIST NEUROLOGY Unavailable Unavailable INSERTER PROMOTIONAL ITEM, SCIENTOLOGIST NEUROLOGY INSERTER PROMOTIONAL ITEM [facility] Unavailable Unavailable CTR, [facility] Unavailable Unavailable CTR, [facility] LAINE MIAH, LAINE Unavailable Unavailable MIAH LAINE MIAH, LAINE Unavailable Unavailable MIAH PENDLETON ANNETTE, PENDLETON Unavailable Unavailable ANNETTE [facility], Unavailable Unavailable INC, [facility], Unavailable Unavailable INC, [facility] PETTY KAMERON, PETTY KAMERON Unavailable Unavailable [facility] Unavailable Unavailable [facility] CORDOVA JAM, CORDOVA JAM Unavailable Unavailable [facility], Unavailable Unavailable [facility] SEBASTIAN-LUIS ARMSTRONG, Unavailable Unavailable CORTES-VISSuni ARMSTRONG [facility], Unavailable Unavailable [facility] SCIENTOLOGIST [facility], Unavailable Unavailable [facility] SCIENTOLOGIST [facility] Unavailable Unavailable ANESTHESIA, [facility] [place] Unavailable Unavailable [facility] Unavailable Unavailable ASSOC, [facility], Unavailable Unavailable [facility] Un[facility] Un[facility], [facility] Unavailable Unavailable MEDICAL ZAK, JENNY [facility] Unavailable Unavailable PHYSICIAN PRA, [facility], Unavailable Unavailable [facility] TOÑO KRYS, Unavailable Unavailable TOÑO KRYS CINDA LOZANO, Unavailable Unavailable EBONIE RICE Unavailable Unavailable ENA BRA, ENA BRA Unavailable Unavailable DESKINS DIANA, DESKINS Unavailable Unavailable DIANA DO AN, DO AN Unavailable Unavailable [facility], [facility] Unavailable Unavailable CARTER JAM, CARTER JAM Unavailable Unavailable [facility], Unavailable Unavailable [facility], Unavailable Unavailable [facility] LÓPEZ, LÓPEZ Unavailable Unavailable [facility], Unavailable Unavailable [facility] GILBERT ANNETTE, GILBERT Unavailable Unavailable ANNETTE [...] III NICHOLAS, Unavailable Unavailable BELIA III NICHOLAS [facility] Unavailable Unavailable IMAGING ASS, [facility] Unavailable Unavailable [facility] [...] Unavailable Unavailable COGOVT, GERRY FAYETTE URBAN COGOVT [facility] Unavailable Unavailable SERVICES, [facility] Unavailable Unavailable ASSOCIAT, [facility], [facility] [facility] Unavailable Unavailable [facility], [facility], Unavailable Unavailable LLC, [facility], [facility], Unavailable Unavailable LLC, [facility], LLC [facility], Unavailable Unavailable [facility] [...] ANNETTE SARLIS DEM, SARLIS Unavailable Unavailable DEM [facility] Unavailable Unavailable EMERGENCY PHYS, [facility] Unavailable Unavailable EMERGENCY PHYSI, [facility]available Unavailable CENTER, [facility] Unavailable Unavailable [facility]ENTER, [facility] JR NEO EDW, Unavailable Unavailable [facility], Unavailable Unavailable [facility] TIKHTMAN AMY, Unavailable Unavailable TIKHTMPOORNIMA AMY [facility] Unavailable Unavailable ASSOCIATES, [facility], Unavailable Unavailable [facility] SANTINO, WAFFDAIN Unavailable Unavailable SANTINO MALINDA QUINTANILLA, MALINDA QUINTANILLA Unavailable Unavailable STACIE, Unavailable Unavailable STACIE BRITNEY IRWIN, BRITNEY Unavailable Unavailable IRWIN Purpose Continuity of Care Document - 12-01-2012 through 2016 Problems Code Diagnosis DOS Provider Status K208 OTHER 03-09-2017 SCIENTOLOGIST ESOPHAGITIS PHYS SURG CTR R1013 EPIGASTRIC 03-09-2017 [facility] [place] PAIN ANESTHESIA [id number] SPRAIN 02-19-2017 [facility] UNSPECIFIED [facility]ING, SITE LT INC KNEE INITIAL ENCNTR Q16446 PAIN IN 02-10-2017 [facility] KNEE [facility] M2392 UNSPECIFIED 02-05-2017 [facility] INTER[facility], DERANGEMENT INC OF LEFT KNEE R928 OTH ABNORM 01-19-2017 [facility] FIND ON DX IMAG BREAST K219 GASTRO-ESOP 01-06-2017 [facility] [place] H RE[facility]UX RADIOLOGY DISEASE WITHOUT ESOPHAGITIS [id number] PAIN IN 01-06-2017 [facility] [place] LEFT HIP RADIOLOGY M545 LOW BACK 01-06-2017 [facility] [place] RADIOLOG[facility] W81325 SPONDYLOSIS 2017 SONNY W/O ARCADIO, MYELOPATH/R ,PSC ADICULOPATH Y LUMB RGN 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 SONNY CURRENT USE ARCADIO OF OPIATE ,PSC ANALGESIC J101 FLU D/T OTH 10-14-2016 [facility] ID FLU CLINIC VIRUS OTH RESP MANIFESTATI ONS K838 OTHER 09-29-2016 SCIENTOLOGIST SPECIFIED HEALTH DISEASES OF ORIENT BILIARY TRACT R1010 UPPER 09-29-2016 [facility]IN ASSOC UNSPECIFIED R1011 RIGHT UPPER 09-23-2016 [facility] J020 STREPTOCOCC 09-18-2016 [facility] AL CLINIC PHARYNGITIS L089 LOCAL INF 09-18-2016 [facility] THE SKIN & CLINIC SUBCUTANEOU S TISSUE UNS [id number] ADVERSE 09-18-2016 [facility] EFFECT UNS CLINIC SYSTEMIC ABX INITIAL ENCNTR P50872 UNSPECIFIED 08-14-2016 SCIENTOLOGIST OVARIAN HEALTH CYST LEFT ORIENT SIDE R109 UNSPECIFIED 08-14-2016 [facility] ABDOMINAL [facility] PAIN ASSOC G8929 OTHER 08-08-2016 SCIENTOLOGIST CHRON[facility] PA[facility] MEDICAL GROUP M461 SACROILIITI 01-17-[address] S NOT SURGERY ELSEWHERE CENTER CLASSIFIED B46063 UNS ACUTE 09-06-2015 [facility] NONINFECTIV CLINIC E OTITIS EXTERNA RIGHT EAR J0190 ACUTE 09-06-2015 [facility] SINUSITIS CLINIC UNSPECIFIED M5033 OTH CERV 08-06-2015 [place] DISC DEGEN PAIN CARE & CERVICOTHOR [facility] ACIC REGION M5136 OTH 08-06-2015 [place] INTERVERTEB PAIN CARE & RAL DISC [facility] DEGEN LUMBAR REGION M542 CERVICALGIA 08-06-2015 [place] [facility] I86932 PAIN IN 06-18-2015 [facility] [place] RIGHT RADIOLOGY SHOULDER I14529 PAIN IN 06-18-2015 [facility] [place] RIGHT WRIST RADIOLOGY A01891 PAIN IN 06-18-2015 [facility] [place] RIGHT KNEE RADIOLOGY W70317 PAIN IN 06-18-2015 [facility] [place] RIGHT ANKLE RADIOLOGY Q27197 PAIN IN 06-18-2015 [facility] [place] RIGHT HAND RADIOLOGY V46777 PAIN IN 06-18-2015 [facility] [place] RIGHT FOOT RADIOLOGY G26298U CONTUSION 06-18-2015 [facility] RIGHT N EMERGENCY SHOULDER PHYS INITIAL ENCOUNTER U69301E CONTUSION 06-18-2015 [place] UNSPECIFIED [facility] INITIAL ENCOUNTER B15874J CONTUSION 06-18-2015 [place] [facility] UNSPECIFIED HOSPITAL WRIST INITIAL ENCOUNTER T57196W CONTUSION 06-18-2015 [facility] HAND PHYS INITIAL ENCOUNTER J64964F CONTUSION 06-18-2015 [facility]PEC[facility]PITAL HAND INITIAL ENCOUNTER K8241NQ CONTUSION 06-18-2015 [facility] KNEE INITIAL ENCOUNTER I8973AL CONTUSION 06-18-2015 [facility] KNEE PHYS INITIAL ENCOUNTER E4186DV CONTUSION 06-18-2015 [facility]IED [facility]PITAL ANKLE INITIAL ENCOUNTER D0078YJ CONTUSION 06-18-2015 [facility]ENC[facility] ANKLE PHYS INITIAL ENCOUNTER E3689IA CONTUSION 06-18-2015 [facility]ITAL FOOT INITIAL ENCOUNTER E23JSLI UNSPECIFIED 06-18-2015 [facility] FALL N EMERGENCY INITIAL PHYS ENCOUNTER G894 CHRONIC 06-11-2015 [place] [facility]IN CARE & SYNDROME [facility] J189 PNEUMONIA 05-31-2015 [facility] UNSPECIFIED N EMERGENCY ORGANISM PHYS R05 COUGH 05-31-2015 [facility] N EMERGENCY PHYS Z09 ENC F/U 05-30-2015 [facility] EXAM AFTR CLINIC CMPL TX OTH THAN MALIG NEOPLSM R0602 SHORTNESS 05-28-2015 [facility] OF BREATH CLINIC R062 WHEEZING 05-28-2015 [facility] 70670 DISPLCMT 04-17-2015 [place] PA[place] LUMBAR CARE & INTERVERT [facility] DISC W/O HIG MYELOPATHY 00940 DEGEN 04-17-2015 [place] LUMBAR/LUMB CARE & OSACRAL [facility] INTERVERTEB HIG RAL DISC 7244 THORACIC/SUDHA 04-17-2015 [place] PA[place] MBOSACRAL CARE & NEURITIS/RA [facility] DICULITIS HIG UNSPEC 7248 OTHER 04-17-2015 [place] SYMPTOMS CARE & REFERABLE [facility] TO BACK HIG 4619 ACUTE 04-13-2015 [facility] SINUSITIS, CLINIC UNSPECIFIED 57067 OTHER 04-13-2015 [facility] MALAISE AND CLINIC FATIGUE 80571 PALLOR 04-13-2015 [facility] 79203 PAINFUL 04-13-2015 [facility] 76640 UNSPECIFIED 02-26-2015 [place] PA[place] CARE & ARTHROPATHY [facility] PELVIC HIG REGION AND THIGH 7202 SACROILIITI 02-26-2015 [place] PA[place] S NOT CARE & ELSEWHERE [facility] CLASSIFIED HIG 7242 LUMBAGO 02-26-2015 [place] [facility] [facility] & [facility] HIG 19357 OTHER 01-23-2015 [facility] CHRONIC HEALTH, [facility] PAIN V7109 OBSERVATION 01-23-2015 [facility] OF OTHER HEALTH, [facility] SUSPECTED MENTAL CONDITION V5869 LONG-TERM 11-28-2014 [facility] (CURRENT) TORI USE OF HOLDINGS OTHER MEDICATIONS 6202 OTHER AND 11-24-2014 [facility] UNSPECIFIED CLINIC OVARIAN PLLC CYST 92900 DEGEN 11-24-2014 [facility]AC[facility]/TH [facility] ORACOLUMBAR INC INTERVERTEB RAL DISC 7241 PAIN IN 11-24-2014 [facility] SPINE INC 35006 SPASM OF 11-24-2014 [facility] INC 16498 ABDOMINAL 11-24-2014 [facility] PAIN, LEFT CLINIC LOWER PLLC QUADRANT V571 OTHER 11-24-2014 [facility] PHYSICAL [facility] THERAPY INC 6259 UNSPEC 11-22-2014 [facility] SYMPTOM CLINIC ASSOC PLLC W/FEMALE GENITAL ORGANS V7231 ROUTINE 11-21-2014 [facility], GYNECOLOGIC [facility] AL EXAMINATION 7213 LUMBOSACRAL 11-20-2014 [place] PA[place] [facility]ARE & SPONDYLOSIS [facility] WITHOUT HIG MYELOPATHY 3558 UNSPECIFIED 09-25-2014 [facility] MONONEURITI S OF LOWER LIMB 47881 ULCER OF 09-25-2014 [facility] HEEL AND MIDFOOT 7092 SCAR 09-25-2014 [facility] CONDITION AND FIBROSIS OF SKIN 40535 REFLEX 09-08-2014 [facility] DYSTROPHY OF THE LOWER LIMB 07502 UNSPEC 09-08-2014 [facility] INTRAPELV SERV PROTRUSION FOUNDATION ACETAB PELV RGN&THI 87819 EFFUSION OF 09-08-2014 [facility] [place] HUMAN RESOURCE SSD JOINT 48620 PAIN IN 09-08-2014 [facility] JOINT, [place] HUMAN RESOURCE SSD LOWER LEG 7226 DEGENERATIO 09-08-2014 [facility] INTERVERTEB RAL DISC SITE UNSPEC 7291 UNSPECIFIED 09-08-2014 [facility] AND MYOSITIS 7295 PAIN IN 09-08-2014 [facility] TISSUES OF LIMB 30353 PRESSURE 09-04-2014 [facility] HEEL TISSUE MANAGEMENT 9172 FOOT&TOE 08-28-2014 [facility] BLISTER WITHOUT MENTION OF INFECTION 2768 HYPOPOTASSE 08-24-2014 [facility] MISSAEL N EMERGENCY PHYS 4580 ORTHOSTATIC 08-24-2014 [facility] EMERGENCY HYPOTENSION PHYS 87904 UNSPECIFIED 08-24-2014 [facility] N EMERGENCY CONSTIPATIO PHYS N 7802 SYNCOPE AND 08-24-2014 [facility] [place] COLLAPSE RADIOLOGY 29051 NAUSEA WITH 08-24-2014 [facility] VOMITING [facility]INIC 7881 DYSURIA 08-24-2014 [facility] 7098 OTHER 08-02-2014 [facility] SPECIFIED CLINIC DISORDER OF SKIN V679 UNSPECIFIED 07-24-2014 [facility] FOLLOW-UP CLINIC EXAMINATION 67089 UNSPECIFIED 07-21-2014 [facility] REFLEX N EMERGENCY SYMPATHETIC PHYS DYSTROPHY 6827 CELLULITIS 07-21-2014 [facility] ABSCESS N EMERGENCY OF FOOT PHYS EXCEPT TOES 31173 ULCER OF 07-13-2014 [facility] OTHER PART N EMERGENCY OF FOOT PHYS 13946 OSTEOARTHRO 07-13-2014 [facility] UNSPEC RADIOLOGY GEN/LOC ASSOCIAT PELV REGION&THIG H 7243 SCIATICA 07-13-2014 [facility] 7245 UNSPECIFIED 07-13-2014 [facility] 7820 DISTURBANCE 05-02-2014 SCIENTOLOGIST OF SKIN NEUROLOGY SENSATION INSERTER PROMOTIONAL ITEM 04119 ESOPHAGEAL 03-07-2014 [facility] REFLUX GRE 69624 REFLUX 02-09-2014 JR NEO ESOPHAGITIS EDW 80829 NAUSEA 02-09-2014 [facility] ALONE GRE 13751 VOMITING 02-09-2014 [facility] ALONE GRE 61412 ABDOMINAL 02-09-2014 [facility] PAIN, UNSPECIFIED SITE 31678 DEHYDRATION 02-03-2014 [facility] N EMERGENCY PHYSI 49424 VOLUME 01-29-2014 [facility] DEPLETION SCIENTOLOGIST UNSPECIFIED HOSP 7804 DIZZINESS 01-29-2014 [facility] AND SCIENTOLOGIST GIDDINESS HOSP 26032 ABDOMINAL 01-29-2014 [facility] PAIN, SCIENTOLOGIST EPIGASTRIC HOSP 7934 NONSPECIFIC 01-10-2014 [facility] MIAH ABN FINDING RAD & OTH EXAM GI TRACT 85750 ABDOMINAL 01-02-2014 JENNY PAIN RIGHT REGIONAL UPPER MEDICAL QUADRANT CENTE 7933 NONSPECIFIC 01-02-2014 [facility] ABN FINDNG REGIONAL RAD&OTH MEDICAL EXAM BILARY CENTE TRCT 85369 FEVER 12-13-2013 [facility] UNSPECIFIED REGIONAL PHYSICIAN PRA 5758 OTHER 11-30-2013 SALAZAR ADHIKARI SPECIFIED DISORDER OF GALLBLADDER 59564 SPONDYLOSIS 11-02-2013 [place] WITH PAIN CARE & MYELOPATHY [facility] LUMBAR REGION 3559 MONONEURITI 10-03-2013 [facility] [place] S OF ORTHOPAEDIC UNSPECIFIED S PLC SITE 28201 PAIN IN 10-03-2013 [facility] [place] JOINT, ORTHOPAEDIC ANKLE AND S PLC FOOT 7224 DEGENERATIO 09-05-2013 [place] N OF PAIN CARE & CERVICAL [facility] INTERVERTEB RAL DISC 6869 UNSPEC 08-15-2013 [facility] TRA LOCAL INFECTION SKIN&SUBCUT ANEOUS TISSUE 51222 SCOLIOSIS , 07-07-2013 [facility], IDIOPATHIC SLURRY CONTROL TENDER [place] 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 [facility], FUSION OF SLURRY CONTROL TENDER SPINE [facility] 57406 SPINAL STEN 06-13-2013 [place] LUMB REG PAIN CARE & W/O [facility] NEUROGENIC CLAUDICATIO N 08713 UNSPECIFIED 05-20-2013 [facility] SITE OF EMERGENCY ANKLE SERVICES SPRAIN AND STRAIN E8889 UNSPECIFIED 05-20-2013 [place] [facility] 3441 PARAPLEGIA 04-19-2013 [facility] 30145 OTH 01-04-2013 [facility] ETAL SX REFERABLE LIMBS OTH 27716 SWELLING OF 01-03-2013 [facility], LIMB SLURRY CONTROL TENDER [facility] HOS 7292 UNSPECIFIED 12-16-2012 NEURODIAGNO NEURALGIA [...] 17 17 29 FA -P 2 98 MS SE LY ER UG 5- 12 0 MG TA B Procedures Procedure DOS Code Location Performer Comment ANES 54344 [facility] UPPER GI 7 [place] ENDOSCOPY ANESTHESI PROXIMAL A TO DUODENUM EGD 75127 SCIENTOLOGIST SCIENTOLOGIST TRANSORAL 7 PHYS SURG PHYS SURG BIOPSY CTR CTR SINGLE/MU LTIPLE KNEE L1812 [facility] ORTHOSIS 7 BRACING, BRACING, ELASTIC INC INC WITH JOINTS PREFAB ADD LOW L2795 [facility] EXTREM 7 BRACING, BRACING, ORTHOTIC INC INC KNEE [facility] FULL KNEECAP MRI ANY 18733 ELENA YoungT LOWER 7 [facility] W/O CONTRAST MATRL KO ELAST L1820 [facility] W/CONDYLR 7 BR[facility], BRACING, PADS&JNT INC INC PRFAB INCL FIT&ADJ DIAGNOSTI G0206 [address] HY INCL CAD WHEN PERF; UNI RADEX 65288 [facility] [place] [facility]AL[place]AN SPINE 7 RADIOLOGY LUMBOSACR AL MINIMUM 4 VIEWS RADEX 37574 [facility] [place] [facility] ESOPHAGUS 7 RADIOLOGY RADEX HIP 16566 [facility] [place] GALVAN 7 RADIOLOGY UNILATERA L WITH PELVIS 2-3 VIEWS RADIOLOGI 70750 [facility] [place] [facility] C 7 RADIOLOGY EXAMINATI ON KNEE 3 VIEWS BLOOD 44074 SONNY DENNIS COUNT 7 BRETT ERVIN MD,PSC AUTO&[place] [address] SONNY DENNIS GLUTAMYLT 7 HECTOR ERVIN MD,PSC GAMMA COLLECTIO 07237 SONNY DENNIS N VENOUS 7 ARCADIO ERVIN BLOOD ,PSC ,PSC VENIPUNCT URE COMPREHEN 40799 SONNY DENNIS SIVE 7 MELY ERVIN MD,PSC PANEL DRUG TEST 02120 SONNY DENNIS PRSMV 7 ROSA ISELA ERVIN MD,PSC CHEMISTRY ANALYZERS MOD SED 07848 SONNY DENNIS SAME 7 ARCADIO ERVIN, PHYS/QHP ,PSC ,PSC INITIAL 15 MINS 5/> YRS DSTR 48410 SONNY ROSS NROLYTC 7 MARANDA ERVIN MD,PSC PARVERTEB FCT SNGL LMBR/SACR AL COLLECTIO 72484 SCIENTOLOGIST SCIENTOLOGIST N VENOUS 7 [facility] BLOOD [facility] VENIPUNCT URE COMPREHEN 75745 SCIENTOLOGIST SCIENTOLOGIST SIVE 7 [facility] METABOLIC [facility] [address] SCIENTOLOGIST SCIENTOLOGIST GLUTAMYLT 7 [facility] RASE [facility] [place] [address] [facility] ABDOMINAL 7 RADIOLOGY REAL ASSOC TIME W/IMAGE LIMITED BLOOD 97671 SCIENTOLOGIST SCIENTOLOGIST COUNT 7 [facility] COMPLETE [facility] AUTO&[place] [address] SCIENTOLOGIST SCIENTOLOGIST LIPASE 7 [facility] [place] [address] [facility] LÓPEZ ABDOMEN & 7 RADIOLOGY PELVIS ASSOC W/CONTRAS T MATERIAL LOCM Q9967 SCIENTOLOGIST SCIENTOLOGIST 300-399 7 [facility] MG/ML [facility] IODINE CONCENTRA TION PER ML COLLECTIO 33988 DENNIS DENNIS N VENOUS 6 HOLLAND ERVIN MD,PSC VENIPUNCT URE COMPREHEN 18486 DENNIS DENNIS SIVE 6 MELY ERVIN MD,PSC PANEL DRUG TEST G0479 DENNIS DENNIS 6 ARCADIO, PRESUMP;Azael SANTIAGO,[facility] [place]STRUMENT [place] [address] DENNIS DENNIS GLUTAMYLT 6 HECTOR ERVIN MD,[place] [address] DENNIS DENNIS PHOSPHORU Modesta HERNANDEZ MD,PSC INORGANIC BILIRUBIN 74100 DENNIS DENNIS DIRECT Donita ERVIN MD,PSC BLOOD 60103 DENNIS DENNIS COUNT 6 BRETT ERVIN MD,PSC AUTO&[place]RNTL [place]BC NJX 05408 [facility] DX/THER [address] AGT PVRT SURGERY SURGERY FACET JT CENTER CENTER LMBR/SAC 1 LEVEL DRUG TEST G0479 DENNIS DENNIS 6 JOSELIN ERVIN PRESUMP;Azael SANTIAGO,PSC [place] [address] EDNNIS DENNIS GLUTAMYLT 6 JOSELIN ERVIN MD,PSC GAMMA COMPREHEN 08936 DENNIS DENNIS SIVE 6 JOSELIN ERVIN MD,PSC PANEL COLLECTIO 93278 DENNIS DENNIS N VENOUS 6 JOSELIN ERVIN MD,PSC VENIPUNCT URE BLOOD 82166 DENNIS DENNIS COUNT 6 JOSELIN ERVIN MD,PSC AUTO&AUTO DIFRNTL WBC BILIRUBIN 08318 DENNIS DENNIS DIRECT 6 JOSELIN ERVIN MD,[place] [address] DENNIS DENNIS PHOSPHORU 6 JOSELIN ERVIN MD,PSC INORGANIC MODERATE 82759 SONNY ROSS SEDATJ 6 RODY ERVIN SAME, MD,PSC PHYS/QHP 5/>YRS INIT 30 MIN NJX 21077 SONNY ROSS DX/THER 6 RODY ERVIN PVRT ,PSC FACET JT LMBR/SAC 2ND LEVEL NJX 40490 [facility] DX/THER [address] AGT PVRT SURGERY SURGERY FACET JT CENTER CENTER LMBR/SAC 1 LEVEL INJ PROC G0260 [facility] SI [address] JNT;ANES SURGERY SURGERY STEROID&/ CENTER CENTER [place] AGT[place] [address] SONNY ROSS JOINT 6 RODY ERVIN MD,PSC Y&/ANES/S TEROID W/PEARL RADEX 41297 [facility] [place] M[facility]ET[place] SPINE 5 RADIOLOGY RHO LUMBOSACR AL 2/3 VIEWS NONCOVERE A9270 [facility] MAC[facility] D ITEM OR 5 [facility] RADEX 52015 [facility] [place] HAND 5 RADIOLOGY RHO MINIMUM 3 VIEWS RADEX 60109 [facility] [place] ANKLE 5 RADIOLOGY RHO COMPLETE MINIMUM 3 VIEWS RADEX 63811 [facility] [place] SHOULDER 5 RADIOLOGY RHO COMPLETE MINIMUM 2 VIEWS RADEX 43252 [facility] [place] FOOT 5 RADIOLOGY RHO COMPLETE MINIMUM 3 VIEWS RADEX 88816 [facility] [place] WRIST 5 RADIOLOGY RHO COMPLETE MINIMUM 3 VIEWS THERAPEUT 72172 [facility] 5 [facility] TIC/DX INJECTION SUBQ/IM RADIOLOGI 55295 [facility] [place] C 5 RADIOLOGY RHO EXAMINATI ON KNEE 3 VIEWS BLOOD 89207 [facility] MACI COUNT [address] [place] [address] AUTO&AUTO DIFRNTL WBC RADIOLOGI 76245 [facility] C EXAM [address] VIEWS FRONTAL&L ATERAL COLLECTIO 65945 [facility] N VENOUS 5 [facility] VENIPUNCT URE COMPREHEN 05204 [facility] SIVE [facility] [place] G60[address] [place] [facility] COC[facility] 5 PAIN CARE PAIN CARE OR & & METABOLIT [facility] E ASSAY OF G6031 [place] OZUMBA BENZODIAZ 5 PAIN CARE ANDREW EPINES & [facility] OPIATE G6056 [place] OZUM[facility] DRUG AND 5 PAIN CARE ANDREW METABOLIT & ES EACH [facility] PROCEDURE INJECTION J0696 [facility] CORTES- [address] [facility] CEFTRIAXO NE SODIUM PER 250 MG THERAPEUT 23965 [facility] CORTES- IC [address] [facility] [facility] PROPHYLAC TIC/DX INJECTION SUBQ/IM INJECTION J1100 [place] PAIN 5 CARE & CARE & DEXAMETHO BLUE[place]ASS BLUEGRASS SONE HIG HIG SODIUM PHOSPHATE 1 MG IMMUNOASS 12845 MILLENNIU MILLENNIU AY 5 [facility], ANALYTE LLC LLC QUAL/SEMI QUAL MULTIPLE STEP MRI 82504 [place] PAIN [place] SPINAL 5 CARE & III NICHOLAS CANAL BLUEGRASS LUMBAR HIG W/O CONTRAST MATERIAL ASSAY OF G6032 MILLENNIU MILLENNIU DESIPRAMI 5 [facility], NE LLC LLC ASSAY OF G6037 MILLENNIU MILLENNIU NORTRIPTY 5 [facility], LINE [facility] LLC ASSAY OF G6044 [place] COCAINE 5 CARE & CARE & OR [place] BLUEGRASS METABOLIT [place]IG HIG E ASSAY OF G6036 MILLENNIU MILLENNIU IMIPRAMIN 5 [facility], E LLC LLC DRUG 37823 MILLENNIU MILLENNIU SCREEN 5 [facility], QUANTITAT LLC LLC KELSEY PHENOBARB ITAL ALKALOIDS G6041 MILLENNIU MILLENNIU URINE 5 [facility], [facility] LLC KELSEY ASSAY OF G6030 MILLENNIU MILLENNIU AMITRIPTY 5 [facility] LLC APPL 42423 JOSE GARCIA MODALITY 5 [facility] 1/> AREAS INC INC ULTRASOUN D EA 15 MIN THERAPEUT 43303 JOSE GARCIA IC PX 1/> 5 [facility] ARE[facility] INC INC EACH 15 MIN EXERCISES APPL 27750 JOSE GARCIA MODALITY 5 [facility] HOS[facility] MEM [...] 5 [facility] EPINES [facility] CREATININ 90479 LAB JUAN LAB JUAN E OTHER 5 [facility]I T[facility] SOURCE [facility]INGS HOLDINGS 80525 CHAMBERLA CHAMBERLA TRANSVAGI 5 IN [facility]IN[facility] IN [facility] NAL PLLC THERAPEUT 79218 JOSE GARCIA IC PX 1/> 5 [facility] AREAS INC INC EACH 15 MIN EXERCISES DUP-SCAN 33934 CHAMBERLA CHAMBERLA ARTL CARLI 5 IN CLINIC IN [facility] ABDL/PEL/ PLLC SCROT&/RP R ORGN LMT CYTP C/V 98122 P&C LABS, PICKLESIM AUTO THIN 5 LLC ER JR HERO LYR PREPJ SCR MNL RESCR PHYS THERAPEUT 49387 JOSE GARCIA IC PX 1/> 5 [facility] AREAS INC INC EACH 15 MIN EXERCISES APPL 23240 JOSE GARCIA MODALITY 5 [facility]OS[facility] 1/> AREAS INC INC ELEC STIMJ UNATTENDE D APPL 35754 JOSE GARCIA MODALITY 5 [facility] 1/> AREAS INC INC ULTRASOUN D EA 15 MIN MANUAL 07068 JOSE GARCIA THERAPY 5 [facility] TQS 1/> INC INC REGIONS EACH 15 MINUTES THERAPEUT 61635 JOSE GARCIA IC PX 1/> 5 [facility] AREAS INC INC EACH 15 MIN EXERCISES PHYSICAL 36423 JOSE GARCIA THERAPY 5 [facility] EVALUATIO INC INC N ACUTE 00772 [facility] HEPATITIS 5 Y Y PANEL [facility] SEDIMENTA 54044 [facility] TION RATE 5 Y Y RBC [facility] AUTOMATED C-REACTIV 58973 [facility] E PROTEIN 5 Y Y [facility] COLLECTIO 79678 [facility] N VENOUS 5 Y Y BLOOD [facility] VENIPUNCT URE RADIOLOGI 85681 [facility] C EXAM 5 Y Y SACRLIA [facility] C JOINTS 3/MORE VIEWS RHEUMATOI 43050 [facility] D FACTOR 5 Y Y QUANTITAT [facility] KELSEY RADEX 95745 [facility] HIPS 5 Y Y BILATERAL [facility] [facility] 2 VIEWS ANTEROPOS T PELVIS GAUZE [...] [place] [address] [facility] [place] HEAD/BRAI 5 RADIOLOGY RHO N W/O CONTRAST MATERIAL RADEX ABD 58217 [facility] [place] COMPL 5 RADIOLOGY RHO [...] 18 T T SQUARE INCHES CUL BACT 46766 ELENA PARKER XCPT 4 [facility] BLOOD/STO OL AEROBIC ISOL THERAPEUT 35276 [facility] IC 4 [facility] TIC/DX INJECTION SUBQ/IM RADEX 06437 [facility] [place] CORDOVA JAM FOOT 4 RADIOLOGY COMPLETE MINIMUM 3 VIEWS INJECTION J1885 [facility] [address] [place] [address] [facility] [place] [facility] EQUIPMEN TROMETHAM INE PER 15 MG PUNCTURE 40415 [facility] ASPIRATIO 4 ZOILA ANNETTE N ABSCESS EMERGENCY HEMATOMA PHYS BULLA/CYS T IMMUNOASS 21357 ComparaOnlineIU AY 4 [facility]ENTERAvalon Solutions Group ANALYTE bMobilized QUAL/SEMI QUAL MULTIPLE STEP BLOOD 59740 ARREDONDO ARREDONDO COUNT 4 CO [facility] AUTO&AUTO DIFRNTL WBC RHEUMATOI 75342 MARIA ELENA ARREDONDO D FACTOR 4 CO [facility] KELSEY DRUG 08284 [facility] HOSPITALChaikin Stock ResearchIU SCREEN 4 [facility] CENTERBlaBlaCar [place] NORTRIPTY LINE RADIOLOGI 29181 [facility] C 4 EIDER KAMERON EXAMINATI RADIOLOGY ON PELVIS ASSOCIAT 1/2 VIEWS SEDIMENTA 25295 ARREDONDO ARREDONDO TION RATE 4 CO [facility] NON-AUTOM ATED DRUG 31445 [facility] HOSPITALThe Knowland GroupU [place] NetworksENNIU SCREEN 4 [facility]ENTERButton LLC [place] IMIPRAMIN E TENS E0720 [place] PA[place] DEVICE 4 CARE & CARE & TWO LEAD [facility] LOCALIZED HIG HIG STIMULATI ON MOLECULAR 14415 [facility] 4 [facility], PATHOLOGY LLC LLC PROCEDURE LEVEL 2 NEEDLE 94307 SONYA DOVER EMG EA 4 PAIN CARE ANNETTE EXTREMTY & W/PARASPI BLUE[facility]RA NL AREA COMPLETE NERVE 11788 SONYA DOVER CONDUCTIO 4 PAIN CARE ANNETTE N STUDIES & 13/> [facility] STUDIES LUMB L0627 [place] PAIN ORTHOSIS 4 CARE & CARE & SAGIT [facility] HIG HIG RIGID A&P PANEL PREFAB THERAPEUT 80345 JENNY ALVARADO IC 4 REGIONAL REGIONAL PROPHYLAC MEDICAL MEDICAL TIC/DX CENTE CENTE INJECTION SUBQ/[place] [address] JENNY ALVARADO THYROID 4 REGIONAL REGIONAL STIMULATI MEDICAL MEDICAL NG CENTE CENTE HORMONE TSH CORTISOL 38514 JENNY ALVARADO TOTAL 4 REGIONAL REGIONAL MEDICAL MEDICAL CENTE CENTE EGD 20297 EMILIA NIETO TRANSORAL 4 GRE GRE BIOPSY SINGLE/MU LTIPLE SPECIAL 14000 TANOUS, TANOUS, STAIN 4 JR EDW JR EDW GROUP 1 MICROORGA NISMS I&R SPCL STN 00847 TANOUS, TANOUS, 2 I&R 4 JR EDW JR EDW EXCPT MICROORG/ ENZYME/IM CYT ANES 57781 BA GAV BA GAV UPPER GI 4 ENDOS[place] [address] TANOUS, TANOUS, SURG 4 JR EDW JR EDW PATHOLOGY GROSS&DARRELL ROSCOPIC EXAM COLONOSCO 39042 EMILIA NIETO PY FLX DX 4 GRE GRE W/COLLJ SPEC WHEN PFRMD AMB A0427 GERRY GERRY SERVICE 4 JALEESA LAZCANO [facility]ERG[facility] COGOVT COGOVT TRANSPORT LEVEL 1 ECG 06733 [facility] CENTRAL ROUTINE 4 SCIENTOLOGIST SCIENTOLOGIST ECG HOSP HOSP W/LEAST 12 LDS TRCG ONLY W/O I&R ECG 21891 BAUM LEL BAUM LEL ROUTINE 4 ECG W/LEAST 12 LDS I&R ONLY GROUND A0425 GERRY GERRY MILEAGE 4 FAYETTE FAYETTE PER URBAN URBAN STATUTE COGOVT COGOVT MILE TECHNETIU A9537 JENYN ALVARADO M TC-99M 4 REGIONAL REGIONAL MEBROFENI MEDICAL MEDICAL N DX UP CENTE CENTE TO 15 MCI COLLECTIO 73412 JENNY ALVARADO N VENOUS 4 REGIONAL REGIONAL BLOOD MEDICAL MEDICAL VENIPUNCT CENTE CENTE URE HEPATOBIL 31468 JENNY ALVARADO SYST 4 REGIONAL REGIONAL IMAG INC MEDICAL MEDICAL GB CENTE CENTE W/PHARMA INTERVENJ COMPREHEN 80433 JENNY ALVARADO SIVE 4 REGIONAL REGIONAL METABOLIC MEDICAL [place] [address] JENNY ALVARADO LIPASE 4 REGIONAL REGIONAL MEDICAL MEDICAL CENTE CENTE INJECTION J2805 JENNY ALVARADO 4 REGIONAL REGIONAL SINCALIDE MEDICAL MEDICAL 5 CENTE CENTE MICROGRAM S BLOOD 31486 JENNY ALVARADO COUNT 4 REGIONAL REGIONAL COMPLETE MEDICAL MEDICAL AUTO&AUTO CENTE CENTE DIFRNTL WBC HPYLORI 74169 JENNY ALVARADO BREATH 4 REGIONAL REGIONAL ANAL MEDICAL MEDICAL UREASE CENTE CENTE ACT NON-RADAC T ISTOPE INJECTION J1100 [place] BRITNEY 4 PAIN CARE IRWIN DEXAMETHO & SONE [facility] SODIUM PHOSPHATE 1 MG FLUOR 35189 [facility] NEEDLE/CA 4 PAIN CARE PAIN CARE TH & & SPINE/PAR [facility] BL[facility] ASPINAL DX/THER ADDON NJX 28031 [place] BRITNEY DX/THER 4 PAIN CARE IRWIN SBST & EPIDURAL/ [facility] SUBARACH LUMBAR/SA CRAL RADEX 67697 [facility] [place] BELIA UPPER GI 4 RADIOLOGY III NICHOLAS W/WO GLUCAGON/ [place] [address] [facility], [facility], ABDOMINAL 4 SLURRY CONTROL TENDER SLURRY CONTROL TENDER REAL JESUS LEE TIME CO HOS CO HOS W/IMAGE LIMITED PH BODY 25135 [place] GILBERT FLUID NOT 4 PAIN CARE ANNETTE & ELSEWHERE [facility] SPECIFIED NDL EMG 2 51626 [facility] XTR W/WO 4 PAIN CARE PAIN CARE RELATED & & PARASPINA BLUE[facility]RA BLUEGRA L AREAS PH BODY 66445 SONYA DOVER FLUID NOT 4 PAIN CARE ANNETTE & ELSEWHERE [facility] SPECIFIED SPECTROPH 67024 SONYA BARGER OTOMETRY 4 PAIN CARE ANALYT & NOT [facility] ELSEWHERE SPECIFIED MRI LOWER 54000 [facility] YEH TRA EXTREM 4 [place] OTH/THN ORTHOPAED JT W/O ICS PLC CONTR MATRL RADEX 40642 [facility] TRA FOOT 3 [place] COMPLETE ORTHOPAED MINIMUM 3 ICS PLC VIEWS SHORT-LAT 23895 [facility] HASSAN ENCY 3 PAIN CARE PAIN CARE SOMATOSEN & & S EP STD BLUE[facility]RA BLUEGRA LWR LIMBS RADEX 01439 [facility] SPINE 3 EIDER KAMERON THORACOLU RADIOLOGY MBAR ASSOCIAT JUNCTION MIN 2 VIEWS RADEX 02156 [facility], [facility], SPINE 3 SLURRY CONTROL TENDER SLURRY CONTROL TENDER CERVICAL JESUS JESUS 2 OR 3 CO HOS CO HOS VIEWS MRI 65104 SONYA DOVER SPINAL 3 PAIN CARE ANNETTE CANAL & LUMBAR BL[facility]RA W/O CONTRAST MATERIAL SPECTROPH 20000 SONYA DOVER OTOMETRY 3 PAIN CARE ANNETTE ANALYT & NOT BL[facility]RA ELSEWHERE SPECIFIED URNLS DIP 13248 SONYA HATCHBERT 3 PAIN CARE ANNETTE STICK/TAB & LET RGNT BLUEGRA AUTO W/O MICROSCOP Y PH BODY 52676 SONYA HATCHBERT FLUID NOT 3 PAIN CARE ANNETTE & ELSEWHERE [facility] SPECIFIED CREATININ 48647 [facility] GILBERT E OTHER 3 PAIN CARE ANNETTE SOURCE & BLUEGRA RADEX 47449 [facility] HOLD[facility]ILLETammie TOÑO FOOT 3 MEDICAL KRYS COMPLETE IMAGING MINIMUM 3 ASS VIEWS CRTCHS E0114 [employer] UNDARM 3 OTH THAN WOOD PAIR PAD TIP&HNDGR IP PH BODY 52995 SONYA HATCHBERT FLUID NOT 3 PAIN CARE ANNETTE & ELSEWHERE [facility] SPECIFIED CREATININ 91309 SONYA GILBERT E OTHER 3 PAIN CARE ANNETTE SOURCE & BLUEGRA URNLS DIP 11675 SONYA HATCHBERT 3 PAIN CARE ANNETTE STICK/TAB & LET RGNT BL[facility]RA AUTO W/O MICROSCOP Y SPECTROPH 06628 SONYA DOVER OTOMETRY 3 PAIN CARE ANNETTE ANALYT & NOT BLUEGRA ELSEWHERE SPECIFIED CANE INCL E0100 [facility] CANES 3 ALL MATERIAL ADJUSTBLE /FIX W/TIP NEEDLE 48182 ARACELI STILES AMELIA EMG EA 3 N EXTREMTY NEUROLOGY W/PARASPI NL AREA COMPLETE THERAPEUT 62306 [employer], [employer], IC PX 1/> 3 SLURRY CONTROL TENDER SLURRY CONTROL TENDER AREAS JESUS JESUS EACH 15 CO HOS CO HOS MIN EXERCISES THERAPEUT 74897 [employer], [employer], IC PX 1/> 3 SLURRY CONTROL TENDER SLURRY CONTROL TENDER AREAS JESUS JESUS EACH 15 CO HOS CO HOS MIN EXERCISES WALKER E0143 [facility] ABLECARE FOLDING 3 WHEELED ADJUSTABL [place] [address] [employer], [employer], 1/> AREAS 3 SLURRY CONTROL TENDER SLURRY CONTROL TENDER EA 15 JESUS JESUS MIN GAIT CO HOS CO HOS TRAINJ W/STAIR MRI 67782 [facility]URODIAG [place] SPINAL 3 NOSTICS CANAL INC THORACIC W/[place] [address] [employer], [employer], 1/> AREAS 3 SLURRY CONTROL TENDER SLURRY CONTROL TENDER EA 15 JESUS JESUS MIN GAIT CO HOS CO HOS TRAINJ W/STAIR THERAPEUT 20780 [employer], [employer], IC PX 1/> 3 SLURRY CONTROL TENDER SLURRY CONTROL TENDER AREAS JESUS JESUS EACH 15 CO HOS CO HOS MIN EXERCISES THERAPEUT 11824 [employer], [employer], IC PX 1/> 3 SLURRY CONTROL TENDER SLURRY CONTROL TENDER AREAS JESUS JESUS EACH 15 CO HOS CO HOS MIN EXERCISES CUL BACT 44737 [facility] AEROBIC 3 OF AMERIC ADDL TORI HOLDING METHS HOLDINGS DEFINITIV E EA ISOL CULTURE 07663 [facility] BACTERIAL 3 OF AMERIC TORI HOLDING QUANTTATI HOLDINGS VE COLONY COUNT URINE CULTURE 82222 [facility] BCT 3 OF AMERIC ISOL&PRSM TORI HOLDING PTV ID HOLDINGS ISOLATE EA URINE SUSCEPTIB 88927 [facility] LTY STDY 3 OF AMERIC ANTIMICRB TORI HOLDING IAL HOLDINGS MICRO/AGA R DILUTJ THERAPEUT 00968 [facility] [employer], [facility] INC, IC PX 1/> 3 SLURRY CONTROL TENDER SLURRY CONTROL TENDER AREAS JESUS LEE EACH 15 CO HOS CO HOS MIN EXERCISES THERAPEUT 89823 [facility] INC, [facility] INC, IC PX 1/> 3 SLURRY CONTROL TENDER SLURRY CONTROL TENDER AREAS JESUS LEE EACH 15 CO HOS CO HOS MIN EXERCISES PHYSICAL 55207 [facility] [employer], [employer] [facility], THERAPY 3 SLURRY CONTROL TENDER SLURRY CONTROL TENDER EVALUATIO JESUS LEE N CO HOS CO HOS Encounters Encounter Start End Date Code Location Performer Type Date [facility] 7 [facility] T OFFICE 97728 SONNY CORNELIUSE OUTPATIEN 7 7 VESTA ERVIN VISIT ,PSC 25 MINUTES OFFICE 18212 SONNY DENNIS OUTPATIEN 7 7 Brianna ERVIN MD,PSC 25 MINUTES OFFICE 66094 [facility] OUTPATIEN 7 7 CLINIC T VISIT 15 MINUTES [place] SCIENTOLOGIST - 7 7 [facility] 40602 [place] [facility] OUTPATIEN 7 7 SURGICAL T NEW 45 ASSOCIATE MINUTES S OFFICE 39730 [facility] CORTES- OUTPATIEN 7 7 CLINIC SE T VISIT 15 MINUTES OFFICE 26853 [facility] CORTES- OUTPATIEN 7 7 CLINIC SE T VISIT 15 MINUTES OFFICE 75550 SONNY CARDENAS OUTPATIEN 7 7 Brianna ERVIN MD,PSC 25 MINUTES HOSPITAL SCIENTOLOGIST - 7 7 HEALTH OUTPATIEN ORIENT T OFFICE 89528 SCIENTOLOGIST EBONIE OUTPATIEN 7 7 HEALTH T VISIT MEDICAL 40 GROUP MINUTES OFFICE 19008 SONNY DENNIS OUTPATIEN 6 6 Brianna ERVIN MD,PSC 25 MINUTES OFFICE 14717 SONNY DENNIS OUTPATIEN 6 6 JOSELIN ERVIN T VISIT ,PSC 25 MINUTES OFFICE 65317 [facility] CORTES- OUTPATIEN 6 6 CLINIC SE NATHANIEL T VISIT 15 MINUTES OFFICE 84841 SONYA FITZGERAL OUTPATIEN 6 6 PAIN CARE D DARRELL T VISIT & 15 BLUE[facility]RA MINUTES EMERGENCY 46538 [facility] 5 5 [facility] EMERGENCY T VISIT PHYS HIGH/URGE NT SEVERITY [facility]OSP[facility] [place] - 5 5 [facility] T EMERGENCY 88906 [place] 5 5 [facility] T VISIT MODERATE SEVERITY OFFICE 97294 SONYA DO AN OUTPATIEN 5 5 PAIN CARE T VISIT & 15 BLUE[facility]RA MINUTES EMERGENCY 66516 [facility] T VISIT PHYS HIGH/URGE NT SEVERITY OFFICE 83179 [facility] PETTY KAMERON OUTPATIEN 5 5 CLINIC T VISIT 10 MINUTES OFFICE 03850 [facility] PETTY KAMERON OUTPATIEN 5 5 CLINIC T VISIT 15 MINUTES [facility] [place] - 5 5 [facility] T OFFICE 26128 [place] PAIN OZUMBA OUTPATIEN 5 5 CARE & ANDREW T VISIT [facility] 15 HIG MINUTES OFFICE 45524 HASMUKH CORTES- OUTPATIEN 5 5 CLINIC SE NATHANIEL T VISIT 15 MINUTES OFFICE 70926 [place] PAIN OZUMBA OUTPATIEN 5 5 CARE & ANDREW T VISIT [facility] 15 HIG MINUTES OFFICE 65775 SONYA FIELDLIS OUTPATIEN 5 5 PAIN CARE DEM T VISIT & 15 BLUE[facility]RA MINUTES OFFICE 57570 [place] PAIN DANGARIA OUTPATIEN 5 5 CARE & BLAKE T VISIT [facility] 15 HIG MINUTES OFFICE 11209 CHAMBERLA CHAMBERLA OUTPATIEN 5 5 IN CLINIC IN [facility] T VISIT 5 PLLC MINUTES HOSPITAL JOSE - 5 5 MEM HOSP OUTPATIEN INC T PERIODIC 14382 CAPO CHAMBERLA PREVENTIV 5 5 IN CLINIC IN [facility] E MED EST PLLC PATIENT 18-39 YRS OFFICE 76907 [place] PAIN DANGARIA OUTPATIEN 5 5 CARE & BLAKE T VISIT [facility] 15 HIG MINUTES HOSPITAL JOSE - 5 5 MEM HOSP OUTPATIEN [facility] T OFFICE 31249 [place] PAIN DANGARIA OUTPATIEN 5 5 CARE & BLAKE T VISIT [facility] 15 HIG MINUTES OFFICE 65802 [facility] LAUSE FED OUTPATIEN 5 5 T VISIT 15 MINUTES HOSPITAL UNIVERSIT - [address] [facility] T OFFICE 45968 [facility] JAZZ CONSULTAT 5 5 NURSE SANTINO BARRON/SAY WATSON GR PATIENT 80 MIN OFFICE 36792 [facility] FED LAUSE FED OUTPATIEN 5 5 T VISIT 15 MINUTES OFFICE 73897 [facility] MELO OUTPATIEN 5 5 CLINIC T VISIT 15 MINUTES EMERGENCY 02657 [facility] 5 5 ZOILA MU VISIT EMERGENCY HIGH PHYS SEVERITY& THREAT FUN OFFICE 94544 [facility] LAUSE FED OUTPATIEN 5 5 T VISIT 15 MINUTES OFFICE 33584 [facility] LAUSE FED OUTPATIEN 5 5 T NEW 30 MINUTES OFFICE 31774 [facility] MELO OUTPATIEN 5 5 CLINIC T VISIT 15 MINUTES OFFICE 76807 [facility] MELO OUTPATIEN 4 4 CLINIC T VISIT 15 MINUTES [facility]OSP[facility] [place] - 4 4 [facility] T EMERGENCY 91178 [facility] 4 4 [facility] EMERGENCY T VISIT PHYS HIGH/URGE NT SEVERITY HOSPITAL ARREDONDO - OTHER 4 4 NE HOSPITAL EMERGENCY 98674 [facility] 4 4 [facility] T VISIT MODERATE SEVERITY EMERGENCY 17471 [facility] 4 4 [facility] EMERGENCY T VISIT PHYS HIGH/URGE NT SEVERITY OFFICE 08803 [place] PAIN ELISABETH OUTPATIEN 4 4 CARE & LUCIA T VISIT [facility] 15 HIG MINUTES OFFICE 93033 SCIENTOLOGIST TIKHTMAN OUTPATIEN 4 4 NEUROLOGY AMY T VISIT 25 CONSULTAN MINUTES T OFFICE 01852 [place] PAIN ELISABETH OUTPATIEN 4 4 CARE & LUCIA T VISIT [facility] 15 HIG MINUTES OFFICE 22777 TIKHTMAN TIKHTMAN CONSULTAT 4 4 AMY AMY ION NEW/ESTAB PATIENT 80 MIN OFFICE 93173 K[facility]AD[facility]NA[facility] BRITNEY OUTPATIEN 4 4 PAIN CARE IRWIN T VISIT & 25 [facility] JENNY - 4 4 [facility]AL [facility] MEDICAL T CENTE OFFICE 97705 EMILIA NIETO OUTPATIEN 4 4 GRE GRE T VISIT 25 MINUTES OFFICE 69241 SONYA DOVER OUTPATIEN 4 4 PAIN CARE ANNETTE T VISIT & 15 BLUE[facility]RA MINUTES EMERGENCY 86133 [facility] 4 4 [facility] EM[facility] T VISIT PHYSI HIGH/URGE NT SEVERITY HOSPITAL CENTRAL - 4 4 SCIENTOLOGIST OUTPATIEN HOSP T EMERGENCY 55148 BA[facility]ISTA MCPHERSON 4 4 [facility] T VISIT HIGH/URGE NT SEVERITY OFFICE 85142 KENTLADONNAY ELISABETH OUTPATIEN 4 4 PAIN CARE LUCIA T VISIT & 15 BLUEGRA MINUTES OFFICE 36050 LAINE LAINE OUTPATIEN 4 4 MIAH MIAH T VISIT 25 MINUTES HOSPITAL JENNY - 4 4 REGIONAL OUTPATIEN MEDICAL T CENTE OFFICE 80341 SONYA BARBER OUTPATIEN 4 4 PAIN CARE LUCIA T VISIT & 25 BLUE[facility]RA MINUTES HOSPITAL JENNY - 4 4 REGIONAL OUTPATIEN MEDICAL T CENTE OFFICE 27996 JENNY LAINE CONSULTAT 4 4 REGIONAL MIAH ION PHYSICIAN NEW/ESTAB PRA PATIENT 60 MIN HOSPITAL [facility], - 4 4 SLURRY CONTROL TENDER OUTPATIEN JESUS T CO HOS OFFICE 79240 SONYA DOVER OUTPATIEN 4 4 PAIN CARE ANNETTE T VISIT & 25 BLUEGRA MINUTES OFFICE 33338 SONYA BREAUX OUTPATIEN 4 4 PAIN CARE T VISIT & 25 BLUEGRA MINUTES OFFICE 86077 SONYA DOVER OUTPATIEN 4 4 PAIN CARE ANNETTE T VISIT & 25 BLUEGRA MINUTES OFFICE 12804 [facility] YEH TRA OUTPATIEN 4 4 [place] T VISIT ORTHOPAED 15 ICS PLC MINUTES OFFICE 84843 SONYA DOVER OUTPATIEN 4 4 PAIN CARE ANNETTE T VISIT & 25 BLUE[facility]RA MINUTES OFFICE 89149 [facility] YEH TRA OUTPATIEN 4 4 [place] T VISIT ORTHOPAED 15 ICS PLC MINUTES OFFICE 68173 YEH TRA YEH TRA OUTPATIEN 4 4 T VISIT 15 MINUTES OFFICE 74426 SONYA DOVER OUTPATIEN 4 4 PAIN CARE ANNETTE T VISIT & 15 BLUEGRA MINUTES OFFICE 02321 [facility]EN[facility] YEH TRA CONSULTAT 3 3 [place] ION ORTHOPAED NEW/ESTAB ICS PLC PATIENT 60 MIN HOSPITAL [facility], - 3 3 SLURRY CONTROL TENDER OUTPATIEN JESUS T CO HOS OFFICE 25766 SONYA DOVER OUTPATIEN 3 3 PAIN CARE ANNETTE T VISIT & 15 BLUEGRA MINUTES EMERGENCY 63365 BRUNO QUINTANILLA 3 3 EMERGENCY DEPARTMEN SERVICES T VISIT HIGH/URGE NT SEVERITY OFFICE 57628 SONYA DOVER OUTPATIEN 3 3 PAIN CARE ANNETTE T NEW 30 & MINUTES [facility] OFFICE 11255 [facility] BEATTY OUTPATIEN 3 3 CLINIC HEN T VISIT 15 MINUTES HOSPITAL [facility], - 3 3 SLURRY CONTROL TENDER OUTPATIEN JESUS T CO HOS [facility]ITAL [facility], - 3 3 SLURRY CONTROL TENDER OUTPATIEN JESUS T [facility], - 3 3 SLURRY CONTROL TENDER OUTPATIEN JESUS T CO HOS OFFICE 21919 ARACELI CISNEROS OUTPATIEN 3 3 N T VISIT NEUROLOGY 25 MINUTES HOSPITAL [facility], - 3 3 SLURRY CONTROL TENDER OUTPATIEN JESUS T CO [facility], - 3 3 SLURRY CONTROL TENDER OUTPATIEN JES[facility], - 3 3 SLURRY CONTROL TENDER OUTPATIEN JESUS T CO HOS OFFICE 74619 ARACELI WALDROPS OUTPATIEN 3 3 N T NEW 45 NEUROLOGY MINUTES HOSPITAL [facility], - 3 3 SLURRY CONTROL TENDER OUTPATIEN [facility], - 3 3 SLURRY CONTROL TENDER OUTPATIEN JESUS T CO HOS
--- OUTSIDE RECORDS SUMMARY | 2017-05-22 19:32 | External Medical Summary Rpt | CCD ---
Demographics Preferred Language Libyan Marital Status Unknown Hindu Affiliation Unknown Race Unknown Ethnic Group Unknown Author Author , ROSE ROSE Address Unknown Phone Immunization No patient found.
--- OUTSIDE RECORDS SUMMARY | 2017-05-22 19:32 | External Medical Summary Rpt ---
Author Author ROSE Chambers, [employer] Organization [employer] Address Unknown Phone Unavailable Results PELVIS Observa Value Referen Units Interpr Notes Date tion ce etation Range PELVIS No No No No Jul 13 informa informa informa informa 2013 tion in tion in tion in tion in 5:32 PM source source source source data data data data [facility]\.br\ [address]br \ [place] [address]\. br\\.br \ RADIOLO GY REPORT\ .br\ Name: RUBA MALONEY\ .br\ Patient #: [id number] Stay Type: E/R\.br \ Age: 34 Room: [facility]\. br\ : 978 Sex: F\.br\ Orderin g Phys: RAUL WATERMAN MR#: [id number]\. br\ Family Phys: JACI HE Pt Phone: [phone] /[phone]\. br\ Admitti ng Phys: RAUL WATERMAN\.b r\ Unsig mya Transcr iptions represe nt a prelimi nary report and do\.br\ not reflect a medical or legal documen t.\.b r\\.br\ \.br\ PELVIS [id number] COMPLET E:07/13 18:31 ACF 86422\. br\ Diagnos is: PAIN\.b r\\.br\ \.br\\. br\ CLINICA L HISTORY : Pelvic pain.\. br\\.br \ COMPARI SON: None.\. br\\.br \ FINDING S: There is no acute fractur e or disloca tion. There is mild osteoph yte formati on of the\.br \ lateral acetabu lar rims bilater ally without loss of joint space height. There is also mild osteoph yte\.br \ formati on of the left SI joint. There is right hemisac ralizat ion of L5. 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 \.br\\. br\\.br \ Electro nically reviewe d and signed by:\.br \ RONALD WHYTE MD\.br\ RADIOLO GIST/ 15:19\. br\\.br \ Dictati on Date/Ti me: 49:21 Dictate d By: RONALD WHYTE MD RADIOLO GIST\.b r\ Transcr . Date/Ti me: 14:19 Transcr . Init.: rjh\.br \\.br\ Copy for: RAUL TAMEZ\. br\ Copy for: [facility] HEALTH INFORMA TION MANAGEM ENT\.br \ DISCHAR GED\.br \\.br\ KAELA ANTI NUCLEAR ANTIBODIES w/ REFLEX Observa Value Referen Units Interpr Notes Date tion ce etation Range _ANA No No No No Jul 17 (ANTI-N informa informa informa informa 2013 UCLEAR tion in tion in tion in tion in 1:21 PM ANTIBOD source source source source IES)_ data data data data KAELA No No No No Jul 17 w/Refle informa informa informa informa 2013 x tion in tion in tion in tion in 1:21 PM source source source source data data data data Reporte No No No No Jul 17 d: informa informa informa informa 07/17/ tion in tion in tion in tion in 1:21 PM 014 source source source source 13:12 data data data data Status= F ------- No No No No Jul 17 ------- informa informa informa informa 2013 ------- tion in tion in tion in tion in 1:21 PM ------- source source source source ------- data data data data ------- ------- ------- ------- ------- ------- --- TEST No No No No Jul 17 informa informa informa informa 2013 tion in tion in tion in tion in 1:21 PM source source source source RESULT data data data data FLAG RANGE UNITS SC ------- No No No No Jul 17 ------- informa informa informa informa 2013 ------- tion in tion in tion in tion in 1:21 PM ------- source source source source ------- data data data data ------- ------- ------- ------- ------- ------- --- KAELA No No No Jul 17 Direct informa informa informa informa 2013 tion in tion in tion in tion in 1:21 PM source source source source data data data data Negativ e Negativ e CB 4.1312. [facility].COM PLETE.L CTR No No No No No Jul 17 informa informa informa informa informa 2013 tion in tion in tion in tion in tion in 1:21 PM source source source source source data data data data data Test No No No No Jul 17 perform informa informa informa informa 2014 ed at: tion in tion in tion in tion in 1:21 PM [facility] source source source source [place] data data data data 6370 No No No No Jul 17 White informa informa informa informa 2014 Road tion in tion in tion in tion in 1:21 PM source source source source data data data data Stephanie, No No No No Jul 17 [place] informa informa informa informa 2014 83004-3 tion in tion in tion in tion in 1:21 PM 296 source source source source data data data data 614 No No No No Jul 17 [id number] informa informa informa informa 2014 1 tion in tion in tion in tion in 1:21 PM source source source source data data data data [place] No No No No Jul 17 R. informa informa informa informa 2014 Thrashe tion in tion in tion in tion in 1:21 PM MD lorenzo source source source source data data data data COMPREHENSIVE METABOLIC PANEL CMP Observa Value Referen Units Interpr Notes Date tion ce etation Range Sodium 143 136 - mmol/L No No Jul 13 [Moles/ 145 informa informa 2014 volume] tion in tion in 6:42 PM in source source Serum data data or Plasma Potassi 2.6 3.5 - mmol/L Low No Jul 13 um 5.1 alert informa 2013 [Moles/ tion in 6:42 PM volume] source in data Serum or Plasma Microbi MESSAGE No No No No Jul 13 ology LEFT informa informa informa informa 2014 studies FOR tion in tion in tion in tion in 6:42 PM (set) NELLY Sharma source source source source TO data data data data RETURN CALL 17 Microbi NO No No No No Jul 13 ology RETURN informa informa informa informa 2014 studies CALL tion in tion in tion in tion in 6:42 PM (set) 1840.ID source source source source INTED. data data data data FAXED. Chlorid 106 98 - mmol/L No No Jul 13 e 107 informa informa 2013 [Moles/ tion in tion in 6:42 PM volume] source source in data data Serum or Plasma TOTAL 27 21 - 32 mmol/L No No Jul 13 CO2 informa informa 2014 tion in tion in 6:42 PM source source data data Anion 13 5 - 15 mmol/L No No Jul 13 gap in informa informa 2014 Serum tion in tion in 6:42 PM or source source Plasma data data Glucose 86 70 - mg/dl No No Jul 13 120 informa informa 2014 [Mass/v tion in tion in 6:42 PM olume] source source in data data Serum or Plasma Urea 29 7 - 18 mg/dl High No Jul 13 nitroge informa 2014 n tion in 6:42 PM [Mass/v source olume] data in Serum or Plasma Creatin 0.9 0.6 - mg/dl No No Jul 13 ine 1.3 informa informa 2014 [Mass/v tion in tion in 6:42 PM olume] source source in data data Serum or Plasma AGE 34 No yrs No No Jul 13 informa informa informa 2014 tion in tion in tion in 6:42 PM source source source data data data GFR >60 No ml/min No Jul 13 informa informa informa 2014 tion in tion in tion in 6:42 PM source source source data data data Calcium 9.0 8.5 - mg/dl No No Jul 13 10.1 informa informa 2013 [Mass/v tion in tion in 6:42 PM olume] source source in data data Serum or Plasma Bilirub 0.1 0.2 - mg/dl Low No Jul 13 in.tota 1.0 informa 2013 l tion in 6:42 PM [Mass/v source olume] data in Serum or Plasma Asparta 22 15 - 37 IU/L No No Jul 13 te informa informa 2014 aminotr tion in tion in 6:42 PM ansfera source source se data data [Enzyma tic activit y/volum e] in Serum or Plasma Alanine 26 12 - 78 IU/L No No Jul 13 informa informa 2014 aminotr tion in tion in 6:42 PM ansfera source source se data data [Enzyma tic activit y/volum e] in Serum or Plasma Alkalin 99 42 - 98 IU/L High No Jul 13 e informa 2013 phospha tion in 6:42 PM tase source [Enzyma data tic activit y/volum e] in Serum or Plasma Protein 7.0 6.4 - g/dl No Jul 13 8.2 informa informa 2013 [Mass/v tion in tion in 6:42 PM olume] source source in data data Serum or Plasma Albumin 3.3 3.4 - g/dl Low No Jul 13 5.0 informa 2013 [Mass/v tion in 6:42 PM olume] source in data Serum or Plasma GLOBULI 3.7 1.3 - g/dl High No Jul 13 N 3.5 inform2013 tion in 6:42 PM source data A/G 0.9 1.0 - ratio Low Jul 13 RATIO 3.9 informa 2013 tion in 6:42 PM source data \BLDo\G No No No No Jul 13 LOMERUL informa informa informa informa 2014 AR tion in tion in tion in tion in 6:42 PM FILTRAT source source source source ION data data data data RATE INTERPR ETATION \BLDx\ Normal No No No No Jul 13 Range: informa informa informa informa 2014 >60 tion in tion in tion in tion in 6:42 PM Ml/min/ source source source source 1.73 sq data data data data meters If No No No No Jul 13 patient informa informa informa informa 2013 is tion in tion in tion in tion in 6:42 PM source source source source data data data data Riri n, multipl y GFR by 1.120. *GFR No No No No Jul 13 only informa informa informa informa 2013 applies tion in tion in tion in tion in 6:42 PM to source source source source adults data data data data over the age 18. SED RATE Observa Value Referen Units Interpr Notes Date tion ce etation Range Erythro 25 0 - 20 mm/hr High No Jul 13 cyte informa 2013 sedimen tion in 5:39 PM tation source rate by data [place] method CBC W DIFF AUTOMATED Observa Value Referen Units Interpr Notes Date tion ce etation Range Leukocy 5.5 4.5 - K/uL No No Jul 13 rekha 11.5 informa informa 2013 [#/volu tion in tion in 4:39 PM me] in source source Blood data data by Automat ed count Erythro 3.45 4.00 - M/uL Low No Jul 13 cytes 5.40 informa 2013 [#/volu tion in 4:39 PM me] in source Blood data by Automat ed count Hemoglo 11.4 12.0 - g/dL Low No Jul 13 bin 15.0 informa 2013 [Mass/v tion in 4:39 PM olume] source in data Blood Hematoc 32 35 - 49 % Low No Jul 13 rit informa 2013 [Volume tion in 4:39 PM source Fractio data n] of Blood by Automat ed count Erythro 93.3 80.0 - fL No No Jul 13 cyte 100 informa informa 2014 mean tion in tion in 4:39 PM corpusc source source ular data data volume [Entiti c volume] by Automat ed count Erythro 33.0 26.0 - pg High No Jul 13 cyte 32.0 informa 2014 mean tion in 4:39 PM corpusc source ular data hemoglo bin [Entiti c mass] by Automat ed count Erythro 35.4 32.0 - g/dL No No Jul 13 cyte 36.0 informa informa 2014 mean tion in tion in 4:39 PM corpusc source source ular data data hemoglo bin concent ration [Mass/v olume] by Automat ed count Erythro 11.8 11.5 - % No No Jul 13 cyte 14.5 informa informa 2014 distrib tion in tion in 4:39 PM ution source source width data data [Ratio] by Automat ed count Platele 277 150 - K/uL No No Jul 13 ts 450 informa informa 2014 [#/volu tion in tion in 4:39 PM me] in source source Blood data data by Automat ed count Lymphoc 35.8 18.0 - % No No Jul 13 ytes/10 42.0 informa informa 2014 0 tion in tion in 4:39 PM leukocy source source rekha in data data Blood by Automat ed count Monocyt 9.9 2.0 - % No No Jul 13 es/100 11.0 informa informa 2014 leukocy tion in tion in 4:39 PM rekha in source source Blood data data by Automat ed count Neutrop 48.2 50.0 - % Low No Jul 13 hils.ba 70.0 informa 2014 nd tion in 4:39 PM form/10 source 0 data leukocy rekha in Blood by Manual count Eosinop 5.50 1.00 - % High No Jun 18 hils/10 3.00 informa 2014 0 tion in 4:39 PM leukocy source rekha in data Blood by Automat ed count Basophi 0.60 0.00 - % No No Jul 13 ls/100 2.00 informa informa 2014 leukocy tion in tion in 4:39 PM rekha in source source Blood data data by Automat ed count Lymphoc 1.95 0.60 - K/uL No No Jul 13 ytes/10 3.40 informa informa 2014 0 tion in tion in 4:39 PM leukocy source source rekha in data data Blood by Automat ed count Monocyt 0.54 0.00 - K/uL No No Jul 13 es/100 0.90 informa informa 2014 leukocy tion in tion in 4:39 PM rekha in source source Blood data data by Automat ed count Neutrop 2.63 2.00 - K/uL No Jul 13 hils.ba 6.90 informa informa 2014 nd tion in tion in 4:39 PM form/10 source source 0 data data leukocy rekha in Blood by Manual count Eosinop 0.30 0.00 - K/uL No No Jul 13 hils/10 0.70 informa informa 2014 0 tion in tion in 4:39 PM leukocy source source rekha in data data Blood by Automat ed count Basophi 0.03 0.00 - K/uL No No Jul 13 ls/100 0.20 informa informa 2014 leukocy tion in tion in 4:39 PM rekha in source source Blood data data by Automat ed count Manual NOT No No No No Jul 13 Diff INDICAT informa informa informa informa 2014 ED tion in tion in tion in tion in 4:39 PM source source source source data data data data RHEUMATOID FACTOR QT Observa Value Referen Units Interpr Notes Date tion ce etation Range _RHEUMA No No No No Jul 15 TOID informa informa informa informa 2014 FACTOR, tion in tion in tion in tion in 5:59 PM QT._ source source source source data data data data Rheumat No No No No Jul 15 oid informa informa informa informa 2014 Arthrit tion in tion in tion in tion in 5:59 PM is source source source source Factor data data data data Reporte No No No No Jul 15 d: informa informa informa informa 2014 tion in tion in tion in tion in 5:59 PM 014 source source source source 06:27 data data data data Status= F ------- No No No No Jul 15 ------- informa informa informa informa 2013 ------- tion in tion in tion in tion in 5:59 PM ------- source source source source ------- data data data data ------- ------- ------- ------- ------- ------- --- TEST No No No No Jul 15 informa informa informa informa 2013 tion in tion in tion in tion in 5:59 PM source source source source RESULT data data data data FLAG RANGE UNITS SC ------- No No No No Jul 15 ------- informa informa informa informa 2013 ------- tion in tion in tion in tion in 5:59 PM ------- source source source source ------- data data data data ------- ------- ------- ------- ------- ------- --- RA No No No No Jul 15 Latex informa informa informa informa 2014 Turbid. tion in tion in tion in tion in 5:59 PM source source source source 8.4 data data data data 0.0-13. 9 IU/mL 4.0627. rfl.COM PLETE.L CTR No No No No No Jul 15 informa informa informa informa informa 2014 tion in tion in tion in tion in tion in 5:59 PM source source source source source data data data data data Test No No No No Jul 15 perform informa informa informa informa 2014 ed at: tion in tion in tion in tion in 5:59 PM [facility] source source source source [place] data data data data 6370 No No No No Jul 15 White informa informa informa informa [address] tion in tion in tion in tion in 5:59 PM source source source source data data data data [place], No No No No Jul 15 [place] informa informa informa informa 2014 21070-4 tion in tion in tion in tion in 5:59 PM 296 source source source source data data data data 614 No No No No Jul 15 889-106 informa informa informa informa 2014 1 tion in tion in tion in tion in 5:59 PM source source source source data data data data [place] No No No No Jul 15 RMp informa informa informa informa 2013 Thrashe tion in tion in tion in tion in 5:59 PM MD lorenzo source source source source data data data data
--- OUTSIDE RECORDS SUMMARY | 2017-05-22 19:32 | External Medical Summary Rpt ---
Author Author ROSE Chambers, [employer] Organization [employer] Address Unknown Phone Unavailable Results PELVIS Observa Value Referen Units Interpr Notes Date tion ce etation Range PELVIS No No No No Jul 13 informa informa informa informa 2013 tion in tion in tion in tion in 5:32 PM source source source source data data data data [facility]\.[facility]\ [address]br \ [place] [address]\. br\\.br \ RADIOLO GY REPORT\ .br\ Name: RUBA MALONEY\ .br\ Patient #: [id number] Stay Type: E/R\.br \ Age: 34 Room: [facility]\. br\ : 978 Sex: F\.br\ Orderin g Phys: RAUL WATERMAN MR#: [id number]\. br\ Family Phys: JACI HE Pt Phone: [phone] /[phone]\. br\ Admitti ng Phys: RAUL WATERMAN\.b r\ Unsig mya Transcr iptions represe nt a prelimi nary report and do\.br\ not reflect a medical or legal documen t.\.b r\\.br\ \.br\ PELVIS 46299 COMPLET E:07/13 18:31 ACF 85919\. br\ Diagnos is: PAIN\.b r\\.br\ \.br\\. br\ [...] Copy for: RAUL TAMEZ\. br\ Copy for: [facility] HEALTH INFORMA TION MANAGEM ENT\.br \ DISCHAR [...] data Negativ e Negativ e CB 4.1312. [facility].COM PLETE.L CTR No No No No No [...] 1:21 PM [facility] source source source source [place] data data data data 6370 No No No No Jul 17 White informa informa informa informa [address] tion in tion in tion in tion in 1:21 PM source source source source data data data data Stephanie, No No No No Jul 17 [place] informa informa informa informa 2014 51351-5 tion in tion in tion in tion [...] tion in tion in 6:42 PM (set) 1840.AK source source source source INTED. data data [...] 5:59 PM [facility] source source source source [place] data data data data 6370 No No No No Jul 15 White informa informa informa informa [address] tion in tion in tion in tion in 5:59 PM source source source source data data data data [place], No No No No Jul 15 [place] informa informa informa informa 2014 [id number] tion in tion in tion in tion [...]
--- OUTSIDE RECORDS SUMMARY | 2017-05-22 19:32 | External Medical Summary Rpt | CCD ---
Demographics Preferred Language Bahraini Marital Status Unknown Episcopal Affiliation Unknown Race Unknown Ethnic Group Unknown Author Author , ROSE ROSE Address Unknown Phone Immunization No patient found.
[2017-05-22 20:24] LABS: HEMOGLOBIN 12.8 g/dL (12.2-16.2); LYMPH # 2.7 K/mm3 (0.7-4.5); LYMPH % 23.5 % (10-50.0)
[2017-05-22 20:52] LABS: BUN 13 mg/dL (7-18)
[2017-05-22 21:01] LABS: GFR (ESTIMATED) 70 ML/MIN (59-)
[2017-05-22 21:16] VITALS: BP 98/53
== END 2017-05-22 21:30 | disposition home or self-care (01) ==
LOC: ER 16:52
PROVIDERS: General Practice
DX: M54.2 Cervicalgia (principal); S06.2X1A Diffuse traumatic brain injury with loss of consciousness of 30 minutes or less, initial encounter; W01.10XA Fall on same level from slipping, tripping and stumbling with subsequent striking against unspecified object, initial encounter; Y92.012 Bathroom of single-family (private) house as the place of occurrence of the external cause; I10 Essential (primary) hypertension
CPT/HCPCS: J2405